=== PATIENT | male | born 1940 | race Caucasian/White ===

== ENCOUNTER 2018-03-24 06:02 | Inpatient (IN) ==
[2018-03-24] MEDS ORDERED: Acetaminophen 650 MG Supp RECTAL ONE (06:10)
[2018-03-24] MEDS ORDERED: Propofol 1000 mg/100 ml Inj 1,000 MG/100 ML BOTTLE IV.CONT PRN (06:12)
[2018-03-24] MEDS ORDERED: Sod Chloride 0.9% Inj 1,000 ML IV.SIG SCH ×3 (06:15→08:00)
--- NOTE | 2018-03-24 06:22 | ED ---
HPI General Chief Complaint: Shortness of Breath/Dyspnea Stated Complaint: SOB Time Seen by Provider: 03/24/18 06:08 History of Present Illness HPI Narrative: Patient is 78-year-old male with history of chronic sinusitis, COPD, was brought to emergency room for severe dyspnea. As per EMS patient has trouble to breathe they had to intubate him. Patient was brought to the emergency room intubated. His fever 103 Fahrenheit, Tylenol ordered, IV fluids started. Patient has severe rhonchi bilaterally, most likely due to pneumonia. Systolic blood pressure is 86, patient started on Versed drip. Patient initially agreed with intubation. Family also agreed with intubation. As per living will patient is DNR, and family agreed with no CPR in case of cardiac arrest. Case was discussed with Dr. Rodrigues, maintenance craftsman. He agreed with admission to intensive care unit in [place]. Related Data Home Medications Medication Instructions Recorded Confirmed Unable to Obtain Home Meds 03/24/18 03/24/18 Allergies Allergy/AdvReac Type Severity Reaction Status Date / Time amoxicillin Allergy Intermediate VOMITING Verified 03/24/18 06:57 cefuroxime Allergy Intermediate UNKNOWN Verified 03/24/18 06:57 clavulanic acid Allergy Intermediate VOMITING Verified 03/24/18 06:57 Sulfa (Sulfonamide Allergy Unknown ABDOMINAL Verified 03/24/18 06:57 Antibiotics) PAIN Review of Systems ROS: all other systems reviewed are negative Respiratory Reports dyspnea PMFSH Medical History Medical History COPD (chronic obstructive pulmonary disease) (Acute) Diverticulitis (Acute) Lung cancer (Acute) Sinus congestion (Acute) Social History Social History Substance History: No History of Abuse Smoking Status: Current every day smoker Tobacco Type: Cigarettes How Often Do You Have a Drink Containing Alcohol: Never Recent Travel in [facility] within the Last 8 Weeks: No Recent Out of Country Travel within the Last 8 Weeks: No Exam Narrative Exam Narrative: GENERAL: Patient is a 78-year-old male in respiratory distress, intubated. SKIN: Focused skin assessment warm/dry. HEAD: Atraumatic. Normocephalic. EYES: Pupils equal and round. No scleral icterus. No injection or drainage. ENT: No nasal bleeding or discharge. Mucous membranes pink and moist. NECK: Trachea midline. No JVD. CARDIOVASCULAR: Regular rate and rhythm. No murmur appreciated. RESPIRATORY: Intubated, bilateral rhonchi noted. GASTROINTESTINAL: Abdomen soft, non-tender, nondistended. Hepatic and splenic margins not palpable. MUSCULOSKELETAL: No obvious deformities. No clubbing. No cyanosis. No edema. NEUROLOGICAL: Awake and alert. No obvious cranial nerve deficits. Motor grossly within normal limits. Normal speech. PSYCHIATRIC: Appropriate mood and affect; insight and judgment normal. Procedures Central Line Placement Right Femoral: Time Out Performed: Yes Patient Placed on Monitor/Pulse Ox: Yes MD Prep: mask, gown, gloves and other Central Line Prep: Chlorhexidine scrub Local anesthesia used: lidocaine 1% Amount of anesthesia used (mL): 20 Ultrasound Used for Placement: Yes Central Line Lumen Inserted: triple Post Procedure: sutured in place, good blood return, all ports aspirated, flushed, capped and sterile dressing applied Patient Tolerated Procedure: well Complications: none Course Initial Documented Vital Signs Temperature 103.2 F H 03/24/18 06:05 Pulse Rate 108 H 03/24/18 06:05 Respiratory Rate 16 03/24/18 06:05 Blood Pressure 80/40 L 03/24/18 06:05 Pulse Oximetry 98 03/24/18 06:05 Last Documented Vital Signs Temperature 103.2 F H 03/24/18 06:05 Pulse Rate 106 H 03/24/18 07:35 Respiratory Rate 16 03/24/18 07:35 Blood Pressure 103/60 03/24/18 07:35 Pulse Oximetry 100 03/24/18 07:35 Critical Care Time Critical Care Time: Yes Total Critical Care Time: 50 Attestation: Aggregate critical care time was 50 minutes. Time to perform other separately billable procedures was not included in the critical care time. My time did not include minutes spent treating any other patients simultaneously or on activities that did not directly contribute to the patient's treatment. The services I provided to this patient were to treat and/or prevent clinically significant deterioration that could result in: [-] I provided critical care services requiring my management, as noted below: Chart data review, documentation time, medication orders and management, vital sign assessments/reviewing monitor data, ordering and reviewing lab tests, ordering and interpreting/reviewing x-rays and diagnostic studies, care of the patient and discussion of the patient with the admitting physicians. Patient is in critical condition, has sepsis due to pneumonia, dehydrated, has bilateral pneumonia. Admitted to ICU. Medical Decision Making MDM Narrative Medical decision making narrative: Patient presented with fever, clinically pneumonia, treated with IV fluids. Labs ordered, x-ray. Reevaluation is pending. Patient is intubated, central line placed, he was given fluids, vitals improved. Patient will be admitted to intensive care unit under Dr. Ravi parada. Medical Screen Exam Complete: Yes Emergency Medical Condition: Yes Lab Data Result diagrams: 03/24/18 06:15 03/24/18 06:50 Lab Results 03/24/18 03/24/18 03/24/18 Range/Units 06:15 06:15 06:20 CBC w Diff Auto diff final WBC 9.2 (4.0-11.0) th/mm3 RBC 4.16 L (4.50-5.90) mil/mm3 Hgb 12.3 L (13.0-17.0) gm/dL Hct 38.9 L (39.0-51.0) % MCV 93.6 (80.0-100.0) fL MCH 29.7 (27.0-34.0) pg MCHC 31.7 L (32.0-36.0) % RDW 14.1 (11.6-17.2) % Plt Count 298 (150-450) th/mm3 MPV 8.5 (7.0-11.0) fL Neut % (Auto) 82.8 H (16.0-70.0) % Lymph % (Auto) 4.0 L (9.0-44.0) % [place] % (Auto) 12.1 H (0.0-8.0) % Eos % (Auto) 0.1 (0.0-4.0) % Baso % (Auto) 1.0 (0.0-2.0) % Neut # (Auto) 7.6 (1.8-7.7) th/mm3 Lymph # (Auto) 0.4 L (1.0-4.8) th/mm3 [place] # (Auto) 1.1 H (0.0-0.9) th/mm3 Eos # (Auto) 0.0 (0.0-0.4) th/mm3 Baso # (Auto) 0.1 (0.0-0.2) th/mm3 WBC Differential . Differential Comment . Sodium (136-145) meq/L Potassium (3.5-5.1) meq/L Chloride (98-107) meq/L Lactic Acid 1.3 (0.4-2.0) mmol/L B-Natriuretic Peptide (0-100) pg/mL Ur Collection Type Cath Urine Color Yellow (Yellw/Straw) Urine Clarity Clear (Clear) Urine pH 6.0 (5.0-8.5) Ur Specific [place] Greater/equal 1.030 (1.002-1.035) Urine Protein 100 H (Neg-Trace) mg/dL Urine Glucose (UA) Negative (Negative) mg/dL Urine Ketones Negative (Negative) mg/dL Urine Occult Blood Trace (Negative) Urine Nitrate Negative (Negative) Urine Bilirubin Negative (Negative) Urine Urobilinogen 1.0 (Less than 2) mg/dL Ur Leukocyte Esterase Negative (Negative) Urine RBC 4-15 H (0-3) /hpf Urine WBC 0-5 (0-5) /hpf Urine Mucus Occasional (Occasional) /lpf Micro UA Comment Cath-culture not ind Ur Microscopic Review Microscopic reviewed Urine Culture Comments Cath-cult not ind 03/24/18 03/24/18 Range/Units 06:25 06:50 CBC w Diff WBC (4.0-11.0) th/mm3 RBC (4.50-5.90) mil/mm3 Hgb (13.0-17.0) gm/dL Hct (39.0-51.0) % MCV (80.0-100.0) fL MCH (27.0-34.0) pg MCHC (32.0-36.0) % RDW (11.6-17.2) % Plt Count (150-450) th/mm3 MPV (7.0-11.0) fL Neut % (Auto) (16.0-70.0) % Lymph % (Auto) (9.0-44.0) % [place] % (Auto) (0.0-8.0) % Eos % (Auto) (0.0-4.0) % Baso % (Auto) (0.0-2.0) % Neut # (Auto) (1.8-7.7) th/mm3 Lymph # (Auto) (1.0-4.8) th/mm3 [place] # (Auto) (0.0-0.9) th/mm3 Eos # (Auto) (0.0-0.4) th/mm3 Baso # (Auto) (0.0-0.2) th/mm3 WBC Differential Differential Comment Sodium 139 (136-145) meq/L Potassium 4.5 (3.5-5.1) meq/L Chloride 103 (98-107) meq/L Lactic Acid (0.4-2.0) mmol/L B-Natriuretic Peptide 168 H (0-100) pg/mL Ur Collection Type Urine Color (Yellw/Straw) Urine Clarity (Clear) Urine pH (5.0-8.5) Ur Specific [place] (1.002-1.035) Urine Protein (Neg-Trace) mg/dL Urine Glucose (UA) (Negative) mg/dL Urine Ketones (Negative) mg/dL Urine Occult Blood (Negative) Urine Nitrate (Negative) Urine Bilirubin (Negative) Urine Urobilinogen (Less than 2) mg/dL Ur Leukocyte Esterase (Negative) Urine RBC (0-3) /hpf Urine WBC (0-5) /hpf Urine Mucus (Occasional) /lpf Micro UA Comment Ur Microscopic Review Urine Culture Comments Imaging Data Radiologist's impression: Chest X-Ray 03/24/18 06:08 CONCLUSION: Endotracheal tube extending beyond the level of the clavicles and directed towards the right main bronchus. Recommend retraction by approximately 3 to 4 cm. New bilateral perihilar airspace opacities consistent with an infectious process. Discharge Plan Discharge Disposition Patient Disposition: ED Admit(ED Internal Use Only) Discharge Condition Condition: Critical Discharge Order Discharge Orders: ED Use Only Admit Order (Routine); Ordered 03/24/18 Ordered By: Aniket Reynolds Discharge Details Diagnosis: Respiratory failure, COPD exacerbation, Bilateral pneumonia Physicians Team ED Provider: Aniket Reynolds Primary Care Provider: Leroy Marie Rxs /Orders / Referrals /Forms Prescriptions: No Action Unable to Obtain Home Meds RF: 0 Discharge Interventions Interventions: Vital Signs Last Done: 03/24/18 07:35 Status ED Status: Admitted Patient
[2018-03-24 06:32] LABS: Bilirubin,Urine Negative (Negative); Clarity,Urine Clear (Clear); Color,Urine Yellow (Yellw/Straw); Glucose,Urine (UA) Negative (Negative); Leukocyte Esterase,Urine Negative (Negative); Nitrite,Urine Negative (Negative); Specific Gravity,Urine Greater/Equal 1.030 (1.002-1.035)
[2018-03-24 06:34] LABS: Baso # (Auto) 0.1 th/mm3 (0.0-0.2); Eos % (Auto) 0.1 % (0.0-4.0); Hematocrit 38.9 % (39.0-51.0); Hemoglobin 12.3 gm/dL (13.0-17.0); Lymph # (Auto) 0.4 th/mm3 (1.0-4.8); Mean Corpuscular HGB Conc 31.7 % (32.0-36.0); Mean Corpuscular Hemoglobin 29.7 pg (27.0-34.0); Mean Corpuscular Volume 93.6 fL (80.0-100.0); Mean Platelet Volume 8.5 fL (7.0-11.0); Mono # (Auto) 1.1 th/mm3 (0.0-0.9); Mono % (Auto) 12.1 % (0.0-8.0); Neut # (Auto) 7.6 th/mm3 (1.8-7.7); Neut % (Auto) 82.8 % (16.0-70.0); Platelet Count 298 th/mm3 (150-450); Red Blood Count 4.16 mil/mm3 (4.50-5.90); Red Cell Distribution Width 14.1 % (11.6-17.2); White Blood Count 9.2 th/mm3 (4.0-11.0)
[2018-03-24 06:42] LABS: WBC,Urine 0-5 /hpf (0-5)
[2018-03-24 06:43] LABS: Mucus,Urine Occasional /lpf (Occasional)
[2018-03-24] MEDS ORDERED: Levofloxacin 500 mg Premix Inj 500 MG/100 ML PIGGYBACK IV.SIG ONE (06:45)
[2018-03-24] MEDS ORDERED: Vancomycin Inj 1,000 MG in Sodium Chlor 0.9% Inj 250 ML IV.SIG STA (06:45)
--- NOTE | 2018-03-24 06:50 | XR ---
EXAM DATE: 03/24/2018 6:42 AM EST AGE/SEX: 78 years / Male INDICATIONS: Post intubation and NG tube placement. CLINICAL DATA: This is the patient's initial encounter. Patient reports that signs and symptoms have been present for 1 day and indicates a pain score of Nonresponsive. MEDICAL/SURGICAL HISTORY: Carcinoma, lung. COPD. Asthma. Arthritis. Diverticulitis Tonsillecto my. Hip surgery. COMPARISON: POI, XR CHEST PA AND LAT, 05/10/2017. . FINDINGS: There is an endotracheal tube with the tip directed towards the right main bronchus. Recommend retrac tion by approximately 3 to 4 cm. NG tube in extending beyond the imaged portion of the film. Heart size is normal. Pulmonary vasculature appears normal in caliber and there is bilateral perihilar patchy airspace cons olidation present. Osseous structures are unremarkable. CONCLUSION: Endotracheal tube extending beyond the level of the clavicles and directed towards the right main bro nchus. Recommend retraction by approximately 3 to 4 cm. New bilateral perihilar airspace opacities co nsistent with an infectious process. Electronically signed by: Carli Correa MD Board Certified Radiologist 03/24/2018 6:49 AM [facility] [place]
[2018-03-24] MEDS ORDERED: Sodium Chlor 0.9% Inj 500 ML IV.SIG SCH (07:00)
[2018-03-24 07:05] LABS: Chloride 103 meq/L (98-107); Potassium 4.5 meq/L (3.5-5.1); Sodium 139 meq/L (136-145)
[2018-03-24 07:34] LABS: Alanine Aminotransferase 29 U/L (12-78); Albumin 2.1 g/dL (3.4-5.0); Alkaline Phosphatase 94 U/L (45-117); Anion Gap 5 meq/L (5-15); Aspartate Aminotransferase 21 U/L (15-37); Blood Urea Nitrogen 31 mg/dL (7-18); Calcium 7.2 mg/dL (8.5-10.1); Carbon Dioxide 30.7 meq/L (21.0-32.0); Glomerular Filtration Rate Greater Than 89 mL/min (>89); Glucose,Random 148 mg/dL (74-106); Total Protein 6.1 g/dL (6.4-8.2); Troponin I 0.52 ng/mL (0.02-0.05)
[2018-03-24] MEDS ORDERED: fentaNYL Citrate Inj 100 MCG/2 ML Ampul IV PUSH PRN (07:41)
[2018-03-24] MEDS ORDERED: Bisacodyl 10 MG Supp RECTAL PRN (07:41)
[2018-03-24] MEDS: Midazolam 100 MG/100 ML Inj 100 MG/100 ML BAG IV.CONT PRN ×2 (07:56→22:41)
[2018-03-24] MEDS ORDERED: MethylPREDNISolone Sod Succinate Inj 125 MG/2 ML Vial IV.PUSH ONE (08:15)
[2018-03-24 08:18] LABS: ABG Base Excess 1.3 mmol/L (-2-2); ABG PCO2 79 mmHg (38-42); ABG PO2 463 mmHg (61-120)
[2018-03-24] MEDS ORDERED: Famotidine 20 MG Tablet PO SCH (09:00)
[2018-03-24] MEDS ORDERED: Famotidine PF Inj 20 MG/2 ML Vial IV.PUSH SCH (09:00)
--- NOTE | 2018-03-24 10:33 | P.HPCC ---
History of Present Illness Primary Care Physician: Leroy Marie MD Chief Complaint: SOB History of Present Illness: Patient is 78-year-old male with history of COPD, history of lung cancer status post chemotherapy and radiation, chronic sinusitis who was brought to emergency room for severe dyspnea. EMS was called by his roommates as the patient was severely short of breath and EMS intubated him. His fever 103 in the ER, blood pressure was borderline systolic in the 80s. Patient received 2 L normal saline IV fluid boluses in the ED. chest x-ray showed bilateral infiltrates. Received Levaquin and vancomycin after blood cultures were drawn. Critical care medicine was consulted for admission to ICU. I have requested additional 1 L fluid bolus. I have also started the patient on IV Solu-Medrol 125 mg IV x1 and 40 mg every 8. Change antibiotics to Zosyn and Levaquin. Send sputum culture check influenza. I evaluate the patient in the [place] ICU. He is critically ill intubated sedated. I discussed with Both daughters. Patient has a history of lung cancer underwent chemo and radiation [address] scan done 9 months ago was negative for recurrence. However patient was not following up, he wanted no further treatment for lung cancer in case of recurrence. He also continues to smoke. I have updated the family and indicated that he is critically ill. They want to continue aggressive care at this time and reevaluate in 48-72 hours if there is no improvement. His troponin was noted to be 0.5 to most likely demand ischemia, started aspirin daily - Diagnosis (1) Acute hypercapnic respiratory failure (2) Severe sepsis (3) Hypotension (4) Bilateral pneumonia (5) Elevated troponin (6) History of COPD (7) History of lung cancer Inpatient Certification: I certify that the inpatient services were ordered in accordance with Medicare regulations governing the order. This includes certification that hospital inpatient services are reasonable and necessary and in the case of services not specified as inpatient-only under 42 CFR 419.22(n), that they are appropriately provided as inpatient services in accordance to with the 2-midnight benchmark under 43 CFR 412.3(e) Estimated Total Length of Stay (Days): 5 Plans for Post Hospital Care: Not yet determined Review of Systems unobtainable due to endotracheal tube PMFSH - History History Provided By: Family Member, Bell Clerk / EMT - Medical History Medical History: Medical History (Last Reviewed 03/24/18 @ 10:42 by Karen Rodrigues MD) COPD (chronic obstructive pulmonary disease) Diverticulitis Lung cancer Sinus congestion - Tobacco History Tobacco Use In Past 30 Days: Yes Smoking Status: Current every day smoker Tobacco Type: Cigarettes - Alcohol History How Often Do You Have a Drink Containing Alcohol: Never - Substance Use History Substance History: No History of Abuse - Travel History Recent Travel in the [place] Within the Last 8 Weeks: No Recent Travel Out of the Country Within the Last 8 Weeks: No - Immunization History Tetanus Immunization: >5 Years Medications and Allergies Active Medications: Active Medications Al Hydroxide/Mg Hydroxide (Milk Of Stephanie Medel) 30 ml PO Q12H PRN PRN Reason: Mild Constipation Albuterol (Albuterol Neb (Prn)) 2.5 mg NEB Q2HR NEB PRN PRN Reason: SHORTNESS OF BREATH/WHEEZING Last Admin: 03/24/18 10:07 Dose: 2.5 mg Albuterol (Duoneb Neb (Junito)) 1 ampul NEB Q4HR NEB [facility] Aspirin (Aspirin Chew) 81 mg PO DAILY [facility] Bisacodyl (Dulcolax Supp) 10 mg RECTAL DAILY PRN PRN Reason: SEVERE CONSITIPATION Budesonide (Pulmocort Respule Neb) 0.5 mg NEB Q12HR NEB [facility] Chlorhexidine Gluconate (Chlorhexidine 2% Cloth) 3 pack TOPICAL DAILY@0400 JUNITO Stop: 03/30/18 03:59 Chlorhexidine Gluconate (Chlorhexidine 2% Cloth) 3 pack TOPICAL DAILY@0400 PRN PRN Reason: Extra cloth needed Stop: 03/30/18 03:59 Chlorhexidine Gluconate (Peridex 0.12% Oral Kit) 15 ml OROPHARYNG BID@0800, 2000 [facility] Enoxaparin Sodium (Lovenox Inj) 40 mg SQ Q24H [facility] Famotidine (Pepcid Pf Inj) 20 mg IV.PUSH Q12HR [facility] Fentanyl Citrate (Fentanyl Inj) 50 mcg IV PUSH Q1H PRN PRN Reason: Pain scale 6-10, &/or sedation Midazolam HCl (Versed Inj) 100 mg in 100 mls @ 2 mls/hr IV.CONT TITRATE PRN; Protocol PRN Reason: See protocol Last Titration: 03/24/18 08:50 Dose: 3 mg/hr, 3 mls/hr Sodium Chloride (Ns Inj) 1,000 mls @ 84 mls/hr IV.CONT .[id number] JUNITO Piperacillin/Tazobactam/Dextrose (Zosyn 4.5 Gm Premix) 4.5 gm in 100 mls @ 200 mls/hr IV.SIG Q6H JUNITO Levofloxacin/Dextrose (Levaquin 500 Mg Premix Inj) 500 mg in 100 mls @ 100 mls/ hr IV.SIG Q24H JUNITO Norepinephrine Bitartrate (Levophed-Dextrose 4 Mg/250 Ml Drip) 4 mg in 250 mls @ 7.5 mls/hr IV.SIG TITRATE PRN; Protocol PRN Reason: Per Protocol Propofol (Diprivan 1000 Mg/100 Ml Inj) 1,000 mg in 100 mls @ 2.381 mls/hr IV.CONT TITRATE PRN; Protocol PRN Reason: Per Protocol Lactulose (Lactulose Liq) 30 ml PO DAILY PRN PRN Reason: SEVERE CONSITIPATION Methylprednisolone Sodium Succinate (Solumedrol Inj) 40 mg IV.PUSH Q8HR [facility] Miscellaneous Medication () 1 each OROPHARYNG 0000,0400,1200,1600 JUNITO Senna/Docusate Sodium (Lisandra-Colace) 1 tab PO BID [facility] Sennosides (Senokot) 17.2 mg PO Q12H PRN PRN Reason: Moderate Constipation Sodium Chloride (Ns Flush) 2 ml IV.FLUSH BID JUNITO Sodium Chloride (Ns Flush) 2 ml IV.FLUSH PRN PRN PRN Reason: FLUSH AFTER USING IV ACCESS Terbutaline Sulfate (Brethine Inj) 1 mg SQ UNSCH PRN PRN Reason: For Extravasation Allergies Allergy/AdvReac Type Severity Reaction Status Date / Time amoxicillin Allergy Intermediate VOMITING Verified 03/24/18 06:57 cefuroxime Allergy Intermediate UNKNOWN Verified 03/24/18 06:57 clavulanic acid Allergy Intermediate VOMITING Verified 03/24/18 06:57 Sulfa (Sulfonamide Allergy Unknown ABDOMINAL Verified 03/24/18 06:57 Antibiotics) PAIN Home Medications Medication Instructions Recorded Confirmed Type Unable to Obtain Home Meds 03/24/18 03/24/18 History Results - Labs CBC & Chem 7: 03/24/18 06:15 03/24/18 06:50 Labs: Short CBC 03/24/18 Range/Units 06:15 WBC 9.2 (4.0-11.0) th/mm3 Hgb 12.3 L (13.0-17.0) gm/dL Hct 38.9 L (39.0-51.0) % Plt Count 298 (150-450) th/mm3 BMP 03/24/18 06:50 Sodium 139 Potassium 4.5 Chloride 103 Carbon Dioxide 30.7 BUN 31 H Creatinine 0.83 Calcium 7.2 L* Cardiac Enzymes 03/24/18 Range/Units 06:50 Troponin I 0.52 H (0.02-0.05) ng/mL Liver Function 03/24/18 Range/Units 06:50 Total Bilirubin 0.3 (0.2-1.0) mg/dL AST 21 (15-37) U/L ALT 29 (12-78) U/L Alkaline Phosphatase 94 (45-117) U/L Albumin 2.1 L (3.4-5.0) g/dL Urine 03/24/18 Range/Units 06:20 Urine Color Yellow (Yellw/Straw) Urine Clarity Clear (Clear) Urine pH 6.0 (5.0-8.5) Ur Specific [place] Greater/equal 1.030 (1.002-1.035) Urine Protein 100 H (Neg-Trace) mg/dL Urine Glucose (UA) Negative (Negative) mg/dL - Imaging Impressions Chest X-Ray 03/24/18 06:08 CONCLUSION: Endotracheal tube extending beyond the level of the clavicles and directed towards the right main bronchus. Recommend retraction by approximately 3 to 4 cm. New bilateral perihilar airspace opacities consistent with an infectious process. Exam Vital signs: Vital Signs 03/24/18 06:05 03/24/18 06:15 03/24/18 06:30 Temperature 103.2 F H Pulse Rate 108 H 112 H 103 H Respiratory Rate 22 22 20 Blood Pressure 80/40 L 83/65 L 90/58 L Pulse Oximetry 98 99 98 03/24/18 06:36 03/24/18 06:45 03/24/18 07:09 Temperature Pulse Rate 112 H 105 H 106 H Respiratory Rate 19 22 22 Blood Pressure 99/65 L 107/72 Pulse Oximetry 98 98 03/24/18 07:35 03/24/18 08:11 03/24/18 08:25 Temperature Pulse Rate 106 H 115 H 107 H Respiratory Rate 16 16 16 Blood Pressure 103/60 111/64 101/58 L Pulse Oximetry 100 97 03/24/18 08:56 03/24/18 10:00 Temperature Pulse Rate 98 H Respiratory Rate 16 18 Blood Pressure Pulse Oximetry 97 Intake & Output 03/23/18 03/24/18 03/24/18 18:59 06:59 18:59 Intake Total 2500 / 2499 2 / 2 Balance 2500 / 2499 2 / 2 Weight 79.379 kg Intake: IV 2500 / 2499 2 / 2 Versed Inj 100 mg In 100 ml @ 2 2 / 2 MG/HR 2 mls/hr IV.CONT TITRATE PRN Rx#:[id number] NS Inj 1,000 ML @ 1000 mls/hr 2000 / 2000 IV.SIG BOLUS JUNITO Rx#:[id number] NS Inj 500 ML @ 1000 mls/hr IV. 500 / 500 SIG BOLUS JUNITO Rx#:[id number] Narrative: GENERAL: Patient is a 78-year-old male in intubated sedated SKIN: warm/dry. HEAD: Atraumatic. Normocephalic. EYES: Pupils equal and round. No scleral icterus. No injection or drainage. ENT: No nasal bleeding or discharge. Oral tracheal intubation NECK: Trachea midline. No JVD. CARDIOVASCULAR: Regular rate and rhythm. No murmur appreciated. Borderline hypotensive RESPIRATORY: Intubated, bilateral rhonchi and expiratory wheezes GASTROINTESTINAL: Abdomen soft, non-tender, nondistended. Hepatic and splenic margins not palpable. MUSCULOSKELETAL: No obvious deformities. No clubbing. No cyanosis. No edema. NEUROLOGICAL: Intubated heavily sedated with Versed. On lightening sedation moves all 4 extremities follows commands. Septic Shock Reassessment Septic shock perfusion: reassessment completed Caprini VTE Risk Assessment Caprini VTE Risk Assessment: Moderate/High Risk (score >= 2) Caprini Risk Assessment Model: Point Value = 1 Point Value = 2 Point Value = 3 Point Value = 5 Age 41-60 Minor surgery BMI > 25 kg/m2 Swollen legs Varicose veins or History of unexplained or recurrent spontaneous Oral contraceptives or hormone replacement Sepsis (< 1 month) Serious lung disease, including pneumonia (< 1 month) Abnormal pulmonary function Acute myocardial infarction Congestive heart failure (< 1 month) History of inflammatory bowel disease Medical patient at bed rest Age 61-74 Arthroscopic surgery Major open surgery (> 45 min) Laparoscopic surgery (> 45 min) Malignancy Confined to bed (> 72 hours) Immobilizing plaster cast Central venous access Age >= 75 History of VTE Family history of VTE Factor V Leiden Prothrombin [id number] Lupus anticoagulant Anticardiolipin antibodies Elevated serum homocysteine Heparin-induced thrombocytopenia Other congenital or acquired thrombophilia Stroke (< 1 month) Elective arthroplasty Hip, pelvis, or leg fracture Acute spinal cord injury (< 1 month) Prophylaxis Regimen: Total Risk Factor Score Risk Level Prophylaxis Regimen 0-1 Low Early ambulation 2 Moderate Order ONE of the following: *Sequential Compression Device (SCD) *Heparin 5000 units SQ BID 3-4 Higher Order ONE of the following medications: *Heparin 5000 units SQ TID *Enoxaparin/Lovenox 40 mg SQ daily (WT < 150 kg, CrCl > 30 mL/min) *Enoxaparin/Lovenox 30 mg SQ daily (WT < 150 kg, CrCl > 10-29 mL/min) *Enoxaparin/Lovenox 30 mg SQ BID (WT < 150 kg, CrCl > 30 mL/min) AND/OR *Sequential Compression Device (SCD) 5 or more Highest Order ONE of the following medications: *Heparin 5000 units SQ TID (Preferred with Epidurals) *Enoxaparin/Lovenox 40 mg SQ daily (WT < 150 kg, CrCl > 30 mL/min) *Enoxaparin/Lovenox 30 mg SQ daily (WT < 150 kg, CrCl > 10-29 mL/min) *Enoxaparin/Lovenox 30 mg SQ BID (WT < 150 kg, CrCl > 30 mL/min) AND *Sequential Compression Device (SCD) Assessment and Plan - Problem List (1) Acute hypercapnic respiratory failure Code(s): J96.02 - Acute respiratory failure with hypercapnia Status: Acute (2) Severe sepsis Code(s): A41.9 - Sepsis, unspecified organism; R65.20 - Severe sepsis without septic shock Status: Acute (3) Hypotension Code(s): I95.9 - Hypotension, unspecified Status: Acute (4) Bilateral pneumonia Code(s): J18.9 - Pneumonia, unspecified organism Status: Acute (5) Elevated troponin Code(s): R74.8 - Abnormal levels of other serum enzymes Status: Acute (6) History of COPD Code(s): Z87.09 - Personal history of other diseases of the respiratory system Status: Chronic (7) History of lung cancer Code(s): Z85.118 - Personal history of other malignant neoplasm of bronchus and lung Status: Chronic - Assessment and Plan Plan: NEURO: -Propofol and Versed for sedation and ventilator synchrony -Start daily sedation vacation starting in 24 hours RESP: Acute hypercapnic respiratory failure Acute COPD exacerbation Bilateral pneumonia History of lung cancer 2 years ago -PRVC/AC. Increase tidal volume to 600. Repeat ABG in 24 hours -Ventilator bundle. DuoNeb every 4 hours scheduled and as needed -SBT when appropriate. -Broad-spectrum antibiotics with Zosyn and Levaquin. Received 1 dose of vancomycin -CT of the chest to better evaluate for pneumonia and any lung masses with a history of lung cancer CV: Elevated troponin Hypotension -Normal saline IV fluids 3 L bolus and maintenance at 84 mL per -Troponin elevation secondary to demand ischemia, if continued to trend up we will consult cardiology and get 2D echo -Aspirin 81 mg daily -Levophed if needed to keep map above 65 GI: -N.p.o., IV famotidine -Start tube feeds in 24 hours : Acute kidney insufficiency -Monitor renal function closely. Place Lezama catheter for hourly intake output -Fluid resuscitation as above ID: Bilateral pneumonia Severe Sepsis -Antibiotics Zosyn and Levaquin. 1 dose of vancomycin given in the ED -Blood urine and sputum cultures. Check for influenza HEME: History of lung CA -Monitor CBC, coags -History of lung cancer status post chemoradiation 2 years ago -Patient did not want any further treatment or workup for lung cancer ENDO: -Electrolyte replacement per protocol -Sliding scale insulin if needed PROPH: -Bilateral lower extremity SCDs. Lovenox/famotidine LINES: -Utilize peripheral IVs, right femoral central line in place by ER physician -Remove femoral central line within 24 hours CC time 55 min Code Status: Full
[2018-03-24] MEDS: Chlorhexidine 0.12% Oral Kit 15 ML UDC OROPHARYNG SCH ×2 (11:14→19:47)
[2018-03-24] MEDS: Sod Chloride 0.9% Inj 1,000 ML IV.CONT SCH ×3 (11:14→21:28)
[2018-03-24] MEDS: Famotidine PF Inj 20 MG/2 ML Vial IV.PUSH SCH ×2 (11:27→21:22)
[2018-03-24] MEDS: Senna/Docusate Sodium 8.6/50 MG Tablet PO SCH ×2 (11:27→21:22)
[2018-03-24] MEDS: Enoxaparin Inj 40 MG/0.4 ML Syringe SQ SCH (11:28)
[2018-03-24 11:41] LABS: ABG Base Excess 3.1 mmol/L (-2-2); ABG PCO2 69 mmHg (38-42); ABG PO2 127 mmHg (61-120)
[2018-03-24 11:58] LABS: Clarity,Urine Cloudy (Clear); Color,Urine Yellow (Yellw/Straw); Glucose,Urine (UA) Negative (Negative); Leukocyte Esterase,Urine Negative (Negative); Nitrite,Urine Negative (Negative); PH,Urine 5.5 (5.0-8.5); Specific Gravity,Urine Greater/Equal 1.030 (1.002-1.035)
[2018-03-24 12:05] LABS: Bilirubin,Urine Negative (Negative); Ictotest,Urine Negative (Negative)
[2018-03-24 12:07] LABS: Bacteria,Urine Few /hpf; Squamous Epithelial Cell,Urine Greater than 10 /hpf (0-5); WBC,Urine 0-5 /hpf (0-5)
--- NOTE | 2018-03-24 12:08 | ECG ---
Date Performed: 03/24/2018 Time Performed: 06:18:31 PTAGE: 78 years EKG: SINUS TACHYCARDIA ABNORMAL RHYTHM ECG NO PREVIOUS TRACING DOCTOR: Yogi Edwards Interpretating Date/Time 03/24/2018 12:06:18
[2018-03-24] MEDS: Oral Hygiene Kit OROPHARYNG SCH ×2 (12:14→16:39)
[2018-03-24] MEDS: Piperacil/Tazo 4.5 GM Premix 4.5 GM/100 ML BAG IV.SIG SCH ×3 (12:14→21:22)
--- NOTE | 2018-03-24 13:26 | CT ---
EXAM DATE: 03/24/2018 1:11 PM EST AGE/SEX: 78 years / Male INDICATIONS: Short of breath and dyspnea. CLINICAL DATA: This is the patient's initial encounter. Patient reports that signs and symptoms have been present for 1 day and indicates a pain score of Nonresponsive. MEDICAL/SURGICAL HISTORY: Chronic obstructive pulmonary disease. Diverticulitis. Carcinoma, lung. None. RADIATION DOSE: 21.65 CTDI (mGy) COMPARISON: POI, CT CHEST W/ CONTRAST, 02/15/2017. POI, CT CHEST W/ CONTRAST, 08/11/2016. POI, XR CHEST PA AND LAT, 05/10/2017. HPO, CHEST 1V SINGLE AP, 03/24/2018. . TECHNIQUE: Multiple contiguous axial images were obtained through the chest without contrast. Image s were obtained in suspended respiration using multiple row detector helical technique. Using automa chhaya exposure control and adjustment of the mA and/or kV according to patient size, radiation dose was kept as low as reasonably achievable to obtain optimal diagnostic quality images. DICOM format imag e data is available electronically for review and comparison. FINDINGS: Lungs: There are multiple new irregular nodular airspace opacities as compared to the prior CT. Thes e are seen within the anterior aspect of the lingula abutting the pleural surface measuring 2 cm in s ize and within the peripheral aspect of the right lower lobe on axial image 33 measuring 2.3 cm in si ze. Smaller peripheral irregular airspace opacities are identified within the basilar aspect of the r ight lower lobe and scattered areas of subcentimeter parenchymal opacities are identified within the anterior aspect of the left upper lobe and right upper lobe and left lower lobe.. Mild bronchiectasis identified within the right lower lobe . Mediastinum: There is an endotracheal tube identified within the just beyond the level of the endotr acheal tube. There is right hilar adenopathy and enlarged lymph nodes identified within the subcarina l region. And gastric tube being identified within the esophagus. There is an air-fluid level identif ied within Pleurae: No evidence of focal thickening or pleural effusion. Axillae: Unremarkable. Bony Structures: No evidence of lytic or blastic lesion. Miscellaneous: Imaged portion of the abdomen demonstrates calcified granulomas within the liver and spleen with an area of focal fat attenuation adjacent to the gallbladder fossa. Adrenal glands are no rmal. Small right-sided renal cyst. CONCLUSION: 1. Multiple bilateral nodular airspace opacities and hilar adenopathy concerning for neoplasm. There is an endotracheal tube identified within the trachea with a small amount of fluid seen within the t rachea. Electronically signed by: Carli Correa MD Board Certified Radiologist 03/24/2018 1:24 PM MAME T
[2018-03-24] MEDS: MethylPREDNISolone Sod Succinate Inj 40 MG/ML Vial IV.PUSH SCH ×2 (16:39→21:22)
[2018-03-25] MEDS: Oral Hygiene Kit OROPHARYNG SCH ×4 (00:37→16:21)
[2018-03-25] MEDS: Piperacil/Tazo 4.5 GM Premix 4.5 GM/100 ML BAG IV.SIG SCH ×4 (03:45→21:27)
[2018-03-25] MEDS ORDERED: Chlorhexidine Gluconate 2% 1 Pack (2 Cloths) TOPICAL PRN (04:00)
[2018-03-25] MEDS: Chlorhexidine Gluconate 2% 1 Pack (2 Cloths) TOPICAL SCH (04:37)
[2018-03-25 04:38] LABS: Baso % (Auto) 0.1 % (0.0-2.0); Eos % (Auto) 0.1 % (0.0-4.0); Hematocrit 32.3 % (39.0-51.0); Hemoglobin 10.2 gm/dL (13.0-17.0); Lymph # (Auto) 0.3 th/mm3 (1.0-4.8); Lymph % (Auto) 3.9 % (9.0-44.0); Mean Corpuscular HGB Conc 31.7 % (32.0-36.0); Mean Corpuscular Hemoglobin 29.3 pg (27.0-34.0); Mean Corpuscular Volume 92.2 fL (80.0-100.0); Mean Platelet Volume 7.7 fL (7.0-11.0); Mono # (Auto) 0.4 th/mm3 (0.0-0.9); Mono % (Auto) 4.9 % (0.0-8.0); Neut # (Auto) 7.3 th/mm3 (1.8-7.7); Platelet Count 253 th/mm3 (150-450); Red Cell Distribution Width 13.7 % (11.6-17.2)
[2018-03-25 04:43] LABS: Chloride 103 meq/L (98-107); Potassium 3.8 meq/L (3.5-5.1); Sodium 141 meq/L (136-145)
[2018-03-25 04:49] LABS: Anion Gap 8 meq/L (5-15); Calcium 7.7 mg/dL (8.5-10.1); Carbon Dioxide 29.6 meq/L (21.0-32.0); Glucose,Random 150 mg/dL (74-106); Magnesium 2.3 mg/dL (1.5-2.5)
[2018-03-25 04:50] LABS: Blood Urea Nitrogen 29 mg/dL (7-18)
[2018-03-25 04:52] LABS: Alanine Aminotransferase 31 U/L (12-78); Aspartate Aminotransferase 11 U/L (15-37)
[2018-03-25 04:53] LABS: Glomerular Filtration Rate Greater Than 89 mL/min (>89)
[2018-03-25 04:55] LABS: Alkaline Phosphatase 93 U/L (45-117)
[2018-03-25] MEDS: MethylPREDNISolone Sod Succinate Inj 40 MG/ML Vial IV.PUSH SCH ×3 (05:32→21:26)
--- NOTE | 2018-03-25 06:49 | P.PNCC ---
Subjective Subjective Remarks/Hospital Course: Patient is 78-year-old male with history of COPD, history of lung cancer status post chemotherapy and radiation, chronic sinusitis who was brought to emergency room for severe dyspnea. EMS was called by his roommates as the patient was severely short of breath and EMS intubated him. His fever 103 in the ER, blood pressure was borderline systolic in the 80s. Patient received 2 L normal saline IV fluid boluses in the ED. chest x-ray showed bilateral infiltrates. Received Levaquin and vancomycin after blood cultures were drawn. Critical care medicine was consulted for admission to ICU. I have requested additional 1 L fluid bolus. I have also started the patient on IV Solu-Medrol 125 mg IV x1 and 40 mg every 8. Change antibiotics to Zosyn and Levaquin. Send sputum culture check influenza. I evaluate the patient in the [place] ICU. He is critically ill intubated sedated. I discussed with Both daughters. Patient has a history of lung cancer underwent chemo and radiation [address] scan done 9 months ago was negative for recurrence. However patient was not following up, he wanted no further treatment for lung cancer in case of recurrence. He also continues to smoke. I have updated the family and indicated that he is critically ill. They want to continue aggressive care at this time and reevaluate in 48-72 hours if there is no improvement. His troponin was noted to be 0.5 to most likely demand ischemia, started aspirin daily 03/25: Remains intubated sedated, hypotensive currently on Levophed at 2 mcg/ min. Thick yellow secretions persist. CT of the chest yesterday did not shows any pneumonia but showed multiple nodules concerning for recurrence of lung cancer. Patient previously had decided he does not want any further treatment for lung cancer recurrence if it happens. Objective Vital Signs / I&O: Vital Signs 03/24/18 06:45 03/24/18 07:09 03/24/18 07:35 Temperature Pulse Rate 105 H 106 H 106 H Respiratory Rate 22 22 16 Blood Pressure 99/65 L 107/72 103/60 Pulse Oximetry 98 98 100 03/24/18 08:11 03/24/18 08:25 03/24/18 08:41 Temperature Pulse Rate 115 H 107 H 112 H Respiratory Rate 16 16 Blood Pressure 111/64 101/58 L Pulse Oximetry 97 96 03/24/18 08:45 03/24/18 08:56 03/24/18 09:00 Temperature 100.3 F H 100.1 F H Pulse Rate 109 H 108 H Respiratory Rate 18 16 18 Blood Pressure 102/57 L 103/57 L Pulse Oximetry 93 L 97 96 03/24/18 09:06 03/24/18 10:00 03/24/18 10:10 Temperature Pulse Rate 108 H 98 H 98 H Respiratory Rate 16 16 17 Blood Pressure 91/50 L 84/56 L 92/58 L Pulse Oximetry 94 L 95 96 03/24/18 11:00 03/24/18 11:10 03/24/18 11:24 Temperature Pulse Rate 96 H 96 H 94 H Respiratory Rate 18 17 16 Blood Pressure 83/55 L 79/55 L 88/61 L Pulse Oximetry 97 96 96 03/24/18 11:43 03/24/18 12:00 03/24/18 12:03 Temperature 98.7 F Pulse Rate 92 H 92 H 92 H Respiratory Rate 16 14 16 Blood Pressure 103/55 L 93/58 L Pulse Oximetry 97 96 97 03/24/18 12:13 03/24/18 12:28 03/24/18 12:44 Temperature Pulse Rate 92 H 92 H 90 Respiratory Rate 18 19 15 Blood Pressure 91/62 L 104/58 L 101/63 Pulse Oximetry 96 96 96 03/24/18 13:00 03/24/18 13:30 03/24/18 14:00 Temperature Pulse Rate 90 96 H 92 H Respiratory Rate 13 0 L 12 Blood Pressure 101/61 101/63 92/57 L Pulse Oximetry 100 96 94 L 03/24/18 14:37 03/24/18 14:41 03/24/18 15:00 Temperature Pulse Rate 90 84 Respiratory Rate 11 L 16 16 Blood Pressure 92/62 L 95/60 L Pulse Oximetry 95 95 03/24/18 15:48 03/24/18 16:00 03/24/18 17:00 Temperature 98.6 F Pulse Rate 82 82 86 Respiratory Rate 16 15 16 Blood Pressure 106/66 103/67 Pulse Oximetry 97 96 03/24/18 17:13 18 18:00 18 19:20 Temperature Pulse Rate 84 82 Respiratory Rate 16 15 16 Blood Pressure 100/64 Pulse Oximetry 97 97 03/24/18 19:21 03/24/18 20:00 03/24/18 21:00 Temperature 98.5 F Pulse Rate 84 82 Respiratory Rate 16 15 15 Blood Pressure 105/64 105/62 Pulse Oximetry 95 97 96 03/24/18 22:00 03/24/18 22:01 03/24/18 23:00 Temperature Pulse Rate 82 84 Respiratory Rate 16 16 15 Blood Pressure 96/62 L 108/66 Pulse Oximetry 95 95 95 03/24/18 23:35 03/25/18 00:00 03/25/18 01:00 Temperature 98.6 F Pulse Rate 84 84 82 Respiratory Rate 16 16 16 Blood Pressure 95/57 L 96/61 L Pulse Oximetry 94 L 93 L 03/25/18 01:24 03/25/18 02:00 03/25/18 03:00 Temperature Pulse Rate 90 78 Respiratory Rate 16 16 16 Blood Pressure 94/57 L 103/57 L Pulse Oximetry 98 97 96 03/25/18 03:47 03/25/18 04:00 03/25/18 05:00 Temperature Pulse Rate 78 78 80 Respiratory Rate 16 16 16 Blood Pressure 108/59 L 106/61 Pulse Oximetry 98 96 03/25/18 05:05 03/25/18 05:54 03/25/18 06:00 Temperature Pulse Rate 77 76 Respiratory Rate 16 16 Blood Pressure 110/60 Pulse Oximetry 96 97 Intake & Output 03/24/18 03/24/18 03/25/18 06:59 18:59 06:59 Intake Total 2500 / 2500 612 / 612 1300 / 1300 Output Total 450 / 450 745 / 745 Balance 2500 / 2500 162 / 162 555 / 555 Weight 79.379 kg 76.4 kg Intake: IV 2500 / 2500 552 / 552 1300 / 1300 Versed Inj 100 mg In 100 ml @ 2 2 / 2 100 / 100 MG/HR 2 mls/hr IV.CONT TITRATE PRN Rx#:[id number] NS Inj 1,000 ML @ 84 mls/hr IV. 1000 / 1000 CONT .[id number] PILLO Rx#: [id number] Levaquin 500 mg Premix Inj 500 100 / 100 mg In 100 ml @ 100 mls/hr IV. SIG ONCE ONE Rx#:[id number] Zosyn 4.5 GM Premix 4.5 gm In 200 / 200 200 / 200 100 ml @ 200 mls/hr IV.SIG Q6H PILLO Rx#:[id number] NS Inj 1,000 ML @ 1000 mls/hr 2000 / 2000 IV.SIG BOLUS PILLO Rx#:[id number] NS Inj 500 ML @ 1000 mls/hr IV. 500 / 500 SIG BOLUS PILLO Rx#:[id number] Vancomycin Inj 1,000 MG In NS 250 / 250 Inj 250 ML @ 250 mls/hr IV.SIG DINING ROOM TABLES SET UP ATTENDANT STA Rx#:[id number] Tube Irrigant 60 / 60 Output: Urine Amount (Catheter) 450 / 450 675 / 675 Indwelling Urethral Catheter 450 / 450 675 / 675 Gastric Drainage 70 / 70 Right Nare Nasogastric Tube 70 / 70 Result Diagrams: 03/25/18 04:00 03/25/18 04:00 Objective Remarks: GENERAL: Patient is a 78-year-old male in intubated sedated currently requiring propofol and Versed for sedation SKIN: warm/dry. HEAD: Atraumatic. Normocephalic. EYES: Pupils equal and round. No scleral icterus. No injection or drainage. ENT: No nasal bleeding or discharge. Oral tracheal intubation. Thick yellow secretions NECK: Trachea midline. No JVD. CARDIOVASCULAR: Regular rate and rhythm. No murmur appreciated. Hypotensive on Levophed at 2 mcg/min RESPIRATORY: Intubated, bilateral rhonchi and expiratory wheezes slightly improved GASTROINTESTINAL: Abdomen soft, non-tender, nondistended. Hepatic and splenic margins not palpable. MUSCULOSKELETAL: No obvious deformities. No clubbing. No cyanosis. No edema. NEUROLOGICAL: Intubated heavily sedated with Versed. On lightening sedation moves all 4 extremities follows commands. Assessment and Plan - Problem List (1) Acute hypercapnic respiratory failure Code(s): J96.02 - Acute respiratory failure with hypercapnia Status: Acute (2) Severe sepsis Code(s): A41.9 - Sepsis, unspecified organism; R65.20 - Severe sepsis without septic shock Status: Acute (3) Hypotension Code(s): I95.9 - Hypotension, unspecified Status: Acute (4) Bilateral pneumonia Code(s): J18.9 - Pneumonia, unspecified organism Status: Acute (5) Elevated troponin Code(s): R74.8 - Abnormal levels of other serum enzymes Status: Acute (6) History of COPD Code(s): Z87.09 - Personal history of other diseases of the respiratory system Status: Chronic (7) History of lung cancer Code(s): Z85.118 - Personal history of other malignant neoplasm of bronchus and lung Status: Chronic - Assessment and Plan Plan: NEURO: -Propofol and Versed for sedation and ventilator synchrony -Start Precedex to facilitate ventilator weaning -Start daily sedation vacation starting in 24 hours RESP: Acute hypercapnic respiratory failure Acute COPD exacerbation Pneumonia Multiple lung nodules concerning for metastatic cancer on CT History of lung cancer 2 years ago -PRVC/AC. Rate 16 TV 600. -Ventilator bundle. DuoNeb every 4 hours scheduled and as needed -SBT when appropriate. Attempts today -Broad-spectrum antibiotics with Zosyn and Levaquin. Received 1 dose of vancomycin in the emergency department -CT of the chest multiple lung nodules concerning for metastatic cancer CV: Elevated troponin-likely demand ischemia Hypotension -Normal saline IV fluids 3 L bolus and maintenance at 84 mL per -Troponin elevation secondary to demand ischemia, remains stable no indication for cardiology consult at this time -Aspirin 81 mg daily -Levophed to keep map above 65 GI: -N.p.o., IV famotidine -Start tube feeds in 24 hours if not extubated : Acute kidney insufficiency -Monitor renal function closely. Place Lezama catheter for hourly intake output -Fluid resuscitation as above ID: Bilateral pneumonia Severe Sepsis -Antibiotics Zosyn and Levaquin. 1 dose of vancomycin given in the ED -Follow-up blood urine and sputum cultures. Check for influenza HEME: History of lung CA -Monitor CBC, coags -History of lung cancer status post chemoradiation 2 years ago -Patient did not want any further treatment or workup for lung cancer ENDO: -Electrolyte replacement per protocol -Sliding scale insulin if needed PROPH: -Bilateral lower extremity SCDs. Lovenox/famotidine LINES: -Utilize peripheral IVs, right femoral central line in place by ER physician -Remove femoral central line within 24-48 hours CC time 35 min
[2018-03-25] MEDS: Famotidine PF Inj 20 MG/2 ML Vial IV.PUSH SCH (09:05)
[2018-03-25] MEDS: Chlorhexidine 0.12% Oral Kit 15 ML UDC OROPHARYNG SCH ×2 (09:06→20:20)
[2018-03-25] MEDS: Enoxaparin Inj 40 MG/0.4 ML Syringe SQ SCH (09:06)
--- NOTE | 2018-03-25 09:34 | P.CONPAL ---
Consult Service: Palliative Care Requesting Physician: Karen Rodrigues Reason for Consult: a. To assist with evaluation and management of symptoms including: Dyspnea, pain b. To assist medical decision maker(s) with: better understanding of current medical conditions; weighing benefits/burdens of medical treatment options; making medical treatment decisions. Primary Care Provider: Leroy Marie MD History of Present Illness History of Present Illness: Mr. Mehta is a 78-year-old male patient who presented [place] ED via EMS on 03/24/2018 with severe dyspnea. Patient had been intubated upon arrival to the ED.; both the patient and his family agreed to this procedure. Mr. Mehta is a DNR per his living will, his family agreed to no CPR in the event of cardiopulmonary arrest. Diagnostic data: * Vital signs: Pulse 108, respirations 22, BP 80/40, oxygen saturation 98% on 15 L via ambu-bag; rectal temperature 103.2 * WBC: 9.2, hemoglobin 12.3, hematocrit 38.9, platelets 298, neutrophils 82.8% * Lactic acid: 1.3 * Sodium: 139, potassium 4.5, chloride 103, carbon dioxide 30.7, glucose 148, calcium 7.2, calcium adj for albumin 8.7 * BUN: 31, creatinine 0.83, GFR >89 * Total bilirubin: 0.3, AST 21, ALT 29, alkaline phosphatase 94 * Troponin: 0.52 * BNP: 168 * Total protein: 6.1, albumin 2.1 * Initial urinalysis was WNL * Chest x-ray showed new bilateral perihilar airspace opacities consistent with an infectious process. Patient is critically ill with sepsis likely secondary to pneumonia and dehydration. He received IV fluids while in the ED as well as IV antibiotics ( Levaquin and Vancomycin) after blood cultures were drawn. He was also started on Solu-Medrol 120 mg IV x1 and 40 mg every 8 hours. He was admitted to the intensive care unit under Dr. Rodrigues. Troponin levels were elevated at 0.52 likely secondary to demand ischemia; patient was started on daily aspirin. CT chest on 03/24/2018 revealed multiple bilateral nodular airspace opacities and hilar adenopathy concerning for neoplasm. Patient has a history of lung cancer status post chemo and radiation [address] scan done 9 months ago was negative for recurrence. The patient has not been following up with his oncologist; he had stated he wanted no further treatment for lung cancer in case of recurrence. Dr. Rodrigues spoke to the patient's family. They wanted to continue aggressive care and reevaluate in 48-72 hours. Palliative Care was consulted to assist with symptom management and to discuss with the family the benefits and burdens of his current illnesses and the options regarding future care. Patient remains sedated and intubated on mechanical vent, requiring pressor support. Patient tolerated CPAP trials for 45 minutes this morning, but had to be put back on a rate due to worsening agitation. Ongoing red drainage from NGT. GI was consulted with tentative plan for EGD tomorrow morning. Met with patient's family (2 daughters, ex-, son-in-law and grandson). Update provided on the patient's medical conditions, overall prognosis was discussed. Family would like to honor the patient's wishes as declared in his living will, completed November 2017. They would like to give the patient the opportunity to improve with the hopes that the patient can be medically extubated. If medical extubation is not a possibility, they will likely transition to comfort focused care at the time of trach/PEG decision. Function/Cognitive Trajectory: Patient has a history of COPD and lung cancer status post chemotherapy and radiation 2 years ago. Patient has indicated to his family that should his cancer recur he would not pursue further aggressive interventions and he has not been following up with his physician. Imaging 9 months ago remained clear. Patient has supplemental oxygen in the home but he is reluctant to use it. They believe he is able to walk approximately 100 feet before becoming short of breath. The family reports subjective weight loss, approximately 10-15 pounds in recent months. Review of Systems unobtainable due to endotracheal tube PMFSH - History History Provided By: Family Member, Visual Merchandising Specialist / EMT - Medical History Medical History: Medical History (Last Updated 03/25/18 @ 09:34 by FANTASMA Fish) COPD (chronic obstructive pulmonary disease) Diverticulitis Lung cancer Osteoarthritis Port-A-Cath in place Sinus congestion - Surgical History Surgical History: Surgical History (Last Updated 03/25/18 @ 09:34 by FANTASMA Fish) History of hip surgery History of sinus surgery History of tonsillectomy - Family History Family History: Family History (Last Updated 03/25/18 @ 18:11 by FANTASMA Fish) Other Adopted person - Social History I have reviewed the patient's Social History: Yes - Tobacco History Second Hand Smoke Exposure: Yes Tobacco Use In Past 30 Days: Yes Smoking Status: Current every day smoker Tobacco Type: Cigarettes (> 36-[id number] smoking history) years: 50 - Alcohol History How Often Do You Have a Drink Containing Alcohol: Never - Substance Use History Substance History: No History of Abuse - Travel History Recent Travel in the [place] Within the Last 8 Weeks: No Recent Travel Out of the Country Within the Last 8 Weeks: No - Immunization History Tetanus Immunization: >5 Years Medications and Allergies Active Medications: Active Medications Al Hydroxide/Mg Hydroxide (Milk Of Stephanie Liq) 30 ml PO Q12H PRN PRN Reason: Mild Constipation Albuterol (Albuterol Neb (Prn)) 2.5 mg NEB Q2HR NEB PRN PRN Reason: SHORTNESS OF BREATH/WHEEZING Last Admin: 03/24/18 10:07 Dose: 2.5 mg Albuterol (Duoneb Neb ([facility])) 1 ampul NEB Q4HR NEB [facility] Last Admin: 03/25/18 07:33 Dose: 1 ampul Aspirin (Aspirin Chew) 81 mg PO DAILY [facility] Last Admin: 03/25/18 09:06 Dose: 81 mg Bisacodyl (Dulcolax Supp) 10 mg RECTAL DAILY PRN PRN Reason: SEVERE CONSITIPATION Budesonide (Pulmocort Respule Neb) 0.5 mg NEB Q12HR [facility] Last Admin: 03/25/18 07:33 Dose: 0.5 mg Chlorhexidine Gluconate (Chlorhexidine 2% Cloth) 3 pack TOPICAL DAILY@0400 [facility] Stop: 03/30/18 03:59 Last Admin: 03/25/18 04:37 Dose: 3 pack Chlorhexidine Gluconate (Chlorhexidine 2% Cloth) 3 pack TOPICAL DAILY@0400 PRN PRN Reason: Extra cloth needed Stop: 03/30/18 03:59 Chlorhexidine Gluconate (Peridex 0.12% Oral Kit) 15 ml OROPHARYNG BID@0800, 2000 [facility] Last Admin: 03/25/18 09:06 Dose: 15 ml Enoxaparin Sodium (Lovenox Inj) 40 mg SQ Q24H [facility] Last Admin: 03/25/18 09:06 Dose: 40 mg Famotidine (Pepcid Pf Inj) 20 mg IV.PUSH Q12HR [facility] Last Admin: 03/25/18 09:05 Dose: 20 mg Fentanyl Citrate (Fentanyl Inj) 50 mcg IV PUSH Q1H PRN PRN Reason: Pain scale 6-10, &/or sedation Midazolam HCl (Versed Inj) 100 mg in 100 mls @ 2 mls/hr IV.CONT TITRATE PRN; Protocol PRN Reason: See protocol Last Titration: 03/25/18 07:33 Dose: 0 mg/hr, 0 mls/hr Sodium Chloride (Ns Inj) 1,000 mls @ 84 mls/hr IV.CONT .[id number] [facility] Last Admin: 03/24/18 21:28 Dose: 84 mls/hr Piperacillin/Tazobactam/Dextrose (Zosyn 4.5 Gm Premix) 4.5 gm in 100 mls @ 200 mls/hr IV.SIG Q6H [facility] Last Admin: 03/25/18 09:06 Dose: 200 mls/hr Levofloxacin/Dextrose (Levaquin 500 Mg Premix Inj) 500 mg in 100 mls @ 100 mls/ hr IV.SIG Q24H PILLO Propofol (Diprivan 1000 Mg/100 Ml Inj) 1,000 mg in 100 mls @ 2.381 mls/hr IV.CONT TITRATE PRN; Protocol PRN Reason: Per Protocol Norepinephrine Bitartrate (Levophed-Dextrose 4 Mg/250 Ml Drip) 4 mg in 250 mls @ 7.5 mls/hr IV.SIG TITRATE PRN; Protocol PRN Reason: Per Protocol Last Titration: 03/25/18 07:18 Dose: 0 mcg/min, 0 mls/hr Dexmedetomidine HCl 200 mcg/ (Sodium Chloride) 50 mls @ 3.82 mls/hr IV.CONT TITRATE PRN; Protocol PRN Reason: Per Protocol Lactulose (Lactulose Liq) 30 ml PO DAILY PRN PRN Reason: SEVERE CONSITIPATION Methylprednisolone Sodium Succinate (Solumedrol Inj) 40 mg IV.PUSH Q8HR [facility] Last Admin: 03/25/18 05:32 Dose: 40 mg Miscellaneous Medication () 1 each OROPHARYNG 0000,0400,1200,1600 [facility] Last Admin: 03/25/18 04:37 Dose: 1 each Senna/Docusate Sodium (Lisandra-Colace) 1 tab PO BID [facility] Last Admin: 03/24/18 21:22 Dose: 1 tab Sennosides (Senokot) 17.2 mg PO Q12H PRN PRN Reason: Moderate Constipation Sodium Chloride (Ns Flush) 2 ml IV.FLUSH BID [facility] Last Admin: 03/25/18 09:06 Dose: 2 ml Sodium Chloride (Ns Flush) 2 ml IV.FLUSH PRN PRN PRN Reason: FLUSH AFTER USING IV ACCESS Terbutaline Sulfate (Brethine Inj) 1 mg SQ UNSCH PRN PRN Reason: For Extravasation Allergies Allergy/AdvReac Type Severity Reaction Status Date / Time amoxicillin Allergy Intermediate VOMITING Verified 03/24/18 06:57 cefuroxime Allergy Intermediate UNKNOWN Verified 03/24/18 06:57 clavulanic acid Allergy Intermediate VOMITING Verified 03/24/18 06:57 Sulfa (Sulfonamide Allergy Unknown ABDOMINAL Verified 03/24/18 06:57 Antibiotics) PAIN Home Medications Medication Instructions Recorded Confirmed Type albuterol sulfate 2 puff INHALATION PRN 03/24/18 History budesonide-formoterol [Symbicort] 2 puff INHALATION BID 03/24/18 03/24/18 History cephalexin 500 mg PO BID 03/24/18 03/24/18 History empty container [Nasal [place] 03/24/18 03/24/18 History Bottle] ipratropium-albuterol 3 ml INHALATION Q6-8H PRN 03/24/18 03/24/18 History montelukast 10 mg PO QPM 03/24/18 03/24/18 History naproxen sodium 220 mg PO PRN 03/24/18 History Advance Directives Advance Directives Date on File: 12/31/17 Living Will: Yes Documented care wishes: Patient completed a living will on December 31, 2017 which declares that, if at any time the patient is mentally and physically incapacitated and has a terminal condition, or an end-stage condition or is in a persistent vegetative state, he would not want the application of any procedures/interventions that would serve only to prolong artificially the process of his dying (I.e. cardiac resuscitation, mechanical respiration, blood/blood products, surgery/invasive diagnostic tests, to kidney dialysis, nutrition/hydration, pacemaker). Today's verbally stated goals: Patient is critically ill. He is sedated and intubated on mechanical ventilation, therefore unable to participate in establishment of medical treatment goals. Family/friends goals: Alternate code to include intubation, ACLS medications and cardioversion only. No compressions. Family would like to give the patient an opportunity to improve with the hope that he can be medically extubated and make his own decisions about his medical treatment goals. If this is not possible, they will likely transition to comfort focused care at the time of trach/PEG decision. Ethical and Legal Issues: No known ethical or legal issues impacting care at this time. Physical Exam Vital Signs: Vital Signs - 24 hr 03/24/18 10:00 03/24/18 10:10 03/24/18 11:00 Temperature Pulse Rate 98 H 98 H 96 H Respiratory Rate 16 17 18 Blood Pressure 84/56 L 92/58 L 83/55 L Pulse Oximetry 95 96 97 03/24/18 11:10 03/24/18 11:24 03/24/18 11:43 Temperature Pulse Rate 96 H 94 H 92 H Respiratory Rate 17 16 16 Blood Pressure 79/55 L 88/61 L 103/55 L Pulse Oximetry 96 96 97 03/24/18 12:00 03/24/18 12:03 03/24/18 12:13 Temperature 98.7 F Pulse Rate 92 H 92 H 92 H Respiratory Rate 14 16 18 Blood Pressure 93/58 L 91/62 L Pulse Oximetry 96 97 96 03/24/18 12:28 03/24/18 12:44 03/24/18 13:00 Temperature Pulse Rate 92 H 90 90 Respiratory Rate 19 15 13 Blood Pressure 104/58 L 101/63 101/61 Pulse Oximetry 96 96 100 03/24/18 13:30 03/24/18 14:00 03/24/18 14:37 Temperature Pulse Rate 96 H 92 H 90 Respiratory Rate 0 L 12 11 L Blood Pressure 101/63 92/57 L 92/62 L Pulse Oximetry 96 94 L 95 03/24/18 14:41 03/24/18 15:00 03/24/18 15:48 Temperature Pulse Rate 84 82 Respiratory Rate 16 16 16 Blood Pressure 95/60 L Pulse Oximetry 95 03/24/18 16:00 03/24/18 17:00 03/24/18 17:13 Temperature 98.6 F Pulse Rate 82 86 Respiratory Rate 15 16 16 Blood Pressure 106/66 103/67 Pulse Oximetry 97 96 97 03/24/18 18:00 03/24/18 19:20 03/24/18 19:21 Temperature Pulse Rate 84 82 Respiratory Rate 15 16 16 Blood Pressure 100/64 Pulse Oximetry 97 95 03/24/18 20:00 03/24/18 21:00 18 22:00 Temperature 98.5 F Pulse Rate 84 82 82 Respiratory Rate 15 15 16 Blood Pressure 105/64 105/62 96/62 L Pulse Oximetry 97 96 95 03/24/18 22:01 03/24/18 23:00 03/24/18 23:35 Temperature Pulse Rate 84 84 Respiratory Rate 16 15 16 Blood Pressure 108/66 Pulse Oximetry 95 95 03/25/18 00:00 03/25/18 01:00 03/25/18 01:24 Temperature 98.6 F Pulse Rate 84 82 Respiratory Rate 16 16 16 Blood Pressure 95/57 L 96/61 L Pulse Oximetry 94 L 93 L 98 03/25/18 02:00 03/25/18 03:00 03/25/18 03:47 Temperature Pulse Rate 90 78 78 Respiratory Rate 16 16 16 Blood Pressure 94/57 L 103/57 L Pulse Oximetry 97 96 03/25/18 04:00 03/25/18 05:00 03/25/18 05:05 Temperature Pulse Rate 78 80 Respiratory Rate 16 16 16 Blood Pressure 108/59 L 106/61 Pulse Oximetry 98 96 96 03/25/18 05:54 03/25/18 06:00 03/25/18 07:40 Temperature Pulse Rate 77 76 78 Respiratory Rate 16 16 Blood Pressure 110/60 Pulse Oximetry 97 03/25/18 08:01 Temperature Pulse Rate Respiratory Rate 17 Blood Pressure Pulse Oximetry 97 I&O: Intake & Output 03/23/18 03/24/18 03/25/18 03/26/18 06:59 06:59 06:59 06:59 Intake Total 2500 / 2500 1911 / 1911 Output Total 1195 / 1195 Balance 2500 / 2500 717 / 717 Weight 79.379 kg 76.4 kg Physical Exam: CONSTITUTIONAL/GENERAL: This is a frail, elderly male patient who is currently sedated and intubated on mechanical ventilation. TUBES/LINES/DRAINS: PIV x2, ETT, NGT, Lezama catheter, SCDs, soft restraints, femoral CVL SKIN: No jaundice, rashes, or lesions. Ecchymoses on upper extremities. No wounds seen anteriorly. Skin temperature appropriate. Not diaphoretic. HEAD: Atraumatic. Normocephalic. EYES: Pupils equal and round and reactive. No scleral icterus. No injection or drainage. Fundi not examined. ENT: Nose without bleeding or purulent drainage. Oral mucous membranes moist NECK: Trachea midline. Supple, nontender. No palpable thyroid enlargement or nodularity. CARDIOVASCULAR: Regular rate and rhythm without murmurs, gallops, or rubs. No JVD. Peripheral pulses symmetric. RESPIRATORY/CHEST: Symmetric, unlabored respirations. Clear to auscultation. Breath sounds diminished bilaterally. No wheezes, rales, or rhonchi. GASTROINTESTINAL: Abdomen soft, non-tender, nondistended. No hepato-splenomegaly , or palpable masses. No guarding. Bowel sounds present. GENITOURINARY: Without palpable bladder distension. Lezama catheter in place. MUSCULOSKELETAL: Extremities without clubbing, cyanosis, or edema. No mottling or clubbing. LYMPHATICS: No palpable cervical or supraclavicular adenopathy. NEUROLOGICAL: Sedated on mechanical vent. Patient was agitated on CPAP trial. He does not follow commands PSYCHIATRIC: No obvious anxiety/depression. No apparent hallucinations or other psychotic thought process. Diagnostic Tests Laboratory: Laboratory Results - last 72 hr 03/24/18 03/24/18 03/24/18 06:15 06:15 06:20 CBC w Diff Auto diff final WBC 9.2 RBC 4.16 L Hgb 12.3 L Hct 38.9 L MCV 93.6 MCH 29.7 MCHC 31.7 L RDW 14.1 Plt Count 298 MPV 8.5 Neut % (Auto) 82.8 H Lymph % (Auto) 4.0 L [place] % (Auto) 12.1 H Eos % (Auto) 0.1 Baso % (Auto) 1.0 Neut # (Auto) 7.6 Lymph # (Auto) 0.4 L [place] # (Auto) 1.1 H Eos # (Auto) 0.0 Baso # (Auto) 0.1 WBC Differential . Differential Comment . Puncture Site Patient Temperature O2 Saturation ABG pH ABG pCO2 ABG pO2 ABG HCO3 ABG O2 Content ABG Base Excess ABG Methemoglobin John Test Hemoglobin Carboxyhemoglobin O2 Delivery Device Vent Setting Inspired O2 Critical Value Sodium Potassium Chloride Carbon Dioxide Anion Gap BUN Creatinine Estimated GFR Random Glucose Lactic Acid 1.3 Calcium Calcium Adj for Albumin Magnesium Total Bilirubin AST ALT Alkaline Phosphatase Troponin I B-Natriuretic Peptide Total Protein Albumin Ur Collection Type Cath Urine Color Yellow Urine Clarity Clear Urine pH 6.0 Ur Specific [place] Greater/equal 1.030 Urine Protein 100 H Urine Glucose (UA) Negative Urine Ketones Negative Urine Occult Blood Trace Urine Nitrate Negative Urine Bilirubin Negative Urine Ictotest Urine Urobilinogen 1.0 Ur Leukocyte Esterase Negative Urine RBC 4-15 H Urine WBC 0-5 Ur Squamous Epith Cells Urine Bacteria Urine Mucus Occasional Micro UA Comment Cath-culture not ind Ur Microscopic Review Microscopic reviewed Urine Culture Comments Cath-cult not ind Nasal Screen MRSA (PCR) 03/24/18 03/24/18 03/24/18 06:25 06:50 07:33 CBC w Diff WBC RBC Hgb Hct MCV MCH MCHC RDW Plt Count MPV Neut % (Auto) Lymph % (Auto) [place] % (Auto) Eos % (Auto) Baso % (Auto) Neut # (Auto) Lymph # (Auto) Gosper # (Auto) Eos # (Auto) Baso # (Auto) WBC Differential Differential Comment Puncture Site Left radial Patient Temperature 98.6 O2 Saturation 97 ABG pH 7.19 L* ABG pCO2 79 H* ABG pO2 463 H ABG HCO3 29 H ABG O2 Content 17.5 ABG Base Excess 1.3 ABG Methemoglobin 1.3 John Test Present Hemoglobin 12.0 Carboxyhemoglobin 1.1 O2 Delivery Device Ventilator Vent Setting Prv/ac16/.5/1s/5peep Inspired O2 100 Critical Value Yes Sodium 139 Potassium 4.5 Chloride 103 Carbon Dioxide 30.7 Anion Gap 5 BUN 31 H Creatinine 0.83 Estimated GFR Greater than 89 Random Glucose 148 H Lactic Acid Calcium 7.2 L* Calcium Adj for Albumin 8.7 Magnesium Total Bilirubin 0.3 AST 21 ALT 29 Alkaline Phosphatase 94 Troponin I 0.52 H B-Natriuretic Peptide 168 H Total Protein 6.1 L Albumin 2.1 L Ur Collection Type Urine Color Urine Clarity Urine pH Ur Specific [place] Urine Protein Urine Glucose (UA) Urine Ketones Urine Occult Blood Urine Nitrate Urine Bilirubin Urine Ictotest Urine Urobilinogen Ur Leukocyte Esterase Urine RBC Urine WBC Ur Squamous Epith Cells Urine Bacteria Urine Mucus Micro UA Comment Ur Microscopic Review Urine Culture Comments Nasal Screen MRSA (PCR) 03/24/18 03/24/18 03/24/18 09:20 10:45 11:29 CBC w Diff WBC RBC Hgb Hct MCV MCH MCHC RDW Plt Count MPV Neut % (Auto) Lymph % (Auto) [place] % (Auto) Eos % (Auto) Baso % (Auto) Neut # (Auto) Lymph # (Auto) [place] # (Auto) Eos # (Auto) Baso # (Auto) WBC Differential Differential Comment Puncture Site Right radial Patient Temperature 98.6 O2 Saturation 97 ABG pH 7.26 L* ABG pCO2 69 H* ABG pO2 127 H ABG HCO3 30 H ABG O2 Content 17.2 ABG Base Excess 3.1 H ABG Methemoglobin 0.7 John Test Present Hemoglobin 12.5 Carboxyhemoglobin 1.0 O2 Delivery Device Ventilator Vent Setting Prv/ac600/16/1s/5pe Inspired O2 45 Critical Value Yes Sodium Potassium Chloride Carbon Dioxide Anion Gap BUN Creatinine Estimated GFR Random Glucose Lactic Acid Calcium Calcium Adj for Albumin Magnesium Total Bilirubin AST ALT Alkaline Phosphatase Troponin I B-Natriuretic Peptide Total Protein Albumin Ur Collection Type Cath Urine Color Yellow Urine Clarity Cloudy H Urine pH 5.5 Ur Specific [place] Greater/equal 1.030 Urine Protein 100 H Urine Glucose (UA) Negative Urine Ketones Negative Urine Occult Blood Large H Urine Nitrate Negative Urine Bilirubin Negative Urine Ictotest Negative Urine Urobilinogen 2.0 H Ur Leukocyte Esterase Negative Urine RBC 15-50 H Urine WBC 0-5 Ur Squamous Epith Cells Greater than 10 H Urine Bacteria Few H Urine Mucus Micro UA Comment Cath-culture ind Ur Microscopic Review Microscopic reviewed Urine Culture Comments Cath-cult indicated Nasal Screen MRSA (PCR) Not detected 03/24/18 03/25/18 03/25/18 13:00 04:00 04:00 CBC w Diff Auto diff final WBC 8.0 RBC 3.50 L Hgb 10.2 L D Hct 32.3 L MCV 92.2 MCH 29.3 MCHC 31.7 L RDW 13.7 Plt Count 253 MPV 7.7 Neut % (Auto) 91.0 H Lymph % (Auto) 3.9 L [place] % (Auto) 4.9 Eos % (Auto) 0.1 Baso % (Auto) 0.1 Neut # (Auto) 7.3 Lymph # (Auto) 0.3 L [place] # (Auto) 0.4 Eos # (Auto) 0.0 Baso # (Auto) 0.0 WBC Differential . Differential Comment . Puncture Site Patient Temperature O2 Saturation ABG pH ABG pCO2 ABG pO2 ABG HCO3 ABG O2 Content ABG Base Excess ABG Methemoglobin John Test Hemoglobin Carboxyhemoglobin O2 Delivery Device Vent Setting Inspired O2 Critical Value Sodium 141 Potassium 3.8 Chloride 103 Carbon Dioxide 29.6 Anion Gap 8 BUN 29 H Creatinine 0.58 L Estimated GFR Greater than 89 Random Glucose 150 H Lactic Acid Calcium 7.7 L Calcium Adj for Albumin Magnesium 2.3 Total Bilirubin 0.3 AST 11 L ALT 31 Alkaline Phosphatase 93 Troponin I 0.59 H B-Natriuretic Peptide Total Protein 6.0 L Albumin 2.0 L Ur Collection Type Urine Color Urine Clarity Urine pH Ur Specific [place] Urine Protein Urine Glucose (UA) Urine Ketones Urine Occult Blood Urine Nitrate Urine Bilirubin Urine Ictotest Urine Urobilinogen Ur Leukocyte Esterase Urine RBC Urine WBC Ur Squamous Epith Cells Urine Bacteria Urine Mucus Micro UA Comment Ur Microscopic Review Urine Culture Comments Nasal Screen MRSA (PCR) 03/25/18 04:00 CBC w Diff WBC RBC Hgb Hct MCV MCH MCHC RDW Plt Count MPV Neut % (Auto) Lymph % (Auto) [place] % (Auto) Eos % (Auto) Baso % (Auto) Neut # (Auto) Lymph # (Auto) [place] # (Auto) Eos # (Auto) Baso # (Auto) WBC Differential Differential Comment Puncture Site Patient Temperature O2 Saturation ABG pH ABG pCO2 ABG pO2 ABG HCO3 ABG O2 Content ABG Base Excess ABG Methemoglobin John Test Hemoglobin Carboxyhemoglobin O2 Delivery Device Vent Setting Inspired O2 Critical Value Sodium Potassium Chloride Carbon Dioxide Anion Gap BUN Creatinine Estimated GFR Random Glucose Lactic Acid Calcium Calcium Adj for Albumin Magnesium Total Bilirubin AST ALT Alkaline Phosphatase Troponin I 0.18 H B-Natriuretic Peptide Total Protein Albumin Ur Collection Type Urine Color Urine Clarity Urine pH Ur Specific [place] Urine Protein Urine Glucose (UA) Urine Ketones Urine Occult Blood Urine Nitrate Urine Bilirubin Urine Ictotest Urine Urobilinogen Ur Leukocyte Esterase Urine RBC Urine WBC Ur Squamous Epith Cells Urine Bacteria Urine Mucus Micro UA Comment Ur Microscopic Review Urine Culture Comments Nasal Screen MRSA (PCR) Result Diagrams: 03/25/18 04:00 03/25/18 04:00 Microbiology: Microbiology 03/24/18 10:45 Sputum - Endotracheal Gram Stain - Final 03/24/18 10:45 Sputum - Endotracheal Sputum Culture - Preliminary No growth in 24 hours 03/24/18 10:45 Clean Catch Urine Urine Culture - Preliminary No growth in 24 hours 03/24/18 06:25 Blood - Peripheral Aerobic Blood Culture - Preliminary No growth in 1 day 03/24/18 06:25 Blood - Peripheral Anaerobic Blood Culture - Preliminary No growth in 1 day 03/24/18 06:15 Blood - Peripheral Aerobic Blood Culture - Preliminary No growth in 1 day 03/24/18 06:15 Blood - Peripheral Anaerobic Blood Culture - Preliminary No growth in 1 day Imaging: Chest CT 03/24/18 09:43 CONCLUSION: 1. Multiple bilateral nodular airspace opacities and hilar adenopathy concerning for neoplasm. There is an endotracheal tube identified within the trachea with a small amount of fluid seen within the trachea. Chest X-Ray 03/25/18 07:44 CONCLUSION: Improvement with less patchy airspace disease Support apparatus in good position Procedures: 03/24/2018: Endotracheal intubation KNOT PICKER CLOTH 03/24/2018: NGT placement 03/24/2018: Right femoral central line placement Patient/Family Conference Present at Family Conference: Met with patient's family (2 daughters, ex-, son-in-law and grandson). Family Conference Location: Bedside, Consult Room, Telephone Issues Discussed: * Palliative care role, purpose, approach * Additional medical, psychosocial, and spiritual history * Patients general health, functional status, and cognitive changes in the months leading up to the current hospitalization * Patient/family understanding of the current medical problems * Patient/family understanding of prognosis * Patients goals of care as best understood from advance directives and/or conversations and/or values * Current medical treatment options and benefits/burdens of those options * Likely scenarios comparing ongoing aggressive care with a transition to comfort measures only * Questions answered to the best of my ability * Palliative care contact information provided Assessment and Plan - Disease Oriented Problem List (1) Acute hypercapnic respiratory failure (2) Severe sepsis (3) Hypotension (4) History of COPD (5) History of lung cancer (6) Elevated troponin (7) Acute kidney insufficiency (8) Bilateral pneumonia - Symptom Scale (1) Dyspnea 0-10 Scale: Unable to quantify (2) Pain 0-10 Scale: Unable to quantify Pertinent Non-Medical Issues: Psychosocial: Patient is originally from [place]. 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 He is and lives alone. He has 2 adult daughters who live locally. Spiritual: Buddhist emily Legal: Per [place] statutes, in the absence of written advanced directives healthcare proxy decision making would fall to the patient's adult children Ethical issues impacting care: No known ethical issues impacting care at this time. Important Contacts: Molly Murphy, daughter: [phone] Jolie Goncalves, daughter: [phone] Prognosis: Patient is a 78-year-old male with a known history of COPD and lung cancer status post chemotherapy and radiation times 2 years. Recent imaging consistent with pneumonia/recurrent lung cancer. Patient is currently intubated on mechanical ventilation. He becomes dyspneic with minimal exertion at baseline and has supplemental oxygen available in his home. In the event of recurrent lung cancer, patient has stated he would not pursue aggressive interventions. Given patient's advanced age, comorbid conditions and poor functional status, he is at risk for ongoing decline. Code Status: Full Code Plan: * ALTERNATE CODE (intubation, ACLS medications and cardioversion only. NO COMPRESSIONS.) * Decision making: Patient is currently sedated and intubated on mechanical intubation. Per [place] statutes, in the absence of written advanced directives healthcare proxy decision making would fall to the patient's adult children. He has at least 2 adult daughters who live locally. Daughter, Molly, states she has been designated as the healthcare surrogate decision-maker. She has been asked to bring in a copy of this document to be scanned into the patient's EMR. Family is agreeable to her acting in this role. * Patient completed a living will on December 31, 2017 which declares that, if at any time the patient is mentally and physically incapacitated and has a terminal condition, or an end-stage condition or is in a persistent vegetative state, he would not want the application of any procedures/interventions that would serve only to prolong artificially the process of his dying (I.e. cardiac resuscitation, mechanical respiration, blood/blood products, surgery/invasive diagnostic tests, to kidney dialysis, nutrition/hydration, pacemaker). * Palliative contact information provided to the patient's daughter, Molly. * Patient discussed with bedside nurse (Shirley) and Dr. Rodrigues * Update provided on the patient's medical conditions, overall prognosis was discussed. Family would like to honor the patient's wishes as declared in his living will, completed November 2017. They would like to give the patient the opportunity to improve with the hopes that the patient can be medically extubated. If medical extubation is not a possibility, they will likely transition to comfort focused care at the time of trach/PEG decision. * Symptom management-dyspnea: Multifactoral. History of COPD, previous lung cancer status post chemotherapy and radiation. Patient has supplemental oxygen in the home that he is reluctant to use. He is currently intubated on mechanical ventilation, tolerated CPAP trials for only 45 minutes this morning. Chest x-ray and CT of the lungs are concerning for pneumonia and recurrent lung cancer. On IV antibiotics, albuterol nebulizers, Pulmicort and Solu-Medrol. No further recommendations. * Symptom managementpain: Multifactoral. Contributing factors include recent intubation in the field, invasive lines, pneumonia, UTI, possible recurrent lung cancer, immobility, bedbound status. Patient is currently sedated on Versed and Precedex. Fentanyl and propofol infusions are available as needed. Ongoing monitoring for nonverbal signs and symptoms of pain are necessary. * Palliative care will continue to follow this patient throughout his hospitalization to establish trust, assist with symptom management and clarification of medical treatment goals. Appreciation Thank you for the opportunity to participate in the care of Jeremiah May. Attestation Attestation: To help prompt me to consider important information that might be impacting today's encounter and assessment, information from prior notes written by myself or my colleagues may have been "brought forward" into today's note. My signature on this note, however, is an attestation that I personally performed the exam, history, and/or decision-making noted today, and, unless otherwise indicated, the interactions with patient, family, and staff as well as the review of records all occurred today. I also attest that the listed assessment and stated plan reflect my best clinical judgment today based on the combination of historical information, prior notes, and today's exam/ interactions. When time spent is documented, it refers only to time spent today by the signer, or if indicated, combined time spent today by collaborating physician/nurse practitioner.
[2018-03-25] MEDS: Senna/Docusate Sodium 8.6/50 MG Tablet PO SCH ×2 (09:36→21:27)
[2018-03-25] MEDS ORDERED: Levofloxacin 500 mg Premix Inj 500 MG/100 ML PIGGYBACK IV.SIG SCH (10:00)
[2018-03-25] MEDS: Dexmedetomidine Inj 200 MCG in Sodium Chlor 0.9% Inj 48 ML IV.CONT PRN ×2 (10:10→13:29)
--- NOTE | 2018-03-25 10:57 | XR ---
EXAM DATE: 03/25/2018 10:13 AM EST AGE/SEX: 78 years / Male INDICATIONS: Short of Breath CLINICAL DATA: This is the patient's initial encounter. Patient reports that signs and symptoms have been present for 1 day and indicates a pain score of Nonresponsive. MEDICAL/SURGICAL HISTORY: . Carcinoma, lung. COPD. Asthma. Arthritis. Diverticulitis . Carcin ashley, lung. COPD. Asthma. Arthritis. Diverticulitis COMPARISON: HPO, CHEST 1V SINGLE AP, 03/24/2018. . FINDINGS: ET tube and nasogastric tube in good position. Heart is enlarged with mild interstitial edema. Moderate patchy airspace disease bilaterally with some improvement.. No pneumothorax. CONCLUSION: Improvement with less patchy airspace disease Support apparatus in good position Electronically signed by: Sonny Doyle MD Board Certified Radiologist 03/25/2018 10:56 AM EST
[2018-03-25] MEDS: Sod Chloride 0.9% Inj 1,000 ML IV.CONT SCH ×2 (11:39→20:20)
[2018-03-25] MEDS: Pantoprazole Inj 40 MG Vial IV.PUSH SCH (11:54)
--- NOTE | 2018-03-25 17:31 | P.CONGI ---
History of Present Illness Consult reason: Reason for consult, possible GI bleeding Chief complaint: respiatory failure,.b/l pneumon Sepsis History of Present Illness: Patient is a 78-year-old male who was admitted to the hospital with shortness of breath. He required intubation and ventilatory support for respiratory failure. Chest x-ray showed bilateral lung infiltrates. Past history is significant for lung cancer status post chemotherapy 2 years ago. During his stay in the hospital he was noticed to have red clots coming out of the NG tube. There is no history of melena or hematochezia. Labs showed a drop in hemoglobin levels. No other significant history is available as there is no family bedside and the patient is intubated. [facility] - History History Provided By: Family Member, Biostatistics Professor / EMT - Medical History Medical History: Medical History (Last Updated 03/25/18 @ 09:34 by FANTASMA Fish) COPD (chronic obstructive pulmonary disease) Diverticulitis Lung cancer Osteoarthritis Port-A-Cath in place Sinus congestion - Surgical History Surgical History: Surgical History (Last Updated 03/25/18 @ 09:34 by FANTASMA Fish) History of hip surgery History of sinus surgery History of tonsillectomy - Tobacco History Tobacco Use In Past 30 Days: Yes Smoking Status: Current every day smoker Tobacco Type: Cigarettes (> 41-ezwk-evnt smoking history) - Alcohol History How Often Do You Have a Drink Containing Alcohol: Never - Substance Use History Substance History: No History of Abuse - Travel History Recent Travel in the [place] Within the Last 8 Weeks: No Recent Travel Out of the Country Within the Last 8 Weeks: No - Immunization History Tetanus Immunization: >5 Years Medications and Allergies Active Medications: Active Medications Al Hydroxide/Mg Hydroxide (Milk Of Stephanie Liq) 30 ml PO Q12H PRN PRN Reason: Mild Constipation Albuterol (Albuterol Neb (Prn)) 2.5 mg NEB Q2HR NEB PRN PRN Reason: SHORTNESS OF BREATH/WHEEZING Last Admin: 03/24/18 10:07 Dose: 2.5 mg Albuterol (Duoneb Neb (Junito)) 1 ampul NEB Q4HR NEB JUNITO Last Admin: 03/25/18 15:29 Dose: 1 ampul Aspirin (Aspirin Chew) 81 mg PO DAILY JUNITO Last Admin: 03/25/18 09:06 Dose: 81 mg Bisacodyl (Dulcolax Supp) 10 mg RECTAL DAILY PRN PRN Reason: SEVERE CONSITIPATION Budesonide (Pulmocort Respule Neb) 0.5 mg NEB Q12HR NEB [facility] Last Admin: 03/25/18 07:33 Dose: 0.5 mg Chlorhexidine Gluconate (Chlorhexidine 2% Cloth) 3 pack TOPICAL DAILY@0400 [facility] Stop: 03/30/18 03:59 Last Admin: 03/25/18 04:37 Dose: 3 pack Chlorhexidine Gluconate (Chlorhexidine 2% Cloth) 3 pack TOPICAL DAILY@0400 PRN PRN Reason: Extra cloth needed Stop: 03/30/18 03:59 Chlorhexidine Gluconate (Peridex 0.12% Oral Kit) 15 ml OROPHARYNG BID@0800, 2000 [facility] Last Admin: 03/25/18 09:06 Dose: 15 ml Enoxaparin Sodium (Lovenox Inj) 40 mg SQ Q24H [facility] Last Admin: 03/25/18 09:06 Dose: 40 mg Fentanyl Citrate (Fentanyl Inj) 50 mcg IV PUSH Q1H PRN PRN Reason: Pain scale 6-10, &/or sedation Midazolam HCl (Versed Inj) 100 mg in 100 mls @ 2 mls/hr IV.CONT TITRATE PRN; Protocol PRN Reason: See protocol Last Titration: 03/25/18 07:33 Dose: 0 mg/hr, 0 mls/hr Sodium Chloride (Ns Inj) 1,000 mls @ 84 mls/hr IV.CONT .[id number] [facility] Last Admin: 03/25/18 11:39 Dose: 84 mls/hr Piperacillin/Tazobactam/Dextrose (Zosyn 4.5 Gm Premix) 4.5 gm in 100 mls @ 200 mls/hr IV.SIG Q6H [facility] Last Admin: 03/25/18 15:00 Dose: 200 mls/hr Levofloxacin/Dextrose (Levaquin 500 Mg Premix Inj) 500 mg in 100 mls @ 100 mls/ hr IV.SIG Q24H [facility] Last Infusion: 03/25/18 11:00 Dose: Infused Propofol (Diprivan 1000 Mg/100 Ml Inj) 1,000 mg in 100 mls @ 2.381 mls/hr IV.CONT TITRATE PRN; Protocol PRN Reason: Per Protocol Norepinephrine Bitartrate (Levophed-Dextrose 4 Mg/250 Ml Drip) 4 mg in 250 mls @ 7.5 mls/hr IV.SIG TITRATE PRN; Protocol PRN Reason: Per Protocol Last Titration: 03/25/18 07:18 Dose: 0 mcg/min, 0 mls/hr Dexmedetomidine HCl 200 mcg/ (Sodium Chloride) 50 mls @ 3.82 mls/hr IV.CONT TITRATE PRN; Protocol PRN Reason: Per Protocol Last Admin: 03/25/18 13:29 Dose: 0.1 mcg/kg/hr, 1.91 mls/hr Lactulose (Lactulose Liq) 30 ml PO DAILY PRN PRN Reason: SEVERE CONSITIPATION Methylprednisolone Sodium Succinate (Solumedrol Inj) 40 mg IV.PUSH Q8HR [facility] Last Admin: 03/25/18 14:00 Dose: 40 mg Miscellaneous Medication () 1 each OROPHARYNG 0000,0400,1200,1600 [facility] Last Admin: 03/25/18 16:21 Dose: 1 each Pantoprazole Sodium (Protonix Inj) 40 mg IV.PUSH Q12H [facility] Last Admin: 03/25/18 11:54 Dose: 40 mg Senna/Docusate Sodium (Lisandra-Colace) 1 tab PO BID [facility] Last Admin: 03/25/18 09:36 Dose: 1 tab Sennosides (Senokot) 17.2 mg PO Q12H PRN PRN Reason: Moderate Constipation Sodium Chloride (Ns Flush) 2 ml IV.FLUSH BID [facility] Last Admin: 03/25/18 09:06 Dose: 2 ml Sodium Chloride (Ns Flush) 2 ml IV.FLUSH PRN PRN PRN Reason: FLUSH AFTER USING IV ACCESS Terbutaline Sulfate (Brethine Inj) 1 mg SQ UNSCH PRN PRN Reason: For Extravasation Allergies Allergy/AdvReac Type Severity Reaction Status Date / Time amoxicillin Allergy Intermediate VOMITING Verified 03/24/18 06:57 cefuroxime Allergy Intermediate UNKNOWN Verified 03/24/18 06:57 clavulanic acid Allergy Intermediate VOMITING Verified 03/24/18 06:57 Sulfa (Sulfonamide Allergy Unknown ABDOMINAL Verified 03/24/18 06:57 Antibiotics) PAIN Home Medications Medication Instructions Recorded Confirmed Type albuterol sulfate 2 puff INHALATION PRN 03/24/18 History budesonide-formoterol [Symbicort] 2 puff INHALATION BID 03/24/18 03/24/18 History cephalexin 500 mg PO BID 03/24/18 03/24/18 History empty container [Nasal [place] 03/24/18 03/24/18 History Bottle] ipratropium-albuterol 3 ml INHALATION Q6-8H PRN 03/24/18 03/24/18 History montelukast 10 mg PO QPM 03/24/18 03/24/18 History naproxen sodium 220 mg PO PRN 03/24/18 History Exam Vital signs: Vital Signs 03/24/18 18:00 03/24/18 19:20 03/24/18 19:21 Temperature Pulse Rate 84 82 Respiratory Rate 15 16 16 Blood Pressure 100/64 Pulse Oximetry 97 95 03/24/18 20:00 03/24/18 21:00 03/24/18 22:00 Temperature 98.5 F Pulse Rate 84 82 82 Respiratory Rate 15 15 16 Blood Pressure 105/64 105/62 96/62 L Pulse Oximetry 97 96 95 03/24/18 22:01 03/24/18 23:00 03/24/18 23:35 Temperature Pulse Rate 84 84 Respiratory Rate 16 15 16 Blood Pressure 108/66 Pulse Oximetry 95 95 03/25/18 00:00 03/25/18 01:00 03/25/18 01:24 Temperature 98.6 F Pulse Rate 84 82 Respiratory Rate 16 16 16 Blood Pressure 95/57 L 96/61 L Pulse Oximetry 94 L 93 L 98 03/25/18 02:00 03/25/18 03:00 03/25/18 03:47 Temperature Pulse Rate 90 78 78 Respiratory Rate 16 16 16 Blood Pressure 94/57 L 103/57 L Pulse Oximetry 97 96 03/25/18 04:00 03/25/18 05:00 03/25/18 05:05 Temperature Pulse Rate 78 80 Respiratory Rate 16 16 16 Blood Pressure 108/59 L 106/61 Pulse Oximetry 98 96 96 03/25/18 05:54 03/25/18 06:00 03/25/18 07:00 Temperature Pulse Rate 77 76 74 Respiratory Rate 16 16 Blood Pressure 110/60 119/65 Pulse Oximetry 97 97 03/25/18 07:40 03/25/18 08:00 12/17/18 08:01 Temperature 97.6 F Pulse Rate 78 79 Respiratory Rate 16 16 17 Blood Pressure 114/81 Pulse Oximetry 96 97 03/25/18 09:00 03/25/18 09:35 03/25/18 10:00 Temperature Pulse Rate 76 106 H Respiratory Rate 16 28 H 39 H Blood Pressure 119/65 140/72 Pulse Oximetry 96 03/25/18 10:15 03/25/18 11:00 03/25/18 11:43 Temperature Pulse Rate 68 66 Respiratory Rate 16 16 16 Blood Pressure 122/71 Pulse Oximetry 96 97 03/25/18 12:00 03/25/18 13:00 03/25/18 13:43 Temperature 98.7 F Pulse Rate 66 70 Respiratory Rate 16 16 16 Blood Pressure 140/74 131/70 Pulse Oximetry 96 96 98 03/25/18 15:29 03/25/18 15:33 03/25/18 16:30 Temperature Pulse Rate 64 Respiratory Rate 16 16 Blood Pressure Pulse Oximetry 97 95 Intake & Output 03/24/18 03/25/18 03/25/18 18:59 06:59 18:59 Intake Total 612 / 612 1300 / 1300 1250 / 1250 Output Total 450 / 450 745 / 745 Balance 162 / 162 555 / 555 1250 / 1250 Weight 76.4 kg Intake: IV 552 / 552 1300 / 1300 1250 / 1250 Precedex Inj 200 MCG In NS Inj 50 / 50 48 ML @ 0.2 MCG/KG/HR 3.82 mls/ hr IV.CONT TITRATE PRN Rx#: [id number] Versed Inj 100 mg In 100 ml @ 2 2 / 2 100 / 100 MG/HR 2 mls/hr IV.CONT TITRATE PRN Rx#:[id number] NS Inj 1,000 ML @ 84 mls/hr IV. 1000 / 1000 1000 / 1000 CONT .[id number] JUNITO Rx#: [id number] Levaquin 500 mg Premix Inj 500 100 / 100 100 / 100 mg In 100 ml @ 100 mls/hr IV. SIG Q24H JUNITO Rx#:[id number] Zosyn 4.5 GM Premix 4.5 gm In 200 / 200 200 / 200 100 / 100 100 ml @ 200 mls/hr IV.SIG Q6H JUNITO Rx#:[id number] Vancomycin Inj 1,000 MG In NS 250 / 250 Inj 250 ML @ 250 mls/hr IV.SIG [place] [facility] Rx#:[id number] Tube Irrigant 60 / 60 Output: Urine Amount (Catheter) 450 / 450 675 / 675 Indwelling Urethral Catheter 450 / 450 675 / 675 Gastric Drainage 70 / 70 Right Nare Nasogastric Tube 70 / 70 - Constitutional Comments: Patient is intubated, restless. Following no vocal commands. - Routine Respiratory Exam Present: wheezes, crackles Comments: Auscultation reveals bilateral rhonchi and rales at both the bases - Routine Abdominal Exam Comments: Abdomen soft no guarding or rigidity. Liver spleen not palpable no other masses palpable no ascites bowel sounds are sluggish. Results - Labs CBC & Chem 7: 03/25/18 04:00 03/25/18 04:00 Labs: Laboratory Results - last 24 hr 03/24/18 03/25/18 03/25/18 09:20 04:00 04:00 CBC w Diff Auto diff final WBC 8.0 RBC 3.50 L Hgb 10.2 L D Hct 32.3 L MCV 92.2 MCH 29.3 MCHC 31.7 L RDW 13.7 Plt Count 253 MPV 7.7 Neut % (Auto) 91.0 H Lymph % (Auto) 3.9 L Jasper % (Auto) 4.9 Eos % (Auto) 0.1 Baso % (Auto) 0.1 Neut # (Auto) 7.3 Lymph # (Auto) 0.3 L Jasper # (Auto) 0.4 Eos # (Auto) 0.0 Baso # (Auto) 0.0 WBC Differential . Differential Comment . Sodium 141 Potassium 3.8 Chloride 103 Carbon Dioxide 29.6 Anion Gap 8 BUN 29 H Creatinine 0.58 L Estimated GFR Greater than 89 Random Glucose 150 H Calcium 7.7 L Magnesium 2.3 Total Bilirubin 0.3 AST 11 L ALT 31 Alkaline Phosphatase 93 Troponin I Total Protein 6.0 L Albumin 2.0 L Nasal Screen MRSA (PCR) Not detected 03/25/18 04:00 CBC w Diff WBC RBC Hgb Hct MCV MCH MCHC RDW Plt Count MPV Neut % (Auto) Lymph % (Auto) Jasper % (Auto) Eos % (Auto) Baso % (Auto) Neut # (Auto) Lymph # (Auto) Jasper # (Auto) Eos # (Auto) Baso # (Auto) WBC Differential Differential Comment Sodium Potassium Chloride Carbon Dioxide Anion Gap BUN Creatinine Estimated GFR Random Glucose Calcium Magnesium Total Bilirubin AST ALT Alkaline Phosphatase Troponin I 0.18 H Total Protein Albumin Nasal Screen MRSA (PCR) - Imaging Impressions Chest X-Ray 03/25/18 07:44 CONCLUSION: Improvement with less patchy airspace disease Support apparatus in good position Assessment and Plan (1) Upper GI bleeding Status: Acute Code(s): K92.2 - Gastrointestinal hemorrhage, unspecified - Plan 1. Possible causes of bloody NG tube aspirate include severe erosive esophagitis, peptic ulcer disease, vascular malformations. Less likely possibilities include metastases from lung cancer. 2. Monitor hemoglobin every 8 hours 3. Continue supportive treatment 4. Continue IV Protonix 40 twice daily 5. EGD in the a.m.
[2018-03-25] MEDS: Propofol 1000 mg/100 ml Inj 1,000 MG/100 ML BOTTLE IV.CONT PRN ×2 (18:00→23:06)
[2018-03-26] MEDS: Pantoprazole Inj 40 MG Vial IV.PUSH SCH ×2 (00:11→12:15)
[2018-03-26] MEDS: Oral Hygiene Kit OROPHARYNG SCH ×4 (00:12→16:00)
[2018-03-26] MEDS: Sod Chloride 0.9% Inj 1,000 ML IV.CONT SCH (00:47)
[2018-03-26] MEDS: Dexmedetomidine Inj 200 MCG in Sodium Chlor 0.9% Inj 48 ML IV.CONT PRN ×4 (02:32→19:42)
[2018-03-26] MEDS: Chlorhexidine Gluconate 2% 1 Pack (2 Cloths) TOPICAL SCH (03:12)
[2018-03-26] MEDS: Piperacil/Tazo 4.5 GM Premix 4.5 GM/100 ML BAG IV.SIG SCH ×4 (03:13→21:46)
[2018-03-26] MEDS: Propofol 1000 mg/100 ml Inj 1,000 MG/100 ML BOTTLE IV.CONT PRN ×4 (03:15→19:41)
[2018-03-26] MEDS: MethylPREDNISolone Sod Succinate Inj 40 MG/ML Vial IV.PUSH SCH ×3 (05:04→21:45)
--- NOTE | 2018-03-26 06:17 | XR ---
EXAM DATE: 03/26/2018 5:53 AM EST AGE/SEX: 78 years / Male INDICATIONS: Shortness of breath. CLINICAL DATA: This is the patient's subsequent encounter. Patient reports that signs and symptoms h ave been present for 3 days and indicates a pain score of Nonresponsive. MEDICAL/SURGICAL HISTORY: . Carcinoma, lung. COPD. Asthma. Arthritis. Diverticulitis. None. COMPARISON: HPO, CHEST 1V SINGLE AP, 03/25/2018. . FINDINGS: ET tube tip well above the kalin. Gastric tube traverses the parqs-or-suja. Stable elevation right h emidiaphragm. Some patchy areas of nonconsolidative infiltrate in the mid and lower lungs bilaterally appears improved when compared to yesterday's exam. The heart is normal size. CONCLUSION: Decrease in bilateral nonconsolidative infiltrates. Electronically signed by: Jeremiah Laboy MD Board Certified Radiologist 03/26/2018 6:16 AM EST
--- NOTE | 2018-03-26 06:46 | P.PNCC ---
Subjective Subjective Remarks/Hospital Course: Patient is 78-year-old male with history of COPD, history of lung cancer status post chemotherapy and radiation, chronic sinusitis who was brought to emergency room for severe dyspnea. EMS was called by his roommates as the patient was severely short of breath and EMS intubated him. His fever 103 in the ER, blood pressure was borderline systolic in the 80s. Patient received 2 L normal saline IV fluid boluses in the ED. chest x-ray showed bilateral infiltrates. Received Levaquin and vancomycin after blood cultures were drawn. Critical care medicine was consulted for admission to ICU. I have requested additional 1 L fluid bolus. I have also started the patient on IV Solu-Medrol 125 mg IV x1 and 40 mg every 8. Change antibiotics to Zosyn and Levaquin. Send sputum culture check influenza. I evaluate the patient in the [facility]. He is critically ill intubated sedated. I discussed with Both daughters. Patient has a history of lung cancer underwent chemo and radiation [address] scan done 9 months ago was negative for recurrence. However patient was not following up, he wanted no further treatment for lung cancer in case of recurrence. He also continues to smoke. I have updated the family and indicated that he is critically ill. They want to continue aggressive care at this time and reevaluate in 48-72 hours if there is no improvement. His troponin was noted to be 0.5 to most likely demand ischemia, started aspirin daily 03/25: Remains intubated sedated, hypotensive currently on Levophed at 2 mcg/ min. Thick yellow secretions persist. CT of the chest yesterday did not shows any pneumonia but showed multiple nodules concerning for recurrence of lung cancer. Patient previously had decided he does not want any further treatment for lung cancer recurrence if it happens. 03/26: Failed CPAP trials yesterday due to anxiety and dyspnea. Currently sedated with propofol and Precedex. Continue to have bloody output from NG tube. EGD per GI today. Continue IV Protonix. CBC today pending. Remains on 1 mcg/min of Levophed Objective Vital Signs / I&O: Vital Signs 03/25/18 07:00 03/25/18 07:40 03/25/18 08:00 Temperature 97.6 F Pulse Rate 74 78 79 Respiratory Rate 16 16 16 Blood Pressure 119/65 114/81 Pulse Oximetry 97 96 03/25/18 08:01 03/25/18 09:00 03/25/18 09:35 Temperature Pulse Rate 76 Respiratory Rate 17 16 28 H Blood Pressure 119/65 Pulse Oximetry 97 96 03/25/18 10:00 03/25/18 10:15 03/25/18 11:00 Temperature Pulse Rate 106 H 68 Respiratory Rate 39 H 16 16 Blood Pressure 140/72 122/71 Pulse Oximetry 96 97 03/25/18 11:43 03/25/18 12:00 03/25/18 13:00 Temperature 98.7 F Pulse Rate 66 66 70 Respiratory Rate 16 16 16 Blood Pressure 140/74 131/70 Pulse Oximetry 96 96 03/25/18 13:16 03/25/18 13:43 03/25/18 14:00 Temperature Pulse Rate 53 L 68 Respiratory Rate 16 16 Blood Pressure 124/71 Pulse Oximetry 98 98 03/25/18 15:00 03/25/18 15:29 03/25/18 15:33 Temperature Pulse Rate 66 64 Respiratory Rate 16 16 Blood Pressure 121/67 Pulse Oximetry 97 97 03/25/18 16:00 03/25/18 16:30 03/25/18 17:00 Temperature 98.7 F Pulse Rate 68 74 Respiratory Rate 16 16 18 Blood Pressure 106/60 109/56 L Pulse Oximetry 95 95 95 03/25/18 18:00 03/25/18 19:00 03/25/18 19:42 Temperature Pulse Rate 74 70 72 Respiratory Rate 18 15 17 Blood Pressure 114/61 114/61 Pulse Oximetry 96 96 98 03/25/18 20:00 03/25/18 21:00 03/25/18 21:47 Temperature 98.0 F Pulse Rate 74 72 Respiratory Rate 15 16 16 Blood Pressure 112/63 113/57 L Pulse Oximetry 96 94 L 93 L 03/25/18 22:00 03/25/18 23:00 03/26/18 00:00 Temperature 97.7 F Pulse Rate 68 66 74 Respiratory Rate 15 17 16 Blood Pressure 108/61 108/59 L 118/67 Pulse Oximetry 94 L 95 95 03/26/18 00:03 03/26/18 01:00 03/26/18 01:04 Temperature Pulse Rate 57 L 66 Respiratory Rate 16 16 16 Blood Pressure 116/66 Pulse Oximetry 95 94 L 03/26/18 02:00 03/26/18 03:00 03/26/18 03:06 Temperature Pulse Rate 74 56 L 73 Respiratory Rate 26 H 17 16 Blood Pressure 117/60 131/72 Pulse Oximetry 97 97 03/26/18 04:00 03/26/18 04:30 03/26/18 05:00 Temperature 98.0 F Pulse Rate 62 58 L Respiratory Rate 16 16 16 Blood Pressure 125/58 L 110/58 L Pulse Oximetry 95 93 L 94 L 03/26/18 06:00 03/26/18 06:01 Temperature Pulse Rate 74 58 L Respiratory Rate 16 Blood Pressure 138/79 Pulse Oximetry 97 Intake & Output 03/25/18 03/25/18 03/26/18 06:59 18:59 06:59 Intake Total 1300 / 1300 1410 / 1410 1760 / 1760 Output Total 745 / 745 325 / 325 580 / 580 Balance 555 / 555 1085 / 1085 1180 / 1180 Weight 76.4 kg 77.8 kg Intake: IV 1300 / 1300 1350 / 1350 1700 / 1700 Precedex Inj 200 MCG In NS Inj 50 / 50 50 / 50 48 ML @ 0.2 MCG/KG/HR 3.82 mls/ hr IV.CONT TITRATE PRN Rx#: [id number] Versed Inj 100 mg In 100 ml @ 2 100 / 100 MG/HR 2 mls/hr IV.CONT TITRATE PRN Rx#:[id number] Diprivan 1000 mg/100 ml Inj 1, 200 / 200 000 mg In 100 ml @ 5 MCG/KG/MIN 2.381 mls/hr IV.CONT TITRATE PRN Rx#:[id number] NS Inj 1,000 ML @ 84 mls/hr IV. 1000 / 1000 1000 / 1000 1000 / 1000 CONT .[id number] [facility] Rx#: [id number] Levaquin 500 mg Premix Inj 500 100 / 100 mg In 100 ml @ 100 mls/hr IV. SIG Q24H [facility] Rx#:[id number] Levophed-Dextrose 4 mg/250 ml 250 / 250 Drip 4 mg In 250 ml @ 2 MCG/MIN 7.5 mls/hr IV.SIG TITRATE PRN Rx#:[id number] Zosyn 4.5 GM Premix 4.5 gm In 200 / 200 200 / 200 200 / 200 100 ml @ 200 mls/hr IV.SIG Q6H [facility] Rx#:[id number] Tube Irrigant 60 / 60 60 / 60 Output: Urine 125 / 125 Urine Amount (Catheter) 675 / 675 325 / 325 355 / 355 Indwelling Urethral Catheter 675 / 675 325 / 325 355 / 355 Gastric Drainage 70 / 70 100 / 100 Right Nare Nasogastric Tube 70 / 70 100 / 100 Result Diagrams: 03/25/18 04:00 03/25/18 04:00 Objective Remarks: GENERAL: Patient is a 78-year-old male in intubated sedated currently requiring propofol and Precedex for sedation SKIN: warm/dry. HEAD: Atraumatic. Normocephalic. EYES: Pupils equal and round. No scleral icterus. No injection or drainage. ENT: No nasal bleeding or discharge. Oral tracheal intubation. Thick yellow secretions NECK: Trachea midline. No JVD. CARDIOVASCULAR: Regular rate and rhythm. No murmur appreciated. Levophed at 1 mcg/min RESPIRATORY: Intubated, bilateral rhonchi and expiratory wheezes improved GASTROINTESTINAL: Abdomen soft, non-tender, nondistended. Hepatic and splenic margins not palpable. NG tube with bloody output MUSCULOSKELETAL: No obvious deformities. No clubbing. No cyanosis. No edema. NEUROLOGICAL: Intubated sedated with fall on Precedex. On lightening sedation moves all 4 extremities follows commands. Assessment and Plan - Problem List (1) Acute hypercapnic respiratory failure Code(s): J96.02 - Acute respiratory failure with hypercapnia Status: Acute (2) Severe sepsis Code(s): A41.9 - Sepsis, unspecified organism; R65.20 - Severe sepsis without septic shock Status: Acute (3) Hypotension Code(s): I95.9 - Hypotension, unspecified Status: Acute (4) Bilateral pneumonia Code(s): J18.9 - Pneumonia, unspecified organism Status: Acute (5) Elevated troponin Code(s): R74.8 - Abnormal levels of other serum enzymes Status: Acute (6) History of COPD Code(s): Z87.09 - Personal history of other diseases of the respiratory system Status: Chronic (7) History of lung cancer Code(s): Z85.118 - Personal history of other malignant neoplasm of bronchus and lung Status: Chronic - Assessment and Plan Plan: NEURO: -Propofol and Precedex for sedation and ventilator synchrony -Start Ativan 0.5 mg p.o. every 6 hours to reduce IV sedation -Daily sedation vacation after EGD RESP: Acute hypercapnic respiratory failure Acute COPD exacerbation Pneumonia Multiple lung nodules concerning for metastatic cancer on CT History of lung cancer 2 years ago -PRVC/AC. Rate 16 TV 600. Start spontaneous breathing trials -Ventilator bundle. DuoNeb every 4 hours scheduled and as needed -Broad-spectrum antibiotics with Zosyn and Levaquin-DC Levaquin today received 1 dose of vancomycin in the emergency department -CT of the chest multiple lung nodules concerning for metastatic cancer CV: Elevated troponin-likely demand ischemia Hypotension -Normal saline IV fluids 3 L bolus and maintenance at 84 mL per -Discontinue normal saline, give Lasix 20 mg IV x1 -Troponin elevation secondary to demand ischemia, remains stable no indication for cardiology consult at this time -Aspirin 81 mg daily -Levophed to keep map above 65 GI: Upper GI bleed -N.p.o., IV Protonix 40 mg every 12 -GI planning on EGD today -Start tube feeds after EGD and if cleared by GI : Acute kidney insufficiency -Monitor renal function closely. Lezama catheter for hourly intake output -IV Lasix as above ID: Bilateral pneumonia Severe Sepsis -Antibiotics Zosyn and discontinue Levaquin. 1 dose of vancomycin given in the ED -Follow-up blood urine and sputum cultures. Sputum culture is negative to date , influenza test never sent check for influenza HEME: History of lung CA -Monitor CBC, coags -History of lung cancer status post chemoradiation 2 years ago -Patient did not want any further treatment or workup for lung cancer ENDO: -Electrolyte replacement per protocol -Sliding scale insulin if needed PROPH: -Bilateral lower extremity SCDs. Hold Lovenox, continue IV Protonix 40 every 12 LINES: -Utilize peripheral IVs, right femoral central line in place by ER physician- discontinued today after EGD CC time 35 min
[2018-03-26 07:06] LABS: Hematocrit 33.2 % (39.0-51.0); Hemoglobin 10.9 gm/dL (13.0-17.0); Mean Corpuscular HGB Conc 32.9 % (32.0-36.0); Mean Corpuscular Hemoglobin 29.9 pg (27.0-34.0); Mean Corpuscular Volume 90.6 fL (80.0-100.0); Platelet Count 295 th/mm3 (150-450); Red Blood Count 3.67 mil/mm3 (4.50-5.90); Red Cell Distribution Width 13.6 % (11.6-17.2); White Blood Count 10.5 th/mm3 (4.0-11.0)
[2018-03-26] MEDS: Senna/Docusate Sodium 8.6/50 MG Tablet PO SCH ×2 (09:30→21:45)
[2018-03-26] MEDS: Chlorhexidine 0.12% Oral Kit 15 ML UDC OROPHARYNG SCH ×2 (09:30→20:58)
[2018-03-26] MEDS: LORazepam 0.5 MG Tablet PO SCH ×2 (12:16→19:11)
--- NOTE | 2018-03-26 15:13 | P.DIET ---
Nutritional Evaluation Type of nutrition evaluation: initial Nutrition consult regarding: Tube Feeding Objective - Diagnosis Resp failure, bilateral pneumonia, sepsis - Objective % IBW: 107 Body Weight Used for Calculations: Actual (Current Wt 77.8 kg) Energy Needs - Lower Range (kCal/kg): 25 Energy Needs - Upper Range (kCal/kg): 30 Lower Limit kCal/kg (kCals): 1,945 Upper Limit kCal/kg (kCals): 2,334 Lower Limit Protein Factor (Grams per Kg): 1.1 Upper Limit Protein Factor (Grams per Kg): 1.4 Lower Protein Needs (Protein): 86 Upper Protein Needs (Protein): 109 Dietitian Reviewed in Medical Record: Curent medications, Intake & Output, Labs , Medical history, Tube feeding Diet Order: NPO Objective Comments: PMH includes: COPD, diverticulitis, Lung Cancer, Osteoarthritis, Port-A-Cath inplace, sinus congestion Meds include: IV protonix, propofol Assessment Assessment: Pt is at nutritional risk r/t diagnosis and need for TF'ing. Upper GI bleed w/ GI plan for EGD today and TF'ing to start after EGD if cleared by GI. Rec TF' ing w/Vital 1.5 @ goal rate 50ml/hr w/Propofol running and Beneprotein packet TID to offer 2379 kcal, 99g protein and 917ml free water. Rec TF'ing w/Vital 1.5 @ goal rate 55ml/hr when Propofol is no longer running to offer 1980 kcal, 89.1g protein and 1008ml free water. Recommendations: 1. Rec TF'ing w/Vital 1.5 @ goal rate 50ml/hr w/Propofol running and Beneprotein packet TID 2. Rec TF'ing w/Vital 1.5 @ goal rate 55ml/hr when Propofol is no longer running Dietitian to Monitor: Lab values, Glucose level, Intake & Output, Tube feeding tolerance, Weight change, Medical course
--- NOTE | 2018-03-26 17:12 | GIPROC ---
[facility] [address] [place] [address], [id number] EGD PROCEDURE REPORT EXAM DATE: 03/26/2018 PATIENT NAME: Jeremiah May MR #: [id number] BIRTHDATE: 1940 ATTENDING: aDvid Sánchez MD ORDER #: [id number] MEDICAL DATA ENTRY CLERK: Lisa Bangura and Joi Salas STATUS: inpatient INDICATIONS: The patient is a 78 yr old male here for an EGD due to Bloody aspirates/NG tube and acute post hemorrhagic anemia PROCEDURE PERFORMED: EGD, diagnostic MEDICATIONS: None and Per Anesthesia. TOPICAL ANESTHETIC: none CONSENT: The patient understands the risks and benefits of the procedure and understands that these risks include, but are not limited to: sedation, allergic reaction, infection, perforation and/or bleeding. Alternative means of evaluation and treatment include, among others: physical exam, x-rays, and/or surgical intervention. The patient elects to proceed with this endoscopic procedure. medical equipment was checked for proper function. Hand hygiene and appropriate measures for infection prevention was taken. After the risks, benefits and alternatives of the procedure were thoroughly explained, Informed consent was verified, confirmed and timeout was successfully executed by the treatment team. The patient was anesthetized with topical anesthesia and the Pentax EG-[id number] endoscope was introduced through the mouth and advanced to the second portion of the duodenum. Retroflexed views revealed a hiatal hernia The gastroscope was then slowly withdrawn and removed. ESOPHAGUS: There was LA Class C esophagitis noted. STOMACH: The mucosa of the stomach appeared normal. DUODENUM: The duodenal mucosa appeared normal in the entire duodenum. No active bleeding or SRH. ADVERSE EVENTS: There were no complications. IMPRESSIONS: 1. There was LA Class C esophagitis noted 2. The mucosa of the stomach appeared normal 3. Normal duodenal mucosa in the entire duodenum 4. No active bleeding or SRH 5. Retroflexed views revealed a hiatal hernia RECOMMENDATIONS: Continue PPI PATIENT CONDITION: stable DISPOSITION: Inpatient REPEAT EXAM: Return as needed for EGD David Sánchez MD eSigned: David Sánchez MD 03/26/2018 5:11 PM cc: PATIENT NAME: Jeremiah May MR#: [id number]
[2018-03-26 17:54] LABS: ABG Base Excess 6.3 mmol/L (-2-2); ABG PCO2 72 mmHg (38-42); ABG PO2 97 mmHg (61-120)
[2018-03-27] MEDS: LORazepam 0.5 MG Tablet PO SCH ×5 (00:27→23:17)
[2018-03-27] MEDS: Propofol 1000 mg/100 ml Inj 1,000 MG/100 ML BOTTLE IV.CONT PRN ×4 (00:27→20:05)
[2018-03-27] MEDS: Pantoprazole Inj 40 MG Vial IV.PUSH SCH ×3 (00:28→23:17)
[2018-03-27] MEDS: Oral Hygiene Kit OROPHARYNG SCH ×5 (00:28→23:17)
[2018-03-27] MEDS: Piperacil/Tazo 4.5 GM Premix 4.5 GM/100 ML BAG IV.SIG SCH ×4 (02:36→21:10)
[2018-03-27] MEDS: Chlorhexidine Gluconate 2% 1 Pack (2 Cloths) TOPICAL SCH (04:00)
[2018-03-27] MEDS: MethylPREDNISolone Sod Succinate Inj 40 MG/ML Vial IV.PUSH SCH ×3 (05:07→21:11)
[2018-03-27 05:21] LABS: Hematocrit 32.9 % (39.0-51.0); Hemoglobin 10.9 gm/dL (13.0-17.0); Mean Corpuscular Hemoglobin 30.3 pg (27.0-34.0); Mean Corpuscular Volume 91.8 fL (80.0-100.0); Mean Platelet Volume 7.9 fL (7.0-11.0); Platelet Count 297 th/mm3 (150-450); Red Blood Count 3.58 mil/mm3 (4.50-5.90); Red Cell Distribution Width 13.9 % (11.6-17.2); White Blood Count 8.3 th/mm3 (4.0-11.0)
[2018-03-27 05:25] LABS: Chloride 105 meq/L (98-107); Potassium 3.9 meq/L (3.5-5.1); Sodium 144 meq/L (136-145)
[2018-03-27 05:29] LABS: Albumin 1.9 g/dL (3.4-5.0); Anion Gap 5 meq/L (5-15); Blood Urea Nitrogen 28 mg/dL (7-18); Carbon Dioxide 33.6 meq/L (21.0-32.0); Glucose,Random 129 mg/dL (74-106); Magnesium 2.2 mg/dL (1.5-2.5)
[2018-03-27 05:32] LABS: Alanine Aminotransferase 26 U/L (12-78); Aspartate Aminotransferase 13 U/L (15-37); Glomerular Filtration Rate Greater Than 89 mL/min (>89)
[2018-03-27 05:34] LABS: Total Protein 5.6 g/dL (6.4-8.2)
[2018-03-27 05:35] LABS: Alkaline Phosphatase 77 U/L (45-117)
--- NOTE | 2018-03-27 06:17 | XR ---
EXAM DATE: 03/27/2018 6:09 AM EST AGE/SEX: 78 years / Male INDICATIONS: Short of breath. CLINICAL DATA: This is the patient's subsequent encounter. Patient reports that signs and symptoms h ave been present for 4 - 6 days and indicates a pain score of 0/10. MEDICAL/SURGICAL HISTORY: . Carcinoma, lung. COPD. Asthma. Arthritis. Diverticulitis. None. COMPARISON: [facility], CHEST 1V SINGLE AP, 03/26/2018. . FINDINGS: A single AP view of the chest demonstrates hyperinflation with bullous changes in the right apex. No consolidation or infiltrate. Heart normal in size. Endotracheal tube and nasogastric tube unchanged. The cardiomediastinal contours are unremarkable. Osseous structures are intact. CONCLUSION: No evidence for infiltrate Electronically signed by: Lucho Link MD Board Certified Radiologist 03/27/2018 6:15 AM EST
--- NOTE | 2018-03-27 06:59 | P.PNCC ---
Subjective Subjective Remarks/Hospital Course: Patient is 78-year-old male with history of COPD, history of lung cancer status post chemotherapy and radiation, chronic sinusitis who was brought to emergency room for severe dyspnea. EMS was called by his roommates as the patient was severely short of breath and EMS intubated him. His fever 103 in the ER, blood pressure was borderline systolic in the 80s. Patient received 2 L normal saline IV fluid boluses in the ED. chest x-ray showed bilateral infiltrates. Received Levaquin and vancomycin after blood cultures were drawn. Critical care medicine was consulted for admission to ICU. I have requested additional 1 L fluid bolus. I have also started the patient on IV Solu-Medrol 125 mg IV x1 and 40 mg every 8. Change antibiotics to Zosyn and Levaquin. Send sputum culture check influenza. I evaluate the patient in the [facility] ICU. He is critically ill intubated sedated. I discussed with Both daughters. Patient has a history of lung cancer underwent chemo and radiation [address] scan done 9 months ago was negative for recurrence. However patient was not following up, he wanted no further treatment for lung cancer in case of recurrence. He also continues to smoke. I have updated the family and indicated that he is critically ill. They want to continue aggressive care at this time and reevaluate in 48-72 hours if there is no improvement. His troponin was noted to be 0.5 to most likely demand ischemia, started aspirin daily 03/25: Remains intubated sedated, hypotensive currently on Levophed at 2 mcg/ min. Thick yellow secretions persist. CT of the chest yesterday did not shows any pneumonia but showed multiple nodules concerning for recurrence of lung cancer. Patient previously had decided he does not want any further treatment for lung cancer recurrence if it happens. 03/26: Failed CPAP trials yesterday due to anxiety and dyspnea. Currently sedated with propofol and Precedex. Continue to have bloody output from NG tube. EGD per GI today. Continue IV Protonix. CBC today pending. Remains on 1 mcg/min of Levophed 03/27: Remains intubated sedated for vent synchrony. Failed CPAP trial yesterday when pressure support reduced to 5. EGD official report is pending at this time. Currently off Levophed right femoral central line removed Objective Vital Signs / I&O: Vital Signs 03/26/18 07:00 03/26/18 07:30 03/26/18 07:45 Temperature 97.8 F Pulse Rate 54 L 65 Respiratory Rate 19 50 H 22 Blood Pressure 120/59 L Pulse Oximetry 98 98 03/26/18 08:00 03/26/18 09:00 03/26/18 10:00 Temperature Pulse Rate 70 54 L 62 Respiratory Rate 18 19 18 Blood Pressure 124/66 127/61 127/74 Pulse Oximetry 98 98 98 03/26/18 11:00 03/26/18 11:19 03/26/18 11:25 Temperature Pulse Rate 52 L 52 L Respiratory Rate 15 14 12 Blood Pressure 119/72 Pulse Oximetry 97 97 03/26/18 12:00 03/26/18 13:42 03/26/18 15:50 Temperature 97.6 F Pulse Rate 82 Respiratory Rate 16 16 18 Blood Pressure 104/65 Pulse Oximetry 96 97 99 03/26/18 16:08 03/26/18 16:09 03/26/18 16:11 Temperature Pulse Rate 50 L 50 L 48 L Respiratory Rate 16 16 16 Blood Pressure 118/65 105/64 105/64 Pulse Oximetry 98 100 100 03/26/18 16:26 03/26/18 16:31 03/26/18 16:36 Temperature Pulse Rate 46 L 46 L 44 L Respiratory Rate 15 15 15 Blood Pressure 101/63 122/61 118/63 Pulse Oximetry 98 98 98 03/26/18 16:51 03/26/18 17:00 03/26/18 17:06 Temperature Pulse Rate 42 L 62 50 L Respiratory Rate 16 20 16 Blood Pressure 119/76 128/71 113/66 Pulse Oximetry 98 97 97 03/26/18 17:11 03/26/18 17:16 03/26/18 17:17 Temperature Pulse Rate 64 60 Respiratory Rate 20 23 23 Blood Pressure 129/74 112/66 Pulse Oximetry 97 95 97 03/26/18 17:21 03/26/18 17:26 03/26/18 17:31 Temperature Pulse Rate 66 60 62 Respiratory Rate 25 H 18 19 Blood Pressure 119/75 119/65 110/65 Pulse Oximetry 96 95 96 03/26/18 17:36 03/26/18 17:41 03/26/18 17:51 Temperature Pulse Rate 60 60 74 Respiratory Rate 16 19 32 H Blood Pressure 103/62 105/61 95/67 L Pulse Oximetry 95 96 95 03/26/18 18:00 03/26/18 18:04 03/26/18 19:00 Temperature Pulse Rate 70 44 L Respiratory Rate 27 H 22 0 L Blood Pressure 94/60 L 101/56 L Pulse Oximetry 96 97 98 03/26/18 19:20 03/26/18 20:00 03/26/18 21:00 Temperature 97.8 F Pulse Rate 58 L 50 L 64 Respiratory Rate 16 15 23 Blood Pressure 132/70 137/89 Pulse Oximetry 97 98 97 03/26/18 22:00 03/26/18 22:30 03/26/18 23:00 Temperature Pulse Rate 50 L 52 L Respiratory Rate 16 16 16 Blood Pressure 122/68 142/72 H Pulse Oximetry 99 98 98 03/26/18 23:05 03/27/18 00:00 03/27/18 01:00 Temperature 98.9 F Pulse Rate 51 L 52 L 64 Respiratory Rate 16 16 16 Blood Pressure 132/87 105/64 Pulse Oximetry 97 98 03/27/18 01:20 03/27/18 02:00 03/27/18 03:00 Temperature Pulse Rate 66 70 Respiratory Rate 17 20 25 H Blood Pressure 105/67 101/60 Pulse Oximetry 97 99 97 03/27/18 03:18 03/27/18 04:00 03/27/18 04:10 Temperature 98.6 F Pulse Rate 67 70 Respiratory Rate 18 16 16 Blood Pressure 104/64 Pulse Oximetry 97 96 03/27/18 05:00 03/27/18 06:00 Temperature Pulse Rate 62 54 L Respiratory Rate 21 16 Blood Pressure 101/60 102/64 Pulse Oximetry 95 97 Intake & Output 03/26/18 03/26/18 03/27/18 06:59 18:59 06:59 Intake Total 1760 / 1760 1018 / 1018 548 / 548 Output Total 580 / 580 1425 / 1425 505 / 505 Balance 1180 / 1180 -407 / -407 43 / 43 Weight 77.8 kg 76.5 kg Intake: IV 1700 / 1700 898 / 898 548 / 548 Precedex Inj 200 MCG In NS Inj 50 / 50 98 / 98 48 / 48 48 ML @ 0.2 MCG/KG/HR 3.82 mls/ hr IV.CONT TITRATE PRN Rx#: [id number] Diprivan 1000 mg/100 ml Inj 1, 200 / 200 200 / 200 300 / 300 000 mg In 100 ml @ 5 MCG/KG/MIN 2.381 mls/hr IV.CONT TITRATE PRN Rx#:[id number] NS Inj 1,000 ML @ 84 mls/hr IV. 1000 / 1000 CONT .[id number] [facility] Rx#: [id number] Levophed-Dextrose 4 mg/250 ml 250 / 250 Drip 4 mg In 250 ml @ 2 MCG/MIN 7.5 mls/hr IV.SIG TITRATE PRN Rx#:[id number] Zosyn 4.5 GM Premix 4.5 gm In 200 / 200 200 / 200 200 / 200 100 ml @ 200 mls/hr IV.SIG Q6H [facility] Rx#:[id number] Tube Irrigant 60 / 60 120 / 120 Output: Urine 125 / 125 75 / 75 Urine Amount (Catheter) 355 / 355 1425 / 1425 430 / 430 Indwelling Urethral Catheter 355 / 355 1425 / 1425 430 / 430 Gastric Drainage 100 / 100 Right Nare Nasogastric Tube 100 / 100 Result Diagrams: 03/27/18 04:40 03/27/18 04:40 Objective Remarks: GENERAL: Patient is a 78-year-old male in intubated sedated currently requiring propofol and Precedex for sedation SKIN: warm/dry. HEAD: Atraumatic. Normocephalic. EYES: Pupils equal and round. No scleral icterus. No injection or drainage. ENT: No nasal bleeding or discharge. Oral tracheal intubation. Thick yellow secretions NECK: Trachea midline. No JVD. CARDIOVASCULAR: Regular rate and rhythm. No murmur appreciated. RESPIRATORY: Intubated, bilateral rhonchi and expiratory wheezes improved GASTROINTESTINAL: Abdomen soft, non-tender, nondistended. Hepatic and splenic margins not palpable. NG tube with tube feeds MUSCULOSKELETAL: No obvious deformities. No clubbing. No cyanosis. No edema. NEUROLOGICAL: Intubated sedated. On lightening sedation moves all 4 extremities follows commands. Assessment and Plan - Problem List (1) Acute hypercapnic respiratory failure Code(s): J96.02 - Acute respiratory failure with hypercapnia Status: Acute (2) Severe sepsis Code(s): A41.9 - Sepsis, unspecified organism; R65.20 - Severe sepsis without septic shock Status: Acute (3) Hypotension Code(s): I95.9 - Hypotension, unspecified Status: Acute (4) Bilateral pneumonia Code(s): J18.9 - Pneumonia, unspecified organism Status: Acute (5) Elevated troponin Code(s): R74.8 - Abnormal levels of other serum enzymes Status: Acute (6) History of COPD Code(s): Z87.09 - Personal history of other diseases of the respiratory system Status: Chronic (7) History of lung cancer Code(s): Z85.118 - Personal history of other malignant neoplasm of bronchus and lung Status: Chronic - Assessment and Plan Plan: NEURO: -Propofol and Precedex for sedation and ventilator synchrony -Ativan 0.5 mg p.o. every 6 hours -Daily sedation vacation RESP: Acute hypercapnic respiratory failure Acute COPD exacerbation Pneumonia Multiple lung nodules concerning for metastatic cancer on CT History of lung cancer 2 years ago -PRVC/AC. Rate 16 TV 600. Daily spontaneous breathing trials. Failed yesterday due to tachypnea and hypercapnia -Ventilator bundle. DuoNeb every 4 hours scheduled and as needed -Broad-spectrum antibiotics with Zosyn. Changed to Rocephin today for Haemophilus -CT of the chest multiple lung nodules concerning for metastatic cancer CV: Elevated troponin-likely demand ischemia Hypotension-resolved -Off all IV fluids. Received 20 mg Lasix yesterday -Troponin elevation secondary to demand ischemia, remains stable no indication for cardiology consult at this time -Aspirin 81 mg daily GI: Upper GI bleed -Started on tube feeds yesterday, IV Protonix 40 mg every 12 -EGD done, official report pending : Acute kidney insufficiency -Monitor renal function closely. Lezama catheter for hourly intake output -IV Lasix as above ID: Bilateral pneumonia-Haemophilus in sputum Severe Sepsis -Antibiotics Zosyn and discontinued Levaquin 03/26. 1 dose of vancomycin given in the ED. DC Zosyn start Rocephin -sputum culture growing Haemophilus -Follow-up blood urine and sputum cultures. Sputum culture Haemophilus HEME: History of lung CA -Monitor CBC, coags -History of lung cancer status post chemoradiation 2 years ago -Patient did not want any further treatment or workup for lung cancer ENDO: -Electrolyte replacement per protocol -Sliding scale insulin if needed PROPH: -Bilateral lower extremity SCDs. Resume Lovenox, continue IV Protonix 40 every 12 LINES: -Utilize peripheral IVs, right femoral central line in place by ER physician- discontinued 03/26/18 CC time 35 min
[2018-03-27 08:51] LABS: ABG Base Excess 8.1 mmol/L (-2-2); ABG PCO2 61 mmHg (38-42); ABG PO2 96 mmHg (61-120)
[2018-03-27] MEDS: Senna/Docusate Sodium 8.6/50 MG Tablet PO SCH ×2 (10:01→21:10)
[2018-03-27] MEDS: Chlorhexidine 0.12% Oral Kit 15 ML UDC OROPHARYNG SCH ×2 (10:02→21:09)
[2018-03-27] MEDS: Dexmedetomidine Inj 200 MCG in Sodium Chlor 0.9% Inj 48 ML IV.CONT PRN ×2 (12:52→18:40)
[2018-03-28] MEDS: Propofol 1000 mg/100 ml Inj 1,000 MG/100 ML BOTTLE IV.CONT PRN ×2 (00:46→07:14)
[2018-03-28] MEDS: Dexmedetomidine Inj 200 MCG in Sodium Chlor 0.9% Inj 48 ML IV.CONT PRN (00:47)
[2018-03-28] MEDS: Piperacil/Tazo 4.5 GM Premix 4.5 GM/100 ML BAG IV.SIG SCH ×4 (03:03→21:13)
[2018-03-28] MEDS: Chlorhexidine Gluconate 2% 1 Pack (2 Cloths) TOPICAL SCH (03:04)
[2018-03-28] MEDS: Oral Hygiene Kit OROPHARYNG SCH ×3 (03:05→18:41)
[2018-03-28] MEDS: MethylPREDNISolone Sod Succinate Inj 40 MG/ML Vial IV.PUSH SCH ×3 (05:25→21:00)
[2018-03-28] MEDS: LORazepam 0.5 MG Tablet PO SCH ×3 (05:25→18:45)
--- NOTE | 2018-03-28 06:36 | P.PNCC ---
Subjective Subjective Remarks/Hospital Course: Patient is 78-year-old male with history of COPD, history of lung cancer status post chemotherapy and radiation, chronic sinusitis who was brought to emergency room for severe dyspnea. EMS was called by his roommates as the patient was severely short of breath and EMS intubated him. His fever 103 in the ER, blood pressure was borderline systolic in the 80s. Patient received 2 L normal saline IV fluid boluses in the ED. chest x-ray showed bilateral infiltrates. Received Levaquin and vancomycin after blood cultures were drawn. Critical care medicine was consulted for admission to ICU. I have requested additional 1 L fluid bolus. I have also started the patient on IV Solu-Medrol 125 mg IV x1 and 40 mg every 8. Change antibiotics to Zosyn and Levaquin. Send sputum culture check influenza. I evaluate the patient in the [facility] ICU. He is critically ill intubated sedated. I discussed with Both daughters. Patient has a history of lung cancer underwent chemo and radiation [address] scan done 9 months ago was negative for recurrence. However patient was not following up, he wanted no further treatment for lung cancer in case of recurrence. He also continues to smoke. I have updated the family and indicated that he is critically ill. They want to continue aggressive care at this time and reevaluate in 48-72 hours if there is no improvement. His troponin was noted to be 0.5 to most likely demand ischemia, started aspirin daily 03/25: Remains intubated sedated, hypotensive currently on Levophed at 2 mcg/ min. Thick yellow secretions persist. CT of the chest yesterday did not shows any pneumonia but showed multiple nodules concerning for recurrence of lung cancer. Patient previously had decided he does not want any further treatment for lung cancer recurrence if it happens. 03/26: Failed CPAP trials yesterday due to anxiety and dyspnea. Currently sedated with propofol and Precedex. Continue to have bloody output from NG tube. EGD per GI today. Continue IV Protonix. CBC today pending. Remains on 1 mcg/min of Levophed 03/27: Remains intubated sedated for vent synchrony. Failed CPAP trial yesterday when pressure support reduced to 5. EGD official report is pending at this time. Currently off Levophed right femoral central line removed. 03/28: Afebrile. The patient remains lightly sedated, awake most of the night RASS-1. The patient failed CPAP trials again yesterday at settings 10/5. Repeat CPAP trials this a.m. Objective Vital Signs / I&O: Vital Signs 03/27/18 07:00 03/27/18 07:28 03/27/18 07:30 Temperature Pulse Rate 66 66 66 Respiratory Rate 24 25 H 24 Blood Pressure 101/67 106/62 Pulse Oximetry 97 96 96 03/27/18 08:00 03/27/18 09:00 03/27/18 09:58 Temperature 98.6 F Pulse Rate 82 90 93 H Respiratory Rate 23 29 H Blood Pressure 110/58 L 119/64 Pulse Oximetry 96 95 03/27/18 10:00 03/27/18 10:19 03/27/18 11:00 Temperature Pulse Rate 90 64 Respiratory Rate 22 21 16 Blood Pressure 110/52 L 93/53 L Pulse Oximetry 94 L 93 L 94 L 03/27/18 11:28 03/27/18 12:00 03/27/18 13:00 Temperature Pulse Rate 56 L 56 L 54 L Respiratory Rate 16 15 16 Blood Pressure 100/59 L 107/65 Pulse Oximetry 94 L 96 03/27/18 14:00 03/27/18 15:00 03/27/18 15:09 Temperature 98.5 F Pulse Rate 54 L 52 L 52 L Respiratory Rate 16 16 16 Blood Pressure 92/57 L 103/61 Pulse Oximetry 95 96 03/27/18 15:34 03/27/18 15:58 03/27/18 16:00 Temperature Pulse Rate 54 L 52 L Respiratory Rate 16 16 Blood Pressure 94/52 L Pulse Oximetry 96 96 03/27/18 17:00 03/27/18 18:00 03/27/18 19:00 Temperature 97.6 F Pulse Rate 53 L 54 L 52 L Respiratory Rate 15 12 15 Blood Pressure 106/55 L 104/61 89/58 L Pulse Oximetry 97 96 96 03/27/18 19:30 03/27/18 20:00 03/27/18 21:00 Temperature 97.7 F 97.6 F Pulse Rate 51 L 73 52 L Respiratory Rate 16 19 1 L Blood Pressure 153/72 H 89/58 L Pulse Oximetry 96 96 96 03/27/18 22:00 03/27/18 22:40 03/27/18 23:00 Temperature Pulse Rate 82 71 Respiratory Rate 16 16 16 Blood Pressure 95/55 L 90/52 L Pulse Oximetry 98 96 98 03/28/18 00:00 03/28/18 01:00 03/28/18 01:30 Temperature 97 F L Pulse Rate 70 69 Respiratory Rate 16 16 18 Blood Pressure 102/53 L 102/56 L Pulse Oximetry 95 94 L 95 03/28/18 02:00 03/28/18 03:00 03/28/18 03:20 Temperature Pulse Rate 71 67 65 Respiratory Rate 16 16 Blood Pressure 99/59 L 85/66 L Pulse Oximetry 94 L 100 03/28/18 04:00 03/28/18 04:30 03/28/18 05:00 Temperature 97.3 F L Pulse Rate 60 68 Respiratory Rate 16 16 31 H Blood Pressure 82/53 L 90/51 L Pulse Oximetry 99 98 03/28/18 06:00 Temperature Pulse Rate 68 Respiratory Rate 16 Blood Pressure 90/51 L Pulse Oximetry 100 Intake & Output 03/27/18 03/27/18 03/28/18 06:59 18:59 06:59 Intake Total 548 / 548 460 / 460 350 / 350 Output Total 505 / 505 640 / 640 365 / 365 Balance 43 / 43 -180 / -180 -15 / -15 Weight 76.5 kg 78.9 kg Intake: IV 548 / 548 400 / 400 350 / 350 Precedex Inj 200 MCG In NS Inj 48 / 48 100 / 100 50 / 50 48 ML @ 0.2 MCG/KG/HR 3.82 mls/ hr IV.CONT TITRATE PRN Rx#: [id number] Diprivan 1000 mg/100 ml Inj 1, 300 / 300 100 / 100 200 / 200 000 mg In 100 ml @ 5 MCG/KG/MIN 2.381 mls/hr IV.CONT TITRATE PRN Rx#:[id number] Zosyn 4.5 GM Premix 4.5 gm In 200 / 200 200 / 200 100 / 100 100 ml @ 200 mls/hr IV.SIG Q6H PILLO Rx#:[id number] Oral 0 / 0 Tube Feeding 60 / 60 Output: Urine 75 / 75 Urine Amount (Catheter) 430 / 430 640 / 640 365 / 365 Indwelling Urethral Catheter 430 / 430 640 / 640 365 / 365 Other: # Bowel Movements 0 Result Diagrams: 03/27/18 04:40 03/27/18 04:40 Objective Remarks: GENERAL: Patient is a 78-year-old male in intubated sedated currently requiring propofol and Precedex for sedation SKIN: warm/dry. HEAD: Atraumatic. Normocephalic. EYES: Pupils equal and round. No scleral icterus. No injection or drainage. ENT: No nasal bleeding or discharge. Oral tracheal intubation. Thick yellow secretions NECK: Trachea midline. No JVD. CARDIOVASCULAR: Regular rate and rhythm. No murmur appreciated. RESPIRATORY: Intubated, bilateral rhonchi and expiratory wheezes we will noted GASTROINTESTINAL: Abdomen soft, non-tender, nondistended. Hepatic and splenic margins not palpable. NG tube with tube feeds MUSCULOSKELETAL: No obvious deformities. No clubbing. No cyanosis. No edema. NEUROLOGICAL: RASS -1. Intubated sedated. Moves all 4 extremities follows commands. Assessment and Plan - Problem List (1) Acute hypercapnic respiratory failure Code(s): J96.02 - Acute respiratory failure with hypercapnia Status: Acute (2) Severe sepsis Code(s): A41.9 - Sepsis, unspecified organism; R65.20 - Severe sepsis without septic shock Status: Acute (3) Hypotension Code(s): I95.9 - Hypotension, unspecified Status: Acute (4) Bilateral pneumonia Code(s): J18.9 - Pneumonia, unspecified organism Status: Acute (5) Elevated troponin Code(s): R74.8 - Abnormal levels of other serum enzymes Status: Acute (6) History of COPD Code(s): Z87.09 - Personal history of other diseases of the respiratory system Status: Chronic (7) History of lung cancer Code(s): Z85.118 - Personal history of other malignant neoplasm of bronchus and lung Status: Chronic - Assessment and Plan Plan: NEURO: -Propofol and Precedex for sedation and ventilator synchrony -Ativan 0.5 mg p.o. every 6 hours -Daily sedation vacation -Currently RASS-1 RESP: Acute hypercapnic respiratory failure Acute COPD exacerbation Pneumonia Multiple lung nodules concerning for metastatic cancer on CT History of lung cancer 2 years ago -PRVC/AC. Rate 16 TV 600. Daily spontaneous breathing trials. Failed 03/27 due to tachypnea and hypercapnia -Ventilator bundle. DuoNeb every 4 hours scheduled and as needed -Broad-spectrum antibiotics with Zosyn. Changed to Rocephin today for Haemophilus -CT of the chest multiple lung nodules concerning for metastatic cancer CV: Elevated troponin-likely demand ischemia Hypotension-resolved -Off all IV fluids. Received 20 mg Lasix yesterday -Troponin elevation secondary to demand ischemia, remains stable no indication for cardiology consult at this time -Aspirin 81 mg daily GI: Upper GI bleed -Started on tube feeds yesterday, IV Protonix 40 mg every 12 -EGD done, official report pending : Acute kidney insufficiency -Monitor renal function closely. Lezama catheter for hourly intake output -IV Lasix as above ID: Bilateral pneumonia-Haemophilus in sputum Severe Sepsis -Antibiotics Zosyn and discontinued Levaquin 03/26. 1 dose of vancomycin given in the ED. DC Zosyn start Rocephin -sputum culture - Haemophilus -Follow-up blood urine and sputum cultures. Sputum culture Haemophilus HEME: History of lung CA -Monitor CBC, coags -History of lung cancer status post chemoradiation 2 years ago -Patient did not want any further treatment or workup for lung cancer ENDO: -Electrolyte replacement per protocol -Sliding scale insulin if needed PROPH: -Bilateral lower extremity SCDs. Resume Lovenox, continue IV Protonix 40 every 12 LINES: -Utilize peripheral IVs, right femoral central line in place by ER physician- discontinued 03/26/18 Level 3 follow-up Code Status: Alternate Code Discussed Condition With: No family at bedside Case discussed with [employer] at bedside.
[2018-03-28] MEDS: Chlorhexidine 0.12% Oral Kit 15 ML UDC OROPHARYNG SCH ×2 (10:25→21:12)
[2018-03-28] MEDS: Senna/Docusate Sodium 8.6/50 MG Tablet PO SCH ×2 (10:26→21:12)
[2018-03-28 11:07] LABS: ABG Base Excess 10.9 mmol/L (-2-2); ABG PCO2 56 mmHg (38-42); ABG PO2 86 mmHg (61-120)
--- NOTE | 2018-03-28 12:35 | P.PN ---
Subjective Interval history: 03/28: Contacted by ICU nurse. Patient tolerating CPAP trials for greater than 4 hours patient 5/5/FiO2 40%. RSBI 31, TV 560,RR 18, VC 1.07, NIF -32 I contacted Molly Murphy [phone], to provide a medical status update and inform her that the patient met the parameters for possible removal of endotracheal tube . Due to his alternate CODE STATUS clarification that the patient will not be reintubated if respiratory deterioration occurs peer family stated they wanted palliative care to come and discuss with the patient the ramifications of removal of the endotracheal tube with no replacement. Plan for palliative care to come and discussed with patient now that he is off all sedation and alert the decision to extubate without plans for reintubation if respiratory deterioration occurred, to ensure these concur with his wishes. Physical Exam Vital signs: Vital Signs 03/27/18 13:00 03/27/18 14:00 03/27/18 15:00 Temperature 98.5 F Pulse Rate 54 L 54 L 52 L Respiratory Rate 16 16 16 Blood Pressure 107/65 92/57 L 103/61 Pulse Oximetry 96 95 96 03/27/18 15:09 03/27/18 15:34 03/27/18 15:58 Temperature Pulse Rate 52 L 54 L Respiratory Rate 16 16 Blood Pressure Pulse Oximetry 96 03/27/18 16:00 03/27/18 17:00 03/27/18 18:00 Temperature Pulse Rate 52 L 53 L 54 L Respiratory Rate 16 15 12 Blood Pressure 94/52 L 106/55 L 104/61 Pulse Oximetry 96 97 96 03/27/18 19:00 03/27/18 19:30 03/27/18 20:00 Temperature 97.6 F 97.7 F Pulse Rate 52 L 51 L 73 Respiratory Rate 15 16 19 Blood Pressure 89/58 L 153/72 H Pulse Oximetry 96 96 96 03/27/18 21:00 03/27/18 22:00 03/27/18 22:40 Temperature 97.6 F Pulse Rate 52 L 82 Respiratory Rate 1 L 16 16 Blood Pressure 89/58 L 95/55 L Pulse Oximetry 96 98 96 03/27/18 23:00 03/28/18 00:00 03/28/18 01:00 Temperature 97 F L Pulse Rate 71 70 69 Respiratory Rate 16 16 16 Blood Pressure 90/52 L 102/53 L 102/56 L Pulse Oximetry 98 95 94 L 03/28/18 01:30 03/28/18 02:00 03/28/18 03:00 Temperature Pulse Rate 71 67 Respiratory Rate 18 16 Blood Pressure 99/59 L 85/66 L Pulse Oximetry 95 94 L 100 03/28/18 03:20 03/28/18 04:00 03/28/18 04:30 Temperature 97.3 F L Pulse Rate 65 60 Respiratory Rate 16 16 16 Blood Pressure 82/53 L Pulse Oximetry 99 03/28/18 05:00 03/28/18 06:00 03/28/18 07:00 Temperature 99.4 F Pulse Rate 68 68 80 Respiratory Rate 31 H 16 32 H Blood Pressure 90/51 L 90/51 L 101/52 L Pulse Oximetry 98 100 99 03/28/18 07:23 03/28/18 07:32 03/28/18 08:00 Temperature 99.4 F Pulse Rate 82 86 Respiratory Rate 22 22 26 H Blood Pressure 116/58 L Pulse Oximetry 100 03/28/18 08:26 03/28/18 09:00 03/28/18 10:00 Temperature Pulse Rate 86 88 Respiratory Rate 18 18 24 Blood Pressure 119/53 L 107/58 L Pulse Oximetry 99 99 99 03/28/18 10:11 03/28/18 11:00 03/28/18 12:20 Temperature Pulse Rate 84 87 Respiratory Rate 17 24 16 Blood Pressure 100/66 Pulse Oximetry 99 99 Intake & Output 03/27/18 03/28/18 03/28/18 18:59 06:59 18:59 Intake Total 460 / 460 545 / 545 0 / 0 Output Total 640 / 640 365 / 365 175 / 175 Balance -180 / -180 180 / 180 -175 / -175 Weight 78.9 kg Intake: IV 400 / 400 545 / 545 Precedex Inj 200 MCG In NS Inj 100 / 100 50 / 50 48 ML @ 0.2 MCG/KG/HR 3.82 mls/ hr IV.CONT TITRATE PRN Rx#: [id number] Diprivan 1000 mg/100 ml Inj 1, 100 / 100 295 / 295 000 mg In 100 ml @ 5 MCG/KG/MIN 2.381 mls/hr IV.CONT TITRATE PRN Rx#:[id number] Zosyn 4.5 GM Premix 4.5 gm In 200 / 200 200 / 200 100 ml @ 200 mls/hr IV.SIG Q6H PILLO Rx#:[id number] Oral 0 / 0 0 / 0 Tube Feeding 60 / 60 Output: Urine 175 / 175 Urine Amount (Catheter) 640 / 640 365 / 365 Indwelling Urethral Catheter 640 / 640 365 / 365 Other: # Bowel Movements 0 - Urinary Catheter Management Indwelling Urethral Catheter Cath placed during this visit: yes Reason for continuing: Hourly intake/output Insertion date: 03/24/18 Insertion time: 06:20 Results - Labs CBC & Chem 7: 03/27/18 04:40 03/27/18 04:40 Laboratory Results - last 24 hr 03/28/18 03/28/18 02:55 10:54 APTT 27.5 Puncture Site Left radial Patient Temperature 98.6 O2 Saturation 96 ABG pH 7.42 ABG pCO2 56 H* ABG pO2 86 ABG HCO3 36 H ABG O2 Content 15.6 ABG Base Excess 10.9 H ABG Methemoglobin 0.8 John Test Present Hemoglobin 11.6 L Carboxyhemoglobin 0.9 O2 Delivery Device Ventilator Vent Setting Cpap 5 ps 5 peep Inspired O2 40 Critical Value Yes Microbiology 03/24/18 06:25 Blood - Peripheral Aerobic Blood Culture - Preliminary No growth in 4 days 03/24/18 06:25 Blood - Peripheral Anaerobic Blood Culture - Preliminary No growth in 4 days 03/24/18 06:15 Blood - Peripheral Aerobic Blood Culture - Preliminary No growth in 4 days 03/24/18 06:15 Blood - Peripheral Anaerobic Blood Culture - Preliminary No growth in 4 days 03/24/18 10:45 Sputum - Endotracheal Gram Stain - Final 03/24/18 10:45 Sputum - Endotracheal Sputum Culture - Final Haemophilus influenzae Assessment and Plan - Assessment (1) Acute hypercapnic respiratory failure Code(s): J96.02 - Acute respiratory failure with hypercapnia Status: Acute (2) Severe sepsis Code(s): A41.9 - Sepsis, unspecified organism; R65.20 - Severe sepsis without septic shock Status: Acute (3) Hypotension Code(s): I95.9 - Hypotension, unspecified Status: Acute (4) Bilateral pneumonia Code(s): J18.9 - Pneumonia, unspecified organism Status: Acute (5) Elevated troponin Code(s): R74.8 - Abnormal levels of other serum enzymes Status: Acute (6) History of COPD Code(s): Z87.09 - Personal history of other diseases of the respiratory system Status: Chronic (7) History of lung cancer Code(s): Z85.118 - Personal history of other malignant neoplasm of bronchus and lung Status: Chronic
[2018-03-28] MEDS: Pantoprazole Inj 40 MG Vial IV.PUSH SCH (13:30)
--- NOTE | 2018-03-28 13:34 | P.PNPAL ---
Reason for Visit Reason for visit: a. To assist with evaluation and management of symptoms including: Dyspnea, pain, anxiety b. To assist medical decision maker(s) with: better understanding of current medical conditions; weighing benefits/burdens of medical treatment options; making medical treatment decisions. Subjective Subjective/Interval History: Mr. Mehta is a 78-year-old male patient who presented [place] ED via EMS on 03/24/2018 with severe dyspnea. When EMS arrived at the home the patient and his family agreed to intubation due to severe dyspnea. CT chest on admission revealed bilateral nodular airspace opacities and hilar adenopathy concerning for neoplasm. Patient has a history of lung cancer status post chemotherapy and radiation [address] scan done 9 months ago was negative for recurrence. The patient has not been following up with his oncologist; he has told his family he would want no further treatment for lung cancer in case of recurrence. The family decided to give the patient a few days to improve in the hopes that he could be medically extubated and make his own decisions about his medical care. Follow-up chest x-ray on 03/27/2018 showed no evidence for infiltrate. Patient has been tolerating spontaneous breathing trials since early this morning; it may be possible to medically extubate the patient sometime today. Palliative care spoke to the patient's two daughters (Molly and Jolie) to discuss medical treatment goals, possible medical extubation later today. They both tell me the patient the patient has written advanced directives, and they do not believe he would want to be reintubated if he were to fail extubation. CODE STATUS changed to NO CODE-DNR/DNI. Molly tells me she is the designated healthcare surrogate, however no documents have been provided as of yet. Daughter, Jolie, confirms that Molly is the designated healthcare surrogate decision-maker. Patient is alert, able to follow commands. He is using pen and paper to communicate. Earlier today he communicated to his nurse that he only wants oxygen and Symbicort. In my conversations with the patient, he communicates that he does not want to be re-intubated if he fails medical extubation but would want to be made comfortable instead. He is amenable to BiPAP if necessary. Patient tells us that he wants to go home. Conversations were witnessed by nurseJudith. Family/Friend Interactions: See interval history Advance Directives Advance Directives Date on File: 12/31/17 Documented care wishes:: Patient completed a living will on December 31, 2017 which declares that, if at any time the patient is mentally and physically incapacitated and has a terminal condition, or an end-stage condition or is in a persistent vegetative state, he would not want the application of any procedures/interventions that would serve only to prolong artificially the process of his dying (I.e. cardiac resuscitation, mechanical respiration, blood/blood products, surgery/invasive diagnostic tests, to kidney dialysis, nutrition/hydration, pacemaker). Significant change in goals:: Possible medical extubation today. Patient will not be reintubated if he were to fail medical extubation. CODE STATUS will be changed to NO CODE-DNR/DNI. Objective Vital Signs: Vital Signs 03/27/18 14:00 03/27/18 15:00 03/27/18 15:09 Temperature 98.5 F Pulse Rate 54 L 52 L 52 L Respiratory Rate 16 16 16 Blood Pressure 92/57 L 103/61 Pulse Oximetry 95 96 03/27/18 15:34 03/27/18 15:58 03/27/18 16:00 Temperature Pulse Rate 54 L 52 L Respiratory Rate 16 16 Blood Pressure 94/52 L Pulse Oximetry 96 96 03/27/18 17:00 03/27/18 18:00 03/27/18 19:00 Temperature 97.6 F Pulse Rate 53 L 54 L 52 L Respiratory Rate 15 12 15 Blood Pressure 106/55 L 104/61 89/58 L Pulse Oximetry 97 96 96 03/27/18 19:30 03/27/18 20:00 03/27/18 21:00 Temperature 97.7 F 97.6 F Pulse Rate 51 L 73 52 L Respiratory Rate 16 19 1 L Blood Pressure 153/72 H 89/58 L Pulse Oximetry 96 96 96 03/27/18 22:00 03/27/18 22:40 03/27/18 23:00 Temperature Pulse Rate 82 71 Respiratory Rate 16 16 16 Blood Pressure 95/55 L 90/52 L Pulse Oximetry 98 96 98 03/28/18 00:00 03/28/18 01:00 03/28/18 01:30 Temperature 97 F L Pulse Rate 70 69 Respiratory Rate 16 16 18 Blood Pressure 102/53 L 102/56 L Pulse Oximetry 95 94 L 95 03/28/18 02:00 03/28/18 03:00 03/28/18 03:20 Temperature Pulse Rate 71 67 65 Respiratory Rate 16 16 Blood Pressure 99/59 L 85/66 L Pulse Oximetry 94 L 100 03/28/18 04:00 03/28/18 04:30 03/28/18 05:00 Temperature 97.3 F L Pulse Rate 60 68 Respiratory Rate 16 16 31 H Blood Pressure 82/53 L 90/51 L Pulse Oximetry 99 98 03/28/18 06:00 03/28/18 07:00 03/28/18 07:23 Temperature 99.4 F Pulse Rate 68 80 Respiratory Rate 16 32 H 22 Blood Pressure 90/51 L 101/52 L Pulse Oximetry 100 99 100 03/28/18 07:32 03/28/18 08:00 03/28/18 08:26 Temperature 99.4 F Pulse Rate 82 86 Respiratory Rate 22 26 H 18 Blood Pressure 116/58 L Pulse Oximetry 99 03/28/18 09:00 03/28/18 10:00 03/28/18 10:11 Temperature Pulse Rate 86 88 Respiratory Rate 18 24 17 Blood Pressure 119/53 L 107/58 L Pulse Oximetry 99 99 99 03/28/18 11:00 03/28/18 12:20 03/28/18 12:36 Temperature Pulse Rate 84 87 Respiratory Rate 24 16 16 Blood Pressure 100/66 Pulse Oximetry 99 99 Intake & Output 03/27/18 03/28/18 03/28/18 18:59 06:59 18:59 Intake Total 460 / 460 545 / 545 0 / 0 Output Total 640 / 640 365 / 365 220 / 220 Balance -180 / -180 180 / 180 -220 / -220 Weight 78.9 kg Intake: IV 400 / 400 545 / 545 Precedex Inj 200 MCG In NS Inj 100 / 100 50 / 50 48 ML @ 0.2 MCG/KG/HR 3.82 mls/ hr IV.CONT TITRATE PRN Rx#: [id number] Diprivan 1000 mg/100 ml Inj 1, 100 / 100 295 / 295 000 mg In 100 ml @ 5 MCG/KG/MIN 2.381 mls/hr IV.CONT TITRATE PRN Rx#:[id number] Zosyn 4.5 GM Premix 4.5 gm In 200 / 200 200 / 200 100 ml @ 200 mls/hr IV.SIG Q6H PILLO Rx#:[id number] Oral 0 / 0 0 / 0 Tube Feeding 60 / 60 0 / 0 Output: Urine 220 / 220 Urine Amount (Catheter) 640 / 640 365 / 365 0 / 0 Indwelling Urethral Catheter 640 / 640 365 / 365 0 / 0 Other: # Bowel Movements 0 Physical Exam: CONSTITUTIONAL/GENERAL: This is a frail, elderly male patient who is currently sedated and intubated on mechanical ventilation. TUBES/LINES/DRAINS: PIV x2, ETT, OGT, Lezama catheter, SCDs, soft restraints SKIN: No jaundice, rashes, or lesions. Ecchymoses on upper extremities. No wounds seen anteriorly. Skin temperature appropriate. Not diaphoretic. HEAD: Atraumatic. Normocephalic. EYES: Pupils equal and round and reactive. No scleral icterus. No injection or drainage. Fundi not examined. ENT: Nose without bleeding or purulent drainage. Oral mucous membranes moist NECK: Trachea midline. Supple, nontender. No palpable thyroid enlargement or nodularity. CARDIOVASCULAR: Regular rate and rhythm without murmurs, gallops, or rubs. No JVD. Peripheral pulses symmetric. RESPIRATORY/CHEST: Symmetric, unlabored respirations. Clear to auscultation. Breath sounds diminished bilaterally. No wheezes, rales, or rhonchi. GASTROINTESTINAL: Abdomen soft, non-tender, nondistended. No hepato-splenomegaly , or palpable masses. No guarding. Bowel sounds present. GENITOURINARY: Without palpable bladder distension. Lezama catheter in place. MUSCULOSKELETAL: Extremities without clubbing, cyanosis, or edema. No mottling or clubbing. LYMPHATICS: No palpable cervical or supraclavicular adenopathy. NEUROLOGICAL: Alert. Following commands. Communicating with pen and paper. PSYCHIATRIC: No apparent hallucinations or other psychotic thought process. Diagnostic Tests Laboratory: Laboratory Results - last 72 hr 03/26/18 03/26/18 03/27/18 06:45 16:49 04:40 WBC 10.5 8.3 RBC 3.67 L 3.58 L Hgb 10.9 L 10.9 L Hct 33.2 L 32.9 L MCV 90.6 91.8 MCH 29.9 30.3 MCHC 32.9 33.0 RDW 13.6 13.9 Plt Count 295 297 MPV 8.0 7.9 APTT Puncture Site Left radial Patient Temperature 98.6 O2 Saturation 96 ABG pH 7.28 L* ABG pCO2 72 H* ABG pO2 97 ABG HCO3 33 H ABG O2 Content 15.8 ABG Base Excess 6.3 H ABG Methemoglobin 0.7 John Test Present Hemoglobin 11.7 L Carboxyhemoglobin 0.6 O2 Delivery Device Vent Vent Setting Bipap [id number] Inspired O2 40 Critical Value Yes Sodium Potassium Chloride Carbon Dioxide Anion Gap BUN Creatinine Estimated GFR Random Glucose Calcium Magnesium Total Bilirubin AST ALT Alkaline Phosphatase Total Protein Albumin 03/27/18 03/27/18 03/28/18 04:40 09:40 02:55 WBC RBC Hgb Hct MCV MCH MCHC RDW Plt Count MPV APTT 27.5 Puncture Site Right radial Patient Temperature 98.6 O2 Saturation 96 ABG pH 7.36 L ABG pCO2 61 H* ABG pO2 96 ABG HCO3 34 H ABG O2 Content 21.7 H ABG Base Excess 8.1 H ABG Methemoglobin 0.7 John Test Present Hemoglobin 16.0 Carboxyhemoglobin 0.6 O2 Delivery Device Ventilator Vent Setting Cpap 5/ps8 Inspired O2 40 Critical Value Yes Sodium 144 Potassium 3.9 Chloride 105 Carbon Dioxide 33.6 H Anion Gap 5 BUN 28 H Creatinine 0.51 L Estimated GFR Greater than 89 Random Glucose 129 H Calcium 8.0 L Magnesium 2.2 Total Bilirubin 0.4 AST 13 L ALT 26 Alkaline Phosphatase 77 Total Protein 5.6 L Albumin 1.9 L 03/28/18 10:54 WBC RBC Hgb Hct MCV MCH MCHC RDW Plt Count MPV APTT Puncture Site Left radial Patient Temperature 98.6 O2 Saturation 96 ABG pH 7.42 ABG pCO2 56 H* ABG pO2 86 ABG HCO3 36 H ABG O2 Content 15.6 ABG Base Excess 10.9 H ABG Methemoglobin 0.8 John Test Present Hemoglobin 11.6 L Carboxyhemoglobin 0.9 O2 Delivery Device Ventilator Vent Setting Cpap 5 ps 5 peep Inspired O2 40 Critical Value Yes Sodium Potassium Chloride Carbon Dioxide Anion Gap BUN Creatinine Estimated GFR Random Glucose Calcium Magnesium Total Bilirubin AST ALT Alkaline Phosphatase Total Protein Albumin Result Diagrams: 03/27/18 04:40 03/27/18 04:40 Microbiology: Microbiology 03/24/18 06:25 Aerobic Blood Culture - Preliminary Blood - Peripheral No growth in 4 days Anaerobic Blood Culture - Preliminary No growth in 4 days 03/24/18 06:15 Aerobic Blood Culture - Preliminary Blood - Peripheral No growth in 4 days Anaerobic Blood Culture - Preliminary No growth in 4 days 03/24/18 10:45 Gram Stain - Final Sputum - Endotracheal Sputum Culture - Final Haemophilus influenzae 03/27/18 05:50 Influenza Types A,B Antigen - Final Nasal Wash Negative for FLU A and B antigen Infection due to influenza A or B cannot be ruled out since the antigen present in the sample may be below the detection limit of the test. 03/24/18 10:45 Urine Culture - Final Clean Catch Urine No growth in 48 hours Imaging: Chest CT 03/24/18 09:43 CONCLUSION: 1. Multiple bilateral nodular airspace opacities and hilar adenopathy concerning for neoplasm. There is an endotracheal tube identified within the trachea with a small amount of fluid seen within the trachea. Chest X-Ray 03/27/18 06:00 CONCLUSION: No evidence for infiltrate Procedures: 03/24/2018: Endotracheal intubation [employer] 03/24/2018: OGT placement 03/24/2018: Right femoral central line placement 03/26/2018: EGD 03/27/2018: Right femoral central line removed Assessment and Plan - Disease Oriented Problem List (1) Acute hypercapnic respiratory failure (2) Severe sepsis (3) Hypotension (4) History of COPD (5) History of lung cancer (6) Elevated troponin (7) Acute kidney insufficiency (8) Bilateral pneumonia - Symptom Scale (1) Dyspnea 0-10 Scale: Unable to quantify (2) Pain 0-10 Scale: Unable to quantify Pertinent Non-Medical Issues: Psychosocial: Patient is originally from [place]. 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 He is and lives alone. He has 2 adult daughters who live locally. Spiritual: Baptism emily Legal: Per [place] statutes, in the absence of written advanced directives healthcare proxy decision making would fall to his 2 adult daughters (Jolie and Molly). Molly tells me she is the designated healthcare surrogate, however no documents have been provided as of yet. Daughter, Jolie, confirms that Molly is the designated healthcare surrogate decision-maker. Ethical issues impacting care: No known ethical issues impacting care at this time. Important Contacts: Molly Murphy, daughter: [phone] Jolie Goncalves, daughter: [phone] Prognosis: Patient is a 78-year-old male with a known history of COPD and lung cancer status post chemotherapy and radiation times 2 years. Recent imaging consistent with pneumonia/recurrent lung cancer. Patient is currently intubated on mechanical ventilation. He becomes dyspneic with minimal exertion at baseline and has supplemental oxygen available in his home. In the event of recurrent lung cancer, patient has stated he would not pursue aggressive interventions. Given patient's advanced age, comorbid conditions and poor functional status, he is at risk for ongoing decline. Code Status: Full Code Plan: * NO CODE-DNR/DNI * Decision making: Per [place] statutes, in the absence of written advanced directives healthcare proxy decision making would fall to his 2 adult daughters (Jolie and Molly). Molly tells me she is the designated healthcare surrogate, however no documents have been provided as of yet. Daughter, Jolie, confirms that Molly is the designated healthcare surrogate decision-maker. * Patient completed a living will on December 31, 2017 which declares that, if at any time the patient is mentally and physically incapacitated and has a terminal condition, or an end-stage condition or is in a persistent vegetative state, he would not want the application of any procedures/interventions that would serve only to prolong artificially the process of his dying (I.e. cardiac resuscitation, mechanical respiration, blood/blood products, surgery/invasive diagnostic tests, to kidney dialysis, nutrition/hydration, pacemaker). * Discussed patient with Dr. Roman, bedside nurse (Judith) and RT (Roma) * Palliative care spoke to the patient's two daughters (Molly and Jolie) to discuss medical treatment goals, possible medical extubation later today. They both tell me the patient the patient has written advanced directives, and they do not believe he would want to be reintubated if he were to fail extubation. * Patient is alert, able to follow commands. He is using pen and paper to communicate. Earlier today he communicated to his nurse that he only wants oxygen and Symbicort. In my conversations with the patient, he communicates that he does not want to be re-intubated if he fails medical extubation but would want to be made comfortable instead. He is amenable to BiPAP if necessary. Patient tells us that he wants to go home. Conversations were witnessed by nurse, Judith. * Symptom management-dyspnea: Multifactoral. History of COPD, previous lung cancer status post chemotherapy and radiation. Patient has supplemental oxygen in the home that he is reluctant to use. Chest x-ray and CT of the lungs are concerning for pneumonia and recurrent lung cancer. Albuterol breathing treatments, Pulmicort and Solu-Medrol. Order duo nebs every 6 hours ATC while awake. Possible medical extubation. * Symptom managementpain: Multifactoral. Contributing factors include recent intubation in the field, invasive lines, pneumonia, UTI, possible recurrent lung cancer, immobility, bedbound status. Off sedation. Fentanyl and propofol infusions are available as needed. Ongoing monitoring for nonverbal signs and symptoms of pain are necessary. * Symptom management-anxiety: Multifactoral. Possible contributing factors include dyspnea, critical care hospitalization, intubation, invasive lines, immobility, inability to communicate, loss of control. Patient is off sedation ; remains intubated on mechanical ventilation; awaiting medical extubation. Lorazepam is ordered 0.5 mg PO q6 hours ATC. * Palliative care will continue to follow this patient throughout his hospitalization to establish trust, assist with symptom management and clarification of medical treatment goals.
--- NOTE | 2018-03-28 16:07 | P.PN ---
Subjective Interval history: 03/28: Question with Ms. Aniyah Irving, palliative care body team member family request if patient meets criteria for extubation plan for extubation with no reintubation. If respiratory requirements are increased patient may be advanced to BiPAP, DO NOT INTUBATE. I contacted . Molly Jeffrey, confirmed family and patient's request, which they were in agreement. SBT trial initiated TV 700, RR16, VC 1.07,NIF -31, RSBI 23, O2 saturation 98% on FiO2 of 40%. Plan for extubation to facemask, family informed. BiPAP ordered if needed. Physical Exam Vital signs: Vital Signs 03/27/18 17:00 03/27/18 18:00 03/27/18 19:00 Temperature 97.6 F Pulse Rate 53 L 54 L 52 L Respiratory Rate 15 12 15 Blood Pressure 106/55 L 104/61 89/58 L Pulse Oximetry 97 96 96 03/27/18 19:30 03/27/18 20:00 03/27/18 21:00 Temperature 97.7 F 97.6 F Pulse Rate 51 L 73 52 L Respiratory Rate 16 19 1 L Blood Pressure 153/72 H 89/58 L Pulse Oximetry 96 96 96 03/27/18 22:00 03/27/18 22:40 03/27/18 23:00 Temperature Pulse Rate 82 71 Respiratory Rate 16 16 16 Blood Pressure 95/55 L 90/52 L Pulse Oximetry 98 96 98 03/28/18 00:00 03/28/18 01:00 03/28/18 01:30 Temperature 97 F L Pulse Rate 70 69 Respiratory Rate 16 16 18 Blood Pressure 102/53 L 102/56 L Pulse Oximetry 95 94 L 95 03/28/18 02:00 03/28/18 03:00 03/28/18 03:20 Temperature Pulse Rate 71 67 65 Respiratory Rate 16 16 Blood Pressure 99/59 L 85/66 L Pulse Oximetry 94 L 100 03/28/18 04:00 03/28/18 04:30 03/28/18 05:00 Temperature 97.3 F L Pulse Rate 60 68 Respiratory Rate 16 16 31 H Blood Pressure 82/53 L 90/51 L Pulse Oximetry 99 98 03/28/18 06:00 03/28/18 07:00 03/28/18 07:23 Temperature 99.4 F Pulse Rate 68 80 Respiratory Rate 16 32 H 22 Blood Pressure 90/51 L 101/52 L Pulse Oximetry 100 99 100 03/28/18 07:32 03/28/18 08:00 03/28/18 08:26 Temperature 99.4 F Pulse Rate 82 86 Respiratory Rate 22 26 H 18 Blood Pressure 116/58 L Pulse Oximetry 99 03/28/18 09:00 03/28/18 10:00 03/28/18 10:11 Temperature Pulse Rate 86 88 Respiratory Rate 18 24 17 Blood Pressure 119/53 L 107/58 L Pulse Oximetry 99 99 99 03/28/18 11:00 03/28/18 12:00 03/28/18 12:20 Temperature Pulse Rate 84 96 H 87 Respiratory Rate 24 16 Blood Pressure 100/66 Pulse Oximetry 99 03/28/18 12:36 03/28/18 14:00 Temperature Pulse Rate 96 H Respiratory Rate 16 Blood Pressure Pulse Oximetry 99 Intake & Output 03/27/18 03/28/18 03/28/18 18:59 06:59 18:59 Intake Total 460 / 460 545 / 545 0 / 0 Output Total 640 / 640 365 / 365 220 / 220 Balance -180 / -180 180 / 180 -220 / -220 Weight 78.9 kg Intake: IV 400 / 400 545 / 545 Precedex Inj 200 MCG In NS Inj 100 / 100 50 / 50 48 ML @ 0.2 MCG/KG/HR 3.82 mls/ hr IV.CONT TITRATE PRN Rx#: [id number] Diprivan 1000 mg/100 ml Inj 1, 100 / 100 295 / 295 000 mg In 100 ml @ 5 MCG/KG/MIN 2.381 mls/hr IV.CONT TITRATE PRN Rx#:[id number] Zosyn 4.5 GM Premix 4.5 gm In 200 / 200 200 / 200 100 ml @ 200 mls/hr IV.SIG Q6H PILLO Rx#:[id number] Oral 0 / 0 0 / 0 Tube Feeding 60 / 60 0 / 0 Output: Urine 220 / 220 Urine Amount (Catheter) 640 / 640 365 / 365 0 / 0 Indwelling Urethral Catheter 640 / 640 365 / 365 0 / 0 Other: # Bowel Movements 0 - Urinary Catheter Management Indwelling Urethral Catheter Cath placed during this visit: yes Reason for continuing: Hourly intake/output Insertion date: 03/24/18 Insertion time: 06:20 Results - Labs CBC & Chem 7: 03/27/18 04:40 03/27/18 04:40 Laboratory Results - last 24 hr 03/28/18 03/28/18 02:55 10:54 APTT 27.5 Puncture Site Left radial Patient Temperature 98.6 O2 Saturation 96 ABG pH 7.42 ABG pCO2 56 H* ABG pO2 86 ABG HCO3 36 H ABG O2 Content 15.6 ABG Base Excess 10.9 H ABG Methemoglobin 0.8 John Test Present Hemoglobin 11.6 L Carboxyhemoglobin 0.9 O2 Delivery Device Ventilator Vent Setting Cpap 5 ps 5 peep Inspired O2 40 Critical Value Yes Microbiology 03/24/18 06:25 Blood - Peripheral Aerobic Blood Culture - Preliminary No growth in 4 days 03/24/18 06:25 Blood - Peripheral Anaerobic Blood Culture - Preliminary No growth in 4 days 03/24/18 06:15 Blood - Peripheral Aerobic Blood Culture - Preliminary No growth in 4 days 03/24/18 06:15 Blood - Peripheral Anaerobic Blood Culture - Preliminary No growth in 4 days 03/24/18 10:45 Sputum - Endotracheal Gram Stain - Final 03/24/18 10:45 Sputum - Endotracheal Sputum Culture - Final Haemophilus influenzae Assessment and Plan - Assessment (1) Acute hypercapnic respiratory failure Code(s): J96.02 - Acute respiratory failure with hypercapnia Status: Acute (2) Severe sepsis Code(s): A41.9 - Sepsis, unspecified organism; R65.20 - Severe sepsis without septic shock Status: Acute (3) Hypotension Code(s): I95.9 - Hypotension, unspecified Status: Acute (4) Bilateral pneumonia Code(s): J18.9 - Pneumonia, unspecified organism Status: Acute (5) Elevated troponin Code(s): R74.8 - Abnormal levels of other serum enzymes Status: Acute (6) History of COPD Code(s): Z87.09 - Personal history of other diseases of the respiratory system Status: Chronic (7) History of lung cancer Code(s): Z85.118 - Personal history of other malignant neoplasm of bronchus and lung Status: Chronic
[2018-03-29] MEDS: Pantoprazole Inj 40 MG Vial IV.PUSH SCH (00:36)
[2018-03-29] MEDS: Oral Hygiene Kit OROPHARYNG SCH ×2 (00:37→04:53)
[2018-03-29] MEDS: LORazepam 0.5 MG Tablet PO SCH ×5 (00:37→23:05)
[2018-03-29] MEDS: Piperacil/Tazo 4.5 GM Premix 4.5 GM/100 ML BAG IV.SIG SCH ×4 (03:30→21:31)
[2018-03-29] MEDS: Chlorhexidine Gluconate 2% 1 Pack (2 Cloths) TOPICAL SCH (04:00)
[2018-03-29 04:48] LABS: ABG PCO2 59 mmHg (38-42); ABG PO2 76 mmHg (61-120)
[2018-03-29 05:16] LABS: Chloride 98 meq/L (98-107); Sodium 141 meq/L (136-145)
[2018-03-29 05:18] LABS: Calcium 8.3 mg/dL (8.5-10.1)
[2018-03-29 05:19] LABS: Anion Gap 6 meq/L (5-15); Blood Urea Nitrogen 18 mg/dL (7-18); Carbon Dioxide 37.2 meq/L (21.0-32.0); Glucose,Random 109 mg/dL (74-106); Magnesium 2.1 mg/dL (1.5-2.5)
[2018-03-29 05:22] LABS: Glomerular Filtration Rate Greater Than 89 mL/min (>89); Phosphorus 3.6 mg/dL (2.5-4.9)
[2018-03-29] MEDS: MethylPREDNISolone Sod Succinate Inj 40 MG/ML Vial IV.PUSH SCH (05:36)
[2018-03-29 05:42] LABS: Baso # (Auto) 0.3 th/mm3 (0.0-0.2); Baso % (Auto) 2.4 % (0.0-2.0); Eos % (Auto) 0.1 % (0.0-4.0); Hematocrit 38.9 % (39.0-51.0); Hemoglobin 12.3 gm/dL (13.0-17.0); Lymph # (Auto) 0.7 th/mm3 (1.0-4.8); Lymph % (Auto) 5.6 % (9.0-44.0); Mean Corpuscular HGB Conc 31.5 % (32.0-36.0); Mean Corpuscular Hemoglobin 29.4 pg (27.0-34.0); Mean Corpuscular Volume 93.1 fL (80.0-100.0); Mean Platelet Volume 8.1 fL (7.0-11.0); Mono # (Auto) 0.7 th/mm3 (0.0-0.9); Mono % (Auto) 5.8 % (0.0-8.0); Neut # (Auto) 10.5 th/mm3 (1.8-7.7); Neut % (Auto) 86.1 % (16.0-70.0); Platelet Count 339 th/mm3 (150-450); Red Blood Count 4.18 mil/mm3 (4.50-5.90); Red Cell Distribution Width 14.9 % (11.6-17.2); White Blood Count 12.2 th/mm3 (4.0-11.0)
[2018-03-29 06:41] LABS: Lymphocytes 11 % (9-44); Metamyelocytes 4 % (0-1); Monocytes 9 % (0-8); RBC Morphology Normal (Normal)
[2018-03-29 06:42] LABS: Platelet Estimate Normal (Normal); Platelet Morphology Normal (Normal)
[2018-03-29] MEDS: Senna/Docusate Sodium 8.6/50 MG Tablet PO SCH ×2 (09:38→21:32)
--- NOTE | 2018-03-29 12:00 | P.PNIM ---
Subjective Interval history: 78-year-old male with known history of chronic hypoxic/hypercapnic respiratory failure, chronic obstructive pulmonary disease, history of lung cancer, who originally presented the hospital with significant shortness of breath, dyspnea. Patient was found to have acute respiratory failure, chest x- ray and CT findings showing bilateral nodules, consolidations, patient required emergent intubation for respiratory support and respiratory failure. Patient was admitted with appropriate management of Solu-Medrol, nebulizer treatments, antibiotics, ventilator support under critical care management. Patient was rather critically ill with significant hypotension requiring Levophed for management which was successfully discontinued on 03/27/18. Patient continued with daily sedation vacations and CPAP trials. Patient was successfully extubated on 03/28/18. Upon review of records also indicate patient did have a acute troponin elevation which could have been from demand ischemia, secondary to respiratory failure, use of Levophed for blood pressure management. Upon evaluating the patient today he indicates that he is a no code DNR. He does not want to be in the hospital anymore. He wants to be discharged today. He is in agreement with hospice consultation for discharge today. Patient still appears to be very weak, still on nasal cannula O2 supplementation at 4 L, looks very physically deconditioned and has not been out of bed since admission. We will respect the patient's wishes and consult hospice for further evaluation and management. Physical Exam Vital signs: Vital Signs 03/28/18 12:00 03/28/18 12:20 03/28/18 12:36 Temperature Pulse Rate 88 87 Respiratory Rate 24 16 16 Blood Pressure 115/64 Pulse Oximetry 99 99 03/28/18 13:00 03/28/18 14:00 03/28/18 15:00 Temperature Pulse Rate 96 H 96 H 112 H Respiratory Rate Blood Pressure 116/62 Pulse Oximetry 98 03/28/18 16:00 03/28/18 16:10 03/28/18 16:49 Temperature Pulse Rate 110 H 110 H Respiratory Rate 20 Blood Pressure 118/62 Pulse Oximetry 98 93 L 03/28/18 17:00 03/28/18 18:00 03/28/18 18:04 Temperature Pulse Rate 112 H 100 H Respiratory Rate Blood Pressure 96/73 L Pulse Oximetry 92 L 98 03/28/18 19:00 03/28/18 19:18 03/28/18 19:50 Temperature Pulse Rate 102 H 100 H Respiratory Rate 11 L 20 Blood Pressure 96/73 L Pulse Oximetry 93 L 90 L 93 L 03/28/18 20:00 03/28/18 21:00 03/28/18 22:00 Temperature 99.4 F Pulse Rate 102 H 98 H 96 H Respiratory Rate 23 22 22 Blood Pressure 129/66 112/57 L 129/73 Pulse Oximetry 93 L 93 L 92 L 03/28/18 22:53 03/28/18 22:56 03/28/18 23:00 Temperature Pulse Rate 96 H 96 H Respiratory Rate 22 22 Blood Pressure 118/62 Pulse Oximetry 93 L 93 L 03/29/18 00:00 03/29/18 01:00 03/29/18 02:00 Temperature 99.2 F Pulse Rate 97 H 71 92 H Respiratory Rate 36 H 32 H 32 H Blood Pressure 122/72 136/66 98/56 L Pulse Oximetry 94 L 93 L 93 L 03/29/18 03:00 03/29/18 03:20 03/29/18 03:32 Temperature Pulse Rate 89 90 Respiratory Rate 32 H 22 Blood Pressure 92/59 L Pulse Oximetry 96 96 03/29/18 04:00 03/29/18 05:00 03/29/18 06:00 Temperature 98.4 F Pulse Rate 88 77 89 Respiratory Rate 14 32 H 22 Blood Pressure 98/48 L 95/50 L 98/52 L Pulse Oximetry 97 93 L 94 L 03/29/18 07:00 03/29/18 08:00 03/29/18 09:27 Temperature 98.0 F 98.0 F Pulse Rate 86 92 H 107 H Respiratory Rate 17 25 H 20 Blood Pressure 113/62 113/92 H Pulse Oximetry 96 96 03/29/18 09:28 Temperature Pulse Rate Respiratory Rate Blood Pressure Pulse Oximetry 92 L Intake & Output 03/28/18 03/29/18 03/29/18 18:59 06:59 18:59 Intake Total 220 / 220 450 / 450 Output Total 745 / 745 2900 / 2900 Balance -525 / -525 -2450 / -2450 Weight 76.5 kg Intake: IV 100 / 100 300 / 300 Zosyn 4.5 GM Premix 4.5 gm In 100 / 100 300 / 300 100 ml @ 200 mls/hr IV.SIG Q6H [facility] Rx#:[id number] Oral 120 / 120 150 / 150 Tube Feeding 0 / 0 Output: Urine 40 / 40 Urine Amount (Catheter) 705 / 705 2900 / 2900 Indwelling Urethral Catheter 705 / 5 2900 / 2900 Narrative: GENERAL: Well-developed, well-nourished, patient does appear to be much older than he actually is. Still appears to be in mild respiratory distress. alert and orientated HEENT: Head is normocephalic without any lesions or masses noted. Facial features are symmetric. Eyes: Pupils equal round reactive to light. Extraocular muscles are intact. Conjunctivae were clear. Oropharyngeal: Pharynx without any erythema edema. Tongue is midline without deviation. Buccal mucosa is moist without any masses or lesions, patient is uses oxygen through his mouth not in his nose. NECK: Supple without any masses. Trachea midline no deviation. No JVD, no bruits are appreciated CARDIAC: Tachycardic with normal rhythm. S1/S2 are heard. No murmurs gallops or rubs. LUNGS: Decreased breath sounds noted bilaterally. Patient does have continued wheeze and rhonchi bilaterally. Patient is using accessory muscles on inspiration and expiration ABDOMEN: Soft, nontender. Nondistended. Bowel sounds heard in all 4 quadrants. No organomegaly or masses. Negative rebound, negative guarding EXTREMITIES: No edema, pulses are equal bilaterally. No cyanosis or clubbing NEUROLOGY: Mood and affect appear appropriate. Cranial nerves II through XII grossly intact. Muscle strength 5/5 in upper and lower extremities bilaterally. Deep tendon reflexes are 2+ in upper and lower extremities bilaterally. - Urinary Catheter Management Indwelling Urethral Catheter Cath placed during this visit: yes Reason for continuing: Hourly intake/output Insertion date: 03/24/18 Insertion time: 06:20 Results - Labs CBC & Chem 7: 03/29/18 04:50 03/29/18 04:50 Laboratory Results - last 24 hr 03/29/18 03/29/18 03/29/18 04:37 04:50 04:50 CBC w Diff Slide review pending WBC 12.2 H RBC 4.18 L Hgb 12.3 L Hct 38.9 L MCV 93.1 MCH 29.4 MCHC 31.5 L RDW 14.9 Plt Count 339 MPV 8.1 Neut % (Auto) 86.1 H Lymph % (Auto) 5.6 L [place] % (Auto) 5.8 Eos % (Auto) 0.1 Baso % (Auto) 2.4 H Neut # (Auto) 10.5 H Lymph # (Auto) 0.7 L [place] # (Auto) 0.7 Eos # (Auto) 0.0 Baso # (Auto) 0.3 H WBC Differential Manual diff final Seg Neuts % (Manual) 74 H Band Neuts % (Manual) 2 Lymphocytes % (Manual) 11 Monocytes % (Manual) 9 H Metamyelocytes % (Man) 4 H Abs Neuts (Manual) 9.8 H Differential Comment . Platelet Estimate Normal Platelet Morphology Normal RBC Morphology Normal Puncture Site Right radial Patient Temperature 98.6 O2 Saturation 94 ABG pH 7.42 ABG pCO2 59 H* ABG pO2 76 ABG HCO3 37 H ABG O2 Content 16.2 ABG Base Excess 12.0 H ABG Methemoglobin 0.8 John Test Present Hemoglobin 12.2 Carboxyhemoglobin 1.0 O2 Delivery Device Nasal cannula Liter Flow 4.00 Critical Value Yes Sodium 141 Potassium 4.0 Chloride 98 Carbon Dioxide 37.2 H Anion Gap 6 BUN 18 Creatinine 0.63 Estimated GFR Greater than 89 Random Glucose 109 H Calcium 8.3 L Phosphorus 3.6 Magnesium 2.1 Microbiology 03/24/18 06:25 Blood - Peripheral Aerobic Blood Culture - Final No growth in 5 days 03/24/18 06:25 Blood - Peripheral Anaerobic Blood Culture - Final No growth in 5 days 03/24/18 06:15 Blood - Peripheral Aerobic Blood Culture - Final No growth in 5 days 03/24/18 06:15 Blood - Peripheral Anaerobic Blood Culture - Final No growth in 5 days - Procedures EGD ESOPHAGUS: There was LA Class C esophagitis noted. STOMACH: The mucosa of the stomach appeared normal. DUODENUM: The duodenal mucosa appeared normal in the entire duodenum. No active bleeding or SRH. ADVERSE EVENTS: There were no complications. IMPRESSIONS: 1. There was LA Class C esophagitis noted 2. The mucosa of the stomach appeared normal 3. Normal duodenal mucosa in the entire duodenum 4. No active bleeding or SRH 5. Retroflexed views revealed a hiatal hernia Assessment and Plan - Plan Acute hypoxic/hypercapnic respiratory failure Acute respiratory distress syndrome Chronic obstructive pulmonary disease with acute exacerbation Bilateral pneumonia, with Haemophilus sputum History of lung cancer -Continue Zosyn -Patient is on Solu-Medrol 40 mg IV every 8 hours, changed to p.o. prednisone -Continue nebulizer treatments every 6 hours while awake and every 2 hours as needed -Continue budesonide nebulizer treatments -Continue to wean O2 supplementation maintain O2 sats greater than 88% -Incentive spirometry Elevated troponin -He will be non-ST elevated myocardial infarction, demand ischemia, secondary to Levophed use -Patient does not want any aggressive measures at this time, continue medical management -Continue aspirin -Unable use of beta-noah, nitroglycerin secondary to hypotension Upper GI bleed -Patient continued on Protonix 40 mg IV every 12 hours -EGD performed, please see results above -GI recommending proton pump inhibitor Acute kidney injury -Continued improvement with IV hydration -Continue monitor renal function Goals of care -Patient wants to be a no code DNR -Patient wants to go home today with hospice -Palliative care is following the patient -Hospice/case management has been consulted DVT prevention -Sequential compression devices Discharge Planning: Anticipate discharge today if accepted for hospice at home.
--- NOTE | 2018-03-29 15:24 | P.DS ---
Date of admission: 03/24/18 07:56 Primary care physician: Leroy Marie MD Attending physician on discharge: Jason Moore Anticipated date of discharge: 03/29/18 Brief History from admission: Patient is 78-year-old male with history of COPD, history of lung cancer status post chemotherapy and radiation, chronic sinusitis who was brought to emergency room for severe dyspnea. EMS was called by his roommates as the patient was severely short of breath and EMS intubated him. His fever 103 in the ER, blood pressure was borderline systolic in the 80s. Patient received 2 L normal saline IV fluid boluses in the ED. chest x-ray showed bilateral infiltrates. Received Levaquin and vancomycin after blood cultures were drawn. Critical care medicine was consulted for admission to ICU. I have requested additional 1 L fluid bolus. I have also started the patient on IV Solu-Medrol 125 mg IV x1 and 40 mg every 8. Change antibiotics to Zosyn and Levaquin. Send sputum culture check influenza. I evaluate the patient in the [facility] ICU. He is critically ill intubated sedated. I discussed with Both daughters. Patient has a history of lung cancer underwent chemo and radiation [address] scan done 9 months ago was negative for recurrence. However patient was not following up, he wanted no further treatment for lung cancer in case of recurrence. He also continues to smoke. I have updated the family and indicated that he is critically ill. They want to continue aggressive care at this time and reevaluate in 48-72 hours if there is no improvement. His troponin was noted to be 0.5 to most likely demand ischemia, started aspirin daily DS: Diagnosis - Discharge Diagnosis (1) GI bleed Status: Acute (2) Respiratory failure Status: Acute (3) COPD exacerbation Status: Acute (4) Bilateral pneumonia Status: Acute (5) Acute hypercapnic respiratory failure Status: Acute (6) Severe sepsis Status: Acute (7) Hypotension Status: Acute DS: Medications - Discharge Medications Prescriptions: azithromycin [Zithromax] 500 mg PO DAILY #7 tab doxycycline hyclate [Vibramycin] 100 mg PO BID #14 cap pantoprazole 40 mg PO BID #60 tab prednisone 0 pack PO PER PKG DIR #1 each DS: Summary Hospital Course: 78-year-old male with known history of chronic hypoxic/hypercapnic respiratory failure, chronic obstructive pulmonary disease, history of lung cancer, who originally presented the hospital with significant shortness of breath, dyspnea. Patient was found to have acute respiratory failure, chest x- ray and CT findings showing bilateral nodules, consolidations, patient required emergent intubation for respiratory support and respiratory failure. Patient was admitted with appropriate management of Solu-Medrol, nebulizer treatments, antibiotics, ventilator support under critical care management. Patient was rather critically ill with significant hypotension requiring Levophed for management which was successfully discontinued on 03/27/18. Patient continued with daily sedation vacations and CPAP trials. Patient was successfully extubated on 03/28/18. Upon review of records also indicate patient did have a acute troponin elevation which could have been from demand ischemia, secondary to respiratory failure, use of Levophed for blood pressure management. Upon evaluating the patient today he indicates that he is a no code DNR. He does not want to be in the hospital anymore. He wants to be discharged today. He is in agreement with hospice consultation for discharge today. Patient still appears to be very weak, still on nasal cannula O2 supplementation at 4 L, looks very physically deconditioned and has not been out of bed since admission. We will respect the patient's wishes and consult hospice for further evaluation and management. We will plan discharge home with hospice once arrangements made - Time Spent with Patient Total time spent providing and/or coordinating discharge services: Greater than 30 minutes Exam Vital signs: Vital Signs 03/28/18 16:00 03/28/18 16:10 03/28/18 16:49 Temperature Pulse Rate 110 H 110 H Respiratory Rate 20 Blood Pressure 118/62 Pulse Oximetry 98 93 L 03/28/18 17:00 03/28/18 18:00 03/28/18 18:04 Temperature Pulse Rate 112 H 100 H Respiratory Rate Blood Pressure 96/73 L Pulse Oximetry 92 L 98 03/28/18 19:00 03/28/18 19:18 03/28/18 19:50 Temperature Pulse Rate 102 H 100 H Respiratory Rate 11 L 20 Blood Pressure 96/73 L Pulse Oximetry 93 L 90 L 93 L 03/28/18 20:00 03/28/18 21:00 03/28/18 22:00 Temperature 99.4 F Pulse Rate 102 H 98 H 96 H Respiratory Rate 23 22 22 Blood Pressure 129/66 112/57 L 129/73 Pulse Oximetry 93 L 93 L 92 L 03/28/18 22:53 03/28/18 22:56 03/28/18 23:00 Temperature Pulse Rate 96 H 96 H Respiratory Rate 22 22 Blood Pressure 118/62 Pulse Oximetry 93 L 93 L 03/29/18 00:00 03/29/18 01:00 03/29/18 02:00 Temperature 99.2 F Pulse Rate 97 H 71 92 H Respiratory Rate 36 H 32 H 32 H Blood Pressure 122/72 136/66 98/56 L Pulse Oximetry 94 L 93 L 93 L 03/29/18 03:00 03/29/18 03:20 03/29/18 03:32 Temperature Pulse Rate 89 90 Respiratory Rate 32 H 22 Blood Pressure 92/59 L Pulse Oximetry 96 96 03/29/18 04:00 03/29/18 05:00 03/29/18 06:00 Temperature 98.4 F Pulse Rate 88 77 89 Respiratory Rate 14 32 H 22 Blood Pressure 98/48 L 95/50 L 98/52 L Pulse Oximetry 97 93 L 94 L 03/29/18 07:00 03/29/18 08:00 03/29/18 08:09 Temperature 98.0 F 98.0 F Pulse Rate 86 92 H 94 H Respiratory Rate 17 22 23 Blood Pressure 113/62 113/57 L 119/76 Pulse Oximetry 96 96 96 03/29/18 09:00 03/29/18 09:27 03/29/18 09:28 Temperature 98.3 F Pulse Rate 102 H 107 H Respiratory Rate 19 20 Blood Pressure 114/66 Pulse Oximetry 93 L 92 L 03/29/18 10:00 03/29/18 11:00 03/29/18 12:00 Temperature Pulse Rate 112 H 110 H 110 H Respiratory Rate 17 18 18 Blood Pressure 102/48 L 107/63 113/57 L Pulse Oximetry 93 L 95 93 L 03/29/18 13:00 03/29/18 14:00 03/29/18 15:00 Temperature Pulse Rate 110 H 106 H 110 H Respiratory Rate 17 19 28 H Blood Pressure 108/51 L 99/63 L Pulse Oximetry 93 L 93 L 91 L Intake & Output 03/28/18 03/29/18 03/29/18 18:59 06:59 18:59 Intake Total 220 / 220 450 / 450 390 / 390 Output Total 745 / 745 2900 / 2900 480 / 480 Balance -525 / -525 -2450 / -2450 -90 / -90 Weight 76.5 kg Intake: IV 100 / 100 300 / 300 100 / 100 Zosyn 4.5 GM Premix 4.5 gm In 100 / 100 300 / 300 100 / 100 100 ml @ 200 mls/hr IV.SIG Q6H [facility] Rx#:[id number] Oral 120 / 120 150 / 150 290 / 290 Tube Feeding 0 / 0 Output: Urine 40 / 40 90 / 90 Urine Amount (Catheter) 705 / 705 2900 / 2900 390 / 390 Indwelling Urethral Catheter 705 / 705 2900 / 2900 390 / 390 Narrative: GENERAL: Well-developed, well-nourished, patient does appear to be much older than he actually is. Still appears to be in mild respiratory distress. alert and orientated HEENT: Head is normocephalic without any lesions or masses noted. Facial features are symmetric. Eyes: Pupils equal round reactive to light. Extraocular muscles are intact. Conjunctivae were clear. Oropharyngeal: Pharynx without any erythema edema. Tongue is midline without deviation. Buccal mucosa is moist without any masses or lesions, patient is uses oxygen through his mouth not in his nose. NECK: Supple without any masses. Trachea midline no deviation. No JVD, no bruits are appreciated CARDIAC: Tachycardic with normal rhythm. S1/S2 are heard. No murmurs gallops or rubs. LUNGS: Decreased breath sounds noted bilaterally. Patient does have continued wheeze and rhonchi bilaterally. Patient is using accessory muscles on inspiration and expiration ABDOMEN: Soft, nontender. Nondistended. Bowel sounds heard in all 4 quadrants. No organomegaly or masses. Negative rebound, negative guarding EXTREMITIES: No edema, pulses are equal bilaterally. No cyanosis or clubbing NEUROLOGY: Mood and affect appear appropriate. Cranial nerves II through XII grossly intact. Moving all extremities, speech is clear Results Procedures completed during hospitalization: EGD ESOPHAGUS: There was LA Class C esophagitis noted. STOMACH: The mucosa of the stomach appeared normal. DUODENUM: The duodenal mucosa appeared normal in the entire duodenum. No active bleeding or SRH. ADVERSE EVENTS: There were no complications. IMPRESSIONS: 1. There was LA Class C esophagitis noted 2. The mucosa of the stomach appeared normal 3. Normal duodenal mucosa in the entire duodenum 4. No active bleeding or SRH 5. Retroflexed views revealed a hiatal hernia Labs on day of discharge: Labs from last 24 hours 03/29/18 03/29/18 03/29/18 04:50 04:50 04:37 CBC w Diff Slide review pending WBC 12.2 H RBC 4.18 L Hgb 12.3 L Hct 38.9 L MCV 93.1 MCH 29.4 MCHC 31.5 L RDW 14.9 Plt Count 339 MPV 8.1 Neut % (Auto) 86.1 H Lymph % (Auto) 5.6 L [place] % (Auto) 5.8 Eos % (Auto) 0.1 Baso % (Auto) 2.4 H Neut # (Auto) 10.5 H Lymph # (Auto) 0.7 L [place] # (Auto) 0.7 Eos # (Auto) 0.0 Baso # (Auto) 0.3 H WBC Differential Manual diff final Seg Neuts % (Manual) 74 H Band Neuts % (Manual) 2 Lymphocytes % (Manual) 11 Monocytes % (Manual) 9 H Metamyelocytes % (Man) 4 H Abs Neuts (Manual) 9.8 H Differential Comment . Platelet Estimate Normal Platelet Morphology Normal RBC Morphology Normal Puncture Site Right radial Patient Temperature 98.6 O2 Saturation 94 ABG pH 7.42 ABG pCO2 59 H* ABG pO2 76 ABG HCO3 37 H ABG O2 Content 16.2 ABG Base Excess 12.0 H ABG Methemoglobin 0.8 John Test Present Hemoglobin 12.2 Carboxyhemoglobin 1.0 O2 Delivery Device Nasal cannula Liter Flow 4.00 Critical Value Yes Sodium 141 Potassium 4.0 Chloride 98 Carbon Dioxide 37.2 H Anion Gap 6 BUN 18 Creatinine 0.63 Estimated GFR Greater than 89 Random Glucose 109 H Calcium 8.3 L Phosphorus 3.6 Magnesium 2.1 - Impressions ITS Impressions Chest CT 03/24/18 09:43 CONCLUSION: 1. Multiple bilateral nodular airspace opacities and hilar adenopathy concerning for neoplasm. There is an endotracheal tube identified within the trachea with a small amount of fluid seen within the trachea. Chest X-Ray 03/27/18 06:00 CONCLUSION: No evidence for infiltrate Discharge Plan - Discharge Disposition Patient Disposition: 50 Hospice/Home - Discharge Condition Condition: Serious - Discharge Order Discharge Orders: Discharge Order (Routine); Ordered 03/29/18 Ordered By: Dariusz Mchugh - Discharge Details Anticipated Discharge Date: 03/29/18 Discharge Comment: Okay to discharge home with hospice once arrangements made - Physicians Team Primary Care Provider: Leroy Marie Attending Provider: Jason Moore Other Providers: Philipp Morataya MD ; David Sánchez MD ; Pawel Armas ; Amna Woo MD
--- NOTE | 2018-03-29 19:10 | MB ---
cc: Amna Woo MD DATE: 03/29/2018 REASON FOR CONSULTATION: COPD exacerbation. HISTORY OF PRESENT ILLNESS: Mr. May is a 78-year-old male with known history of COPD of severe degree as well as history of lung cancer, post-radiation chemotherapy, admitted with acute exacerbation of COPD and respiratory failure requiring intubation and mechanical ventilation, subsequently extubated, presently on oxygen via nasal cannula. I am asked to see him at this time for his underlying COPD. The patient has been seen and known to Dr. Sonny Holly who I am covering for when he is out of town at this time. PAST MEDICAL HISTORY: 1. COPD. 2. Lung cancer post-radiation chemo about 2 years ago, apparently without recurrence. 3. Chronic sinusitis. 4. Diverticular disease. SOCIAL HISTORY: Over [id number] history, continues to smoke up until presentation. Does not drink any alcohol, does not use drugs. MEDICATIONS: Include: 1. Nebulized albuterol and ipratropium as well as Pulmicort. 2. Lactulose. 3. Protonix. 4. Ativan. 5. Prednisone 40 mg twice daily. 6. Zosyn. ALLERGIES: AMOXICILLIN, CEFUROXIME, CLAVULANIC ACID, SULFA DRUGS. FAMILY HISTORY: Noncontributory. REVIEW OF SYSTEMS: A 12-point review of systems as per HPI and past history, otherwise negative. PHYSICAL EXAMINATION: GENERAL: The patient is alert. VITAL SIGNS: Temperature 98, pulse 90, respirations 24, blood pressure 112/70, oxygen saturation 92% on oxygen via nasal cannula. HEENT: Unremarkable. Eyes without icterus. NECK: Without adenopathy, thyroid enlargement. Central trachea. CHEST: Few scattered rhonchi bilaterally. CARDIAC: PMI distant. S1, S2 audible. No murmur, no rub. ABDOMEN: Lax, audible bowel sounds. PSYCHIATRIC: No clubbing, cyanosis or edema. SKIN: Normal. No lymphadenopathy. LABORATORY DATA: White count 12,000, hemoglobin 12, hematocrit 38, platelets 339,000. Sodium 141, potassium 4.0, BUN 6, creatinine 0.6. APTT 27. Chest x-ray 03/27/2018 without acute infiltrate or mass lesion. IMPRESSION: 1. Chronic pulmonary disease exacerbation, improved. 2. Hypoxic and hypercarbic respiratory failure. 3. Lung carcinoma, in remission. 4. Upper gastrointestinal bleed during hospitalization, resolved. PLAN: The patient will be maintained on oxygen therapy as needed. Oral steroid therapy tapered as tolerated. Activity will be increased. The patient seems to be progressing favorably at this point. I do thank you for asking me to partake in Mr. May's care. Aman Woo MD WWW/sv , 06:49 PM , 06:59 PM
[2018-03-29] MEDS: predniSONE 20 MG Tablet PO SCH (21:32)
[2018-03-30] MEDS: Piperacil/Tazo 4.5 GM Premix 4.5 GM/100 ML BAG IV.SIG SCH ×2 (03:12→08:09)
[2018-03-30] MEDS: LORazepam 0.5 MG Tablet PO SCH ×2 (05:46→13:05)
[2018-03-30] MEDS: predniSONE 20 MG Tablet PO SCH (08:07)
[2018-03-30] MEDS: Senna/Docusate Sodium 8.6/50 MG Tablet PO SCH (08:08)
--- NOTE | 2018-03-30 11:44 | P.PNIM ---
Subjective Interval history: 78-year-old male who is seen examined today for follow-up on hypoxic respiratory failure, COPD. Patient is resting comfortably in bed. O2 eating on O2 supplementation. Patient was actually discharged yesterday to hospice. Arrangements are being made for patient be discharged to home with hospice care. Family was in the room and discussed care extensively that they do not feel comfortable with the patient going home. They requested that the patient go to a facility. The patient now has agreed to go to hospice care facility. Still awaiting arrangements to be made by hospice Physical Exam Vital signs: Last Vital Signs Temp 98.0 F 03/30/18 10:00 Pulse 102 H 03/30/18 11:00 Resp 22 03/30/18 11:00 BP 105/85 03/30/18 11:00 Pulse Ox 95 03/30/18 11:00 Intake & Output 03/28/18 03/29/18 03/30/18 03/31/18 06:59 06:59 06:59 06:59 Intake Total 1005 / 1005 670 / 670 1290 / 1290 1140 / 1140 Output Total 1005 / 1005 3645 / 3645 1920 / 1920 70 / 70 Balance 0 / 0 -2975 / -2975 -630 / -630 1070 / 1070 Weight 78.9 kg 76.5 kg 73.6 kg Narrative: GENERAL: Well-developed, well-nourished, patient does appear to be much older than he actually is.. alert and orientated HEENT: Head is normocephalic without any lesions or masses noted. Facial features are symmetric. Eyes: Pupils equal round reactive to light. Extraocular muscles are intact. Conjunctivae were clear. NECK: Supple without any masses. Trachea midline no deviation. No JVD, no bruits are appreciated CARDIAC: Tachycardic with normal rhythm. S1/S2 are heard. No murmurs gallops or rubs. LUNGS: Decreased breath sounds noted bilaterally. Breath sounds are improving. Only very minimal wheeze on end expiration. Patient is using accessory muscles on inspiration and expiration ABDOMEN: Soft, nontender. Nondistended. Bowel sounds heard in all 4 quadrants. No organomegaly or masses. Negative rebound, negative guarding EXTREMITIES: No edema, pulses are equal bilaterally. No cyanosis or clubbing NEUROLOGY: Mood and affect appear appropriate. Cranial nerves II through XII grossly intact. Moving all extremities, speech is clear Urinary Catheter Management Indwelling Urethral Catheter: Cath placed during this visit: yes Urethral indwelling: No Insertion date: 03/26/18 Insertion time: 06:20 Results Labs CBC & Chem 7: 03/29/18 04:50 03/29/18 04:50 Labs: Microbiology 03/24/18 06:25 Blood - Peripheral Aerobic Blood Culture - Final No growth in 5 days 03/24/18 06:25 Blood - Peripheral Anaerobic Blood Culture - Final No growth in 5 days 03/24/18 06:15 Blood - Peripheral Aerobic Blood Culture - Final No growth in 5 days 03/24/18 06:15 Blood - Peripheral Anaerobic Blood Culture - Final No growth in 5 days Procedures Procedures: EGD ESOPHAGUS: There was LA Class C esophagitis noted. STOMACH: The mucosa of the stomach appeared normal. DUODENUM: The duodenal mucosa appeared normal in the entire duodenum. No active bleeding or SRH. ADVERSE EVENTS: There were no complications. IMPRESSIONS: 1. There was LA Class C esophagitis noted 2. The mucosa of the stomach appeared normal 3. Normal duodenal mucosa in the entire duodenum 4. No active bleeding or SRH 5. Retroflexed views revealed a hiatal hernia Assessment and Plan (1) GI bleed: Code(s): K92.2 - Gastrointestinal hemorrhage, unspecified Status: Acute (2) Respiratory failure: Code(s): J96.90 - Respiratory failure, unspecified, unspecified whether with hypoxia or hypercapnia Status: Acute (3) COPD exacerbation: Code(s): J44.1 - Chronic obstructive pulmonary disease with (acute) exacerbation Status: Acute (4) Bilateral pneumonia: Code(s): J18.9 - Pneumonia, unspecified organism Status: Acute (5) Acute hypercapnic respiratory failure: Code(s): J96.02 - Acute respiratory failure with hypercapnia Status: Acute (6) Severe sepsis: Code(s): A41.9 - Sepsis, unspecified organism; R65.20 - Severe sepsis without septic shock Status: Acute (7) Hypotension: Code(s): I95.9 - Hypotension, unspecified Status: Acute Plan Acute hypoxic/hypercapnic respiratory failure Acute respiratory distress syndrome Chronic obstructive pulmonary disease with acute exacerbation Bilateral pneumonia, with Haemophilus sputum History of lung cancer -Continue Zosyn -Continue p.o. prednisone -Continue nebulizer treatments every 6 hours while awake and every 2 hours as needed -Continue budesonide nebulizer treatments -Continue to wean O2 supplementation maintain O2 sats greater than 88% -Incentive spirometry Elevated troponin -He will be non-ST elevated myocardial infarction, demand ischemia, secondary to Levophed use -Patient does not want any aggressive measures at this time, continue medical management -Continue aspirin -Unable use of beta-noah, nitroglycerin secondary to hypotension and low blood pressure Upper GI bleed -Patient continued on Protonix 40 mg IV every 12 hours -EGD performed, please see results above -GI recommending proton pump inhibitor Acute kidney injury -Continued improvement with IV hydration -Continue monitor renal function Goals of care -Patient wants to be a no code DNR -Patient has been accepted to hospice, they are making arrangements for discharge planning DVT prevention -Sequential compression devices Discharge Planning: Patient has been discharged with hospice once arrangements made, _ (1) Respiratory failure Qualifiers: Chronicity: Respiratory failure complication: (2) Bilateral pneumonia Qualifiers: Aspiration pneumonia type: Lung location: Pneumonia type: (3) Hypotension Qualifiers: Hypotension type: Trimester:
== END 2018-03-30 15:35 | disposition hospice, inpatient (51) ==
LOC: PHED 06:02 → PHEDA 07:56 → PHICU 08:54
PROVIDERS: ADMIT Hospitalist; ATTEND Hospitalist
PROC: PANENDO (2018-03-26 16:48)
DX: R59.0 Localized enlarged lymph nodes; E86.0 Dehydration; J14 Pneumonia due to Hemophilus influenzae; K57.90 Diverticulosis of intestine, part unspecified, without perforation or abscess without bleeding; Z79.51 Long term (current) use of inhaled steroids; J44.0 Chronic obstructive pulmonary disease with (acute) lower respiratory infection; J80 Acute respiratory distress syndrome; K20.9 Esophagitis, unspecified; Z85.118 Personal history of other malignant neoplasm of bronchus and lung; K44.9 Diaphragmatic hernia without obstruction or gangrene; F17.210 Nicotine dependence, cigarettes, uncomplicated; F41.9 Anxiety disorder, unspecified; I95.9 Hypotension, unspecified; A41.9 Sepsis, unspecified organism; R65.20 Severe sepsis without septic shock; K92.2 Gastrointestinal hemorrhage, unspecified; Z92.3 Personal history of irradiation; J96.21 Acute and chronic respiratory failure with hypoxia; Z66 Do not resuscitate; I24.8 Other forms of acute ischemic heart disease; N17.9 Acute kidney failure, unspecified; M19.90 Unspecified osteoarthritis, unspecified site; J96.22 Acute and chronic respiratory failure with hypercapnia; J44.1 Chronic obstructive pulmonary disease with (acute) exacerbation; J18.9 Pneumonia, unspecified organism; Z92.21 Personal history of antineoplastic chemotherapy